=== PATIENT | male | born 1965 | race Caucasian/White ===

== ENCOUNTER 2017-04-22 23:25 | Emergency (ER) | payer OTHER ==
[2017-04-22] MEDS ORDERED: NS 1000 ML 1,000 ML ONE (23:29)
[2017-04-22 23:46] VITALS: BMI 24.4
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
[2017-04-23 00:17] LABS: BASOPHILS % (AUTO) 0.8 % (0.2-1.0); EOSINOPHILS # (AUTO) 0.1 x10^3/uL (0.0-0.2); EOSINOPHILS % (AUTO) 1.3 % (0.9-2.9); HEMOGLOBIN 14.6 g/dL (13.5-18.0); LYMPHOCYTES # (AUTO) 1.7 X10^3/uL (1.3-2.9); LYMPHOCYTES % (AUTO) 29.5 % (21.0-51.0); MEAN CORPUSCULAR HEMOGLOBIN 28.5 pg (27.0-34.0); MEAN CORPUSCULAR HGB CONC 33.9 g/dL (33.0-35.0); MEAN CORPUSCULAR VOLUME 84.1 fL (80.0-100.0); MEAN PLATELET VOLUME 10.5 fL (7.4-11.0); MONOCYTES # (AUTO) 0.5 x10^3/uL (0.3-0.8); MONOCYTES % (AUTO) 9.3 % (0.0-13.0); NEUTROPHILS # (AUTO) 3.4 x10^3/uL (2.2-4.8); NEUTROPHILS % (AUTO) 59.1 % (42.0-75.0); PLATELET COUNT 101 X10^3/uL (150.0-450.0); RED BLOOD COUNT 5.12 X10^6/uL (4.7-6.0); RED CELL DISTRIBUTION WIDTH 14.6 % (11.6-16.5); WHITE BLOOD COUNT 5.8 X10^3/uL (3.6-10.0)
[2017-04-23 00:23] LABS: ALANINE AMINOTRANSFERASE 34 Units/L (12-78); ALBUMIN 3.4 g/dL (3.4-5.0); ALKALINE PHOSPHATASE 173 Units/L (46-116); ASPARTATE AMINO TRANSFERASE 13 Units/L (15-37); BLOOD UREA NITROGEN 13 mg/dL (7-18); CALCIUM 8.6 mg/dL (8.5-10.1); CHLORIDE 98 mmol/L (98-107); COR NA(FOR HYPERGLY) 141 mmol/L (136-145); CREATININE 1.56 mg/dL (0.70-1.30); SODIUM 133 mmol/L (136-145); TOTAL PROTEIN 6.8 g/dL (6.4-8.2); eGFR BLACK RACES 60 (>60); eGFR NON BLACK RACES 50 (>60)
[2017-04-23 00:35] LABS: HEMOGLOBIN A1C 10.2 % (4.5-6.2)
[2017-04-23 00:47] LABS: CKMB % 1.3 % (<4); CREATINE KINASE 78 Units/L (39-308); CREATINE KINASE MB < 1.0 ng/mL (0-4.0); TROPONIN I < 0.02 ng/mL (0-1.5)
--- NOTE | 2017-04-23 02:08 | CT ---
CT head without contrast Indication: New onset seizure Technique: Helical CT images of the brain were obtained without IV contrast. Reformatted images in th e coronal and sagittal planes were also generated for review. Comparison: 01/18/2016 Findings: The brain is stable in appearance since prior exam. There is unchanged encephalomalacia of the right temporoparietal lobe, likely postsurgical given adjacent parietal craniotomy defect. Chronic appearin g atrophy of the left frontal and bilateral temporal lobes also appears stable. There is moderate gen eralized atrophy with proportional compensatory ventricular and sulcal enlargement. Mild periventricu lar and subcortical white matter microangiopathic disease also appears similar. No intracranial hemorrhage, visible acute infarction, extra-axial collection or mass is otherwise veronica ntified. The visualized paranasal sinuses and mastoid air cells are clear. Remote left medial orbital wall fracture is again noted. No acute osseous or soft tissue abnormality is otherwise identified. Impression: No acute abnormality or significant change since prior exam. Stable postsurgical changes and chronic appearing encephalomalacia of the right parietal, left fronta l and bilateral temporal lobes. Reported By:
[2017-04-23 03:01] VITALS: BP 140/73
== END 2017-04-23 03:05 | disposition home or self-care (01) ==
LOC: ER 23:25
DX: R56.9 Unspecified convulsions (principal); R73.9 Hyperglycemia, unspecified
CPT/HCPCS: 36415; 70450; 80053; 82009; 82550; 82553; 83036; 84484; 85025; 93005; 93010; 96365; 99283; A4222

== ENCOUNTER 2017-10-20 00:33 | Emergency (ER) | payer OTHER ==
[2017-10-20 00:46] VITALS: BP 124/79; BMI 27.3
[2017-10-20] MEDS ORDERED: SALINE 3% 15 ML NEB TX ONE (01:53)
--- NOTE | 2017-10-20 01:55 | DR.AMS ---
HPI - Time Seen Time seen: 01:49 - PCP Primary Care Physician: MARQUIS - Complaint Cheif Complaint Doctors Comments: states patient has been having fever, high pulse, lethargy with problems breathing for the past 2-3 hours getting worst. States his temperature at home was 99 but had gone up to 101 in the emergency room. States she has not given him anything for fever. Family states he was admitted in [place] recently with similar problems and they found he had aspiration pneumonia. Family states he gets choked when he eats and he tries to eat to fast and the food gets stuck in his throat at times. states he has had problems since his brain injury in 2014. Family denies any recent trauma. He denies chest pain, cold or cough. Chief Complaint:: STARTED HAVING CHILLS AND WEAKNESS AROUND 2300 LAST NIGHT AND STATES THAT HE HAS BEEN VERY OUT OF CHARACTER AND HAVING ALTERED MENTAL STATUS Self Treatment fo Chief Complaint: WAS IN HOSPITAL IN [place] FOR ASPIRATION PNEUMONIA - Reviewed Nurses Notes Reviewed: Yes - Source History Provided: Patient, Significant Other - Mode of Arrival Mode of Arrival: Wheelchair - Timing Onset of Chief Complaint: 10/19/17 Came On: Gradually Symptoms: Worsening Symptom Onset: Unknown - Duration Duration: Constant How lon Duration: Hours - Quality Quality: Decreased Alertness, Change in Behavior, Confusion - Severity Severity: Severe, Unable to care for self - Context Recent: Fever, Cough History Of: CVA, Dementia - Associated Signs and Symptoms Associated Signs and Symptoms: Change in Behavior, Change in Memory, Decreased Oral Intake PMH - PMH Past Medical History: Yes Past Medical History: Anxiety, Arthritis, Depression, Diabetes, Dyslipidemia, GERD, Hypertension, Seizures Past Medical History Comment: TRAUMATIC BRAIN INJURY Past Surgical History: Yes Surgical History: Ortho Surgery Past Surgical History Comment: BRAIN SURGERY 2014, BACK SURGERY 1994 - Family History History of Family Medical Conditions: Yes Family Medical History: Diabetes Mellitus, Hypertension - Social History Does patient currently use any type of tobacco product: No Have you used tobacco products in the last 12 months: No Type of Tobacco Use: None Does any household member use tobacco: No Alcohol Use: None Do you use any recreational Drugs:: No Lives With: Family Lives Where: Home - infectious screening In the last 2 months have you had wt loss of >10#?: NO Have you had fever, night sweats or hemotysis?: No Have you traveled outside the country in the last 6 months?: No Isolation: Standard ROS - Review of Systems Constitutional: No Symptoms Reported, Fever, Weakness, Loss of Appetite Eyes: No Symptoms Reported ENTM: No Symptoms Reported Respiratoy: No Symptoms Reported. negative: See HPI, Productive Cough, Non- Productive Cough, Moist Cough, Dry Cough, Hacking Cough, Barking Cough, Brassy Cough, Orthopnea, Short of Breath, Stridor, Wheezing, Hemoptysis, Other Cardiovascular: No Symptoms Reported Gastrointestinal/Abdominal: No Symptoms Reported Genitourinary: No Symptoms Reported. negative: See HPI, Discharge, Dysuria, Frequency, Hematuria, Pain, Bleeding, Other Neurological: No Symptoms Reported, Weakness Musculoskeletal: No Symptoms Reported Integumentary: No Symptoms Reported Hematologic/Lymphatic: No Symptoms Reported Endocrine: No Symptoms Reported Psychiatric: No Symptoms Reported. negative: See HPI, Anxiety, Depression, Hallucinations, Excessive crying, Suicidal, Other PE - Vitals Vital Signs: Temp Pulse Resp BP BP Pulse Ox 10/20/17 00:35 101.2 F H 138 H 24 124/79 97 04/23/17 03:00 140/73 140/73 - General Limitations: No Limitations General Appearance: Alert, In Distress (moderate) - Head Head Exam: Normal Inspection, Atraumatic, Normocephalic Head Exam Physical: negative: Laceration, Abrasion, Contusion, Hematoma, Raccoon Eyes, Wheat's Sign, Tenderness of Temporal Artery, CSF Rhinorrhea, CSF Otorrhea, Other - Eyes Eye exam: Normal Appearance, PERRL, EOMI. negative: Scleral Icterus, Conjunctival Injection, Nystagmus, Miosis, Mydrasis, Periorbital Swelling, Periorbital Tenderness, Other Pupils: Regular, Round: Bilateral - ENT ENT Exam: Normal Exam, Normal Oropharynx, Normal External Ear Exam, Mucous Membranes Moist, TM's Normal Bilaterally External Ear Exam: Normal External Inspection TM/Canal Exam: Bilateral Normal Nose Exam: Normal Nose Exam Mouth Exam: Normal Inspection. negative: Drooling, Trismus, Lip Swelling, Tongue Elevation, Tongue Swelling, Laceration, Other Throat Exam: Normal Inspection - Neck Neck Exam: Normal Inspection, Full ROM, Trachea Midline. negative: Tenderness, Meningismus, Lymphadenopathy, Thyromegaly, Other - Chest Chest Inspection: Normal Inspection, Symmetric Chest Wall Rise - Respiratory Respiratory Exam: Normal Lung Sounds Bilat Respiratory Exam: Bilateral Clear to Auscultation, Bilateral Decreased Breath Sounds - Cardiovascular Cardiovascular Exam: Regular Rate, Normal Rhythm, Normal Heart Sounds, Systolic Murmur - Abdominal Exam Abdominal Exam: Normal Inspection, Normal Bowel Sounds, Soft Abdominal Tenderness: negative: RUQ, RLQ, LUQ, LLQ, Epigastrium, Suprapubic, Diffuse, Mild, Moderate, Severe, Other - Extremities Extremities Exam: Normal Inspection, Full ROM, Normal Capillary Refill. negative: Tenderness, Edema, Joint Swelling, Calf Tenderness, Other - Back Back Exam: Normal Inspection, Full ROM - Neurological Neurological Exam: Alert, Oriented X3, CN II-XII Intact, Normal Gait, Reflexes Normal Patient Oriented To: Person, Place, Time Speech: Expressive Aphasia Cranial Nerve Exam: EOM Function (II, III, IV, ): Normal, Facial Sensation (V) : Normal, Facial Palsy (VII): Normal, Gag reflex (XI): Normal, Spinal Accessory Function (XI): Normal, Tongue Deviation: Normal Cerebellar Function: Normal Gait Motor Strength - LUE: 5/5 Motor Strength - RUE: 5/5 Motor Strength - LLE: 5/5 Motor Strength - RLE: 5/5 Upper Motor Neuron Exam: Sensory Extinction: Normal Sensory Exam Upper Extremity: Light Touch: Normal DTR: Patellar (L): 3+, patellar (R): 3+ - Psychological Psychiatric Exam: Normal Affect, Normal Mood Expanded Psychiatric Exam: Poor Eye Contact - Skin Skin Exam: Warm, Dry, Intact, Normal Color ROR - Labs Reviewed Laboratory Results Reviewed?: Yes Result Diagrams: 10/20/17 02:05 10/20/17 02:05 Laboratory: WBC 10.7 X10^3/uL (3.6-10.0) H 10/20/17 02:05 RBC 4.83 X10^6/uL (4.7-6.0) 10/20/17 02:05 Hgb 14.2 g/dL (13.5-18.0) 10/20/17 02:05 Hct 41.0 % (42.0-54.0) L 10/20/17 02:05 MCV 84.9 fL (80.0-100.0) 10/20/17 02:05 MCH 29.3 pg (27.0-34.0) 10/20/17 02:05 MCHC 34.6 g/dL (33.0-35.0) 10/20/17 02:05 RDW 15.9 % (11.6-16.5) 10/20/17 02:05 Plt Count 104 X10^3/uL (150.0-450.0) L 10/20/17 02:05 Plt Count Comment Adequate (ADEQUATE) 10/20/17 02:05 MPV 9.6 fL (7.4-11.0) 10/20/17 02:05 Neut % (Auto) 91.8 % (42.0-75.0) H 10/20/17 02:05 Lymph % (Auto) 3.2 % (21.0-51.0) L 10/20/17 02:05 [place] % (Auto) 4.4 % (0.0-13.0) 10/20/17 02:05 Eos % (Auto) 0.2 % (0.9-2.9) L 10/20/17 02:05 Baso % (Auto) 0.4 % (0.2-1.0) 10/20/17 02:05 Neut # (Auto) 9.8 x10^3/uL (2.2-4.8) H 10/20/17 02:05 Lymph # (Auto) 0.3 X10^3/uL (1.3-2.9) L 10/20/17 02:05 [place] # (Auto) 0.5 x10^3/uL (0.3-0.8) 10/20/17 02:05 Eos # (Auto) 0.0 x10^3/uL (0.0-0.2) 10/20/17 02:05 Baso # (Auto) 0.0 X10^3/uL (0.0-0.1) 10/20/17 02:05 Absolute Nucleated RBC 0.0 /100WBC 10/20/17 02:05 Total Counted 100 10/20/17 02:05 Neutrophils % (Manual) 86 % (39-76) H 10/20/17 02:05 Band Neutrophils % 6 % (0-10) 10/20/17 02:05 Lymphocytes % (Manual) 6 % (13-43) L 10/20/17 02:05 Monocytes % (Manual) 2 % (4-9) L 10/20/17 02:05 Plt Morphology Comment Normal (NORMAL) 10/20/17 02:05 RBC Morphology Normal (NORMAL) 10/20/17 02:05 Sodium 136 mmol/L (136-145) 10/20/17 02:05 Corrected Sodium 137 mmol/L (136-145) 10/20/17 02:05 Potassium 4.9 mmol/L (3.5-5.1) 10/20/17 02:05 Chloride 99 mmol/L (98-107) 10/20/17 02:05 Carbon Dioxide 26.4 mmol/L (21-32) 10/20/17 02:05 BUN 25 mg/dL (7-18) H 10/20/17 02:05 Creatinine 1.40 mg/dL (0.70-1.30) H 10/20/17 02:05 Est GFR (MDRD) Af Amer > 60 (>60) 10/20/17 02:05 Est GFR (MDRD) Non-Af 57 (>60) L 10/20/17 02:05 Glucose 127 mg/dL (65-99) H 10/20/17 02:05 Calcium 9.1 mg/dL (8.5-10.1) 10/20/17 02:05 Corrected Calcium TNP 10/20/17 02:05 Total Bilirubin 0.40 mg/dL (0.2-1.0) 10/20/17 02:05 AST 13 Units/L (15-37) L 10/20/17 02:05 ALT 22 Units/L (12-78) 10/20/17 02:05 Alkaline Phosphatase 112 Units/L (46-116) 10/20/17 02:05 Total Protein 8.0 g/dL (6.4-8.2) 10/20/17 02:05 Albumin 4.0 g/dL (3.4-5.0) 10/20/17 02:05 Globulin 4.0 g/dL (2.5-4.5) 10/20/17 02:05 Albumin/Globulin Ratio 1.0 Ratio (1.1-2.1) L 10/20/17 02:05 Specimen Type Clean catch urine 10/20/17 05:14 Urine Color Yellow (YELLOW) 10/20/17 05:14 Urine Appearance Clear (CLEAR) 10/20/17 05:14 Urine pH 6.0 (5.0 - 8.0) 10/20/17 05:14 Ur Specific [place] 1.015 (1.000-1.030) 10/20/17 05:14 Urine Protein Negative (NEGATIVE) 10/20/17 05:14 Urine Glucose (UA) Negative (NEGATIVE) 10/20/17 05:14 Urine Ketones Negative (NEGATIVE) 10/20/17 05:14 Urine Occult Blood Negative (NEGATIVE) 10/20/17 05:14 Urine Nitrite Negative (NEGATIVE) 10/20/17 05:14 Urine Bilirubin Negative (NEGATIVE) 10/20/17 05:14 Urine Urobilinogen Normal (NORMAL) 10/20/17 05:14 Ur Leukocyte Esterase Negative (NEGATIVE) 10/20/17 05:14 - EKG Rate: 53 [place]: Normal Rhythm: NSR ST: Nonsp - Diagnosis Discharge Problem: COPD exacerbation, History of traumatic brain injury, Hyperglycemia, Chronic kidney disease (CKD), Bronchitis - Discharge Plan Disposition: HOME, SELF-CARE Condition: Stable Prescriptions: Azithromycin [Zithromax] 1 dose PO DAILY #6 tab Azithromycin [Zithromax] 1 dose PO DAILY #6 tab - Follow ups/Referrals Follow ups/Referrals: DU CHO [Primary Care Provider] - 3 days - Instructions Instructions: Hyperglycemia, [id number], Chronic Obstructive Pulmonary Disease Exacerbation, [id number], Preventing Chronic Kidney Disease, Chronic Bronchitis
[2017-10-20] MEDS ORDERED: SALINE 3% 15 ML NEB TX NEB ONE (01:56)
[2017-10-20] MEDS ORDERED: NS 1000 ML 1,000 ML IV SCH (02:00)
[2017-10-20 02:15] LABS: BASOPHILS % (AUTO) 0.4 % (0.2-1.0); EOSINOPHILS % (AUTO) 0.2 % (0.9-2.9); HEMOGLOBIN 14.2 g/dL (13.5-18.0); LYMPHOCYTES # (AUTO) 0.3 X10^3/uL (1.3-2.9); LYMPHOCYTES % (AUTO) 3.2 % (21.0-51.0); MEAN CORPUSCULAR HEMOGLOBIN 29.3 pg (27.0-34.0); MEAN CORPUSCULAR HGB CONC 34.6 g/dL (33.0-35.0); MEAN CORPUSCULAR VOLUME 84.9 fL (80.0-100.0); MEAN PLATELET VOLUME 9.6 fL (7.4-11.0); MONOCYTES # (AUTO) 0.5 x10^3/uL (0.3-0.8); MONOCYTES % (AUTO) 4.4 % (0.0-13.0); NEUTROPHILS # (AUTO) 9.8 x10^3/uL (2.2-4.8); NEUTROPHILS % (AUTO) 91.8 % (42.0-75.0); PLATELET COUNT 104 X10^3/uL (150.0-450.0); RED BLOOD COUNT 4.83 X10^6/uL (4.7-6.0); RED CELL DISTRIBUTION WIDTH 15.9 % (11.6-16.5); WHITE BLOOD COUNT 10.7 X10^3/uL (3.6-10.0)
[2017-10-20 02:26] LABS: ALANINE AMINOTRANSFERASE 22 Units/L (12-78); ALKALINE PHOSPHATASE 112 Units/L (46-116); ASPARTATE AMINO TRANSFERASE 13 Units/L (15-37); BLOOD UREA NITROGEN 25 mg/dL (7-18); CALCIUM 9.1 mg/dL (8.5-10.1); CARBON DIOXIDE 26.4 mmol/L (21-32); CHLORIDE 99 mmol/L (98-107); COR NA(FOR HYPERGLY) 137 mmol/L (136-145); SODIUM 136 mmol/L (136-145); eGFR BLACK RACES > 60 (>60); eGFR NON BLACK RACES 57 (>60)
[2017-10-20] MEDS ORDERED: NS 1000 ML 1,000 ML ONE (02:29)
[2017-10-20] MEDS ORDERED: LEVAQUIN PREMIX IV 750 MG 750 MG/150 ML BAG IV ONE (02:32)
[2017-10-20 02:41] LABS: BAND NEUTROPHILS % 6 % (0-10); PLATELET MORPHOLOGY COMMENT NORMAL (NORMAL)
--- NOTE | 2017-10-20 04:28 | RAD ---
Chest PA and lateral Indication: Chills and weakness. Comparison: 01/18/2016 Findings: Aorta is tortuous without pneumothorax, effusion or consolidation. Heart size upper limits of normal. Lungs are mildly hyperinflated. Impression: Mild COPD and borderline enlarged heart without other acute chest process Reported By:
[2017-10-20 05:20] LABS: BILIRUBIN,URINE NEGATIVE (NEGATIVE); BLOOD/HEMOGLOBIN,URINE NEGATIVE (NEGATIVE); GLUCOSE, URINE NEGATIVE (NEGATIVE); KETONES,URINE NEGATIVE (NEGATIVE); LEUKOCYTE ESTERASE ,URINE NEGATIVE (NEGATIVE); NITRITES,URINE NEGATIVE (NEGATIVE); PROTEIN,URINE NEGATIVE (NEGATIVE); UROBILINOGEN,URINE NORMAL (NORMAL)
[2017-10-20 05:24] LABS: APPEARANCE,URINE CLEAR (CLEAR); COLOR,URINE YELLOW (YELLOW)
[2017-10-20] MEDS ORDERED: SOLU-Medrol 125 MG VIAL IVP ONE (05:29)
[2017-10-20] MEDS ORDERED: SOLU-Medrol 125 MG VIAL ONE (05:34)
[2017-10-20] MEDS ORDERED: TYLENOL 325 MG TAB PO ONE ×2 (05:36→05:38)
[2017-10-20] MEDS ORDERED: ROCEPHIN 1 GM IV PREMIX 1 GM/50 ML IV.SOLN. IV ONE ×2 (05:36→05:37)
[2017-10-20] MEDS ORDERED: LEVAQUIN PREMIX IV 750 MG 750 MG/150 ML BAG IV SCH (09:00)
== END 2017-10-20 06:15 | disposition home or self-care (01) ==
LOC: ER 00:33
DX: J44.1 Chronic obstructive pulmonary disease with (acute) exacerbation (principal); Z87.820 Personal history of traumatic brain injury; R73.9 Hyperglycemia, unspecified; N18.9 Chronic kidney disease, unspecified; J40 Bronchitis, not specified as acute or chronic
CPT/HCPCS: 36415; 71046; 80053; 81003; 85025; 87040; 94640; 96365; 96367; 96374; 99282; 99283; A4222; J0696; J1956; J2930

== ENCOUNTER 2018-04-03 04:55 | Inpatient (IN) ==
[2018-04-03] MEDS ORDERED: NS 1000 ML 1,000 ML ONE ×2 (05:07→11:24)
[2018-04-03] MEDS ORDERED: NS 1000 ML 1,000 ML IV ONE (05:17)
[2018-04-03] MEDS ORDERED: TORADOL 30 MG VIAL IVP ONE (05:23)
[2018-04-03] MEDS ORDERED: TORADOL 30 MG VIAL ONE (05:24)
[2018-04-03 05:33] LABS: BASOPHILS # (AUTO) 0.1 X10^3/uL (0.0-0.1); BASOPHILS % (AUTO) 0.6 % (0.2-1.0); EOSINOPHILS % (AUTO) 0.1 % (0.9-2.9); HEMATOCRIT 41.1 % (42.0-54.0); LYMPHOCYTES # (AUTO) 0.6 X10^3/uL (1.3-2.9); LYMPHOCYTES % (AUTO) 5.9 % (21.0-51.0); MEAN CORPUSCULAR HEMOGLOBIN 29.4 pg (27.0-34.0); MEAN CORPUSCULAR VOLUME 86.6 fL (80.0-100.0); MEAN PLATELET VOLUME 10.7 fL (7.4-11.0); MONOCYTES # (AUTO) 0.4 x10^3/uL (0.3-0.8); MONOCYTES % (AUTO) 3.8 % (0.0-13.0); NEUTROPHILS # (AUTO) 9.8 x10^3/uL (2.2-4.8); NEUTROPHILS % (AUTO) 89.6 % (42.0-75.0); PLATELET COUNT 93 X10^3/uL (150.0-450.0); RED BLOOD COUNT 4.75 X10^6/uL (4.7-6.0); RED CELL DISTRIBUTION WIDTH 15.5 % (11.6-16.5)
--- NOTE | 2018-04-03 05:36 | DR.GENAD ---
HPI Time Seen Time Seen by Provider: 04/03/18 05:08 HPI Comment HPI Comment: PATIENT IS 52YR OLD WM WITH TRAUMATIC BRAIN INJURY, DIABETES AND HYPERTENSION HERE IN ED DIAPHORETIC AND CLAMMY AND CONFUSED. CURRENTLY ON ANTIBIOTIC FOR ASPIRATION PNEUMONIA. CONTINUE TO ASPIRATE. HE GOT WORSE THIS AM. Complaint/Symptoms Chief Complaint Doctors Comments: FEVER, CHILLS AND CONFUSION NOTED THIS AM. Chief Complaint:: pt's heart rate elevated and cool and clammy pt's states" he woke up at 3 am shivering and confused he has these spells sine the brain injury" Source History Provided: Family Member Mode of Arrival Mode of Arrival: Wheelchair Timing Onset of Chief Complaint: 04/03/18 Duration Duration: Constant Duration: Days Location Location: CHEST Severity Severity: Severe Modifying Factors Worsens:: WITH COUGHING AND LYING DOWN Improves:: BY SITTING UP Associated Signs and Symptoms Associated Signs and Symptoms: DIAPHORESIS, SOB PMH PMH Past Medical History: Yes Past Medical History: Anxiety, Arthritis, Depression, Diabetes, Dyslipidemia, GERD, Hypertension and Seizures Past Medical History Comment: TBI 2014 Past Surgical History: Yes Surgical History: Ortho Surgery Past Surgical History Comment: BRAIN SURGERY LT KNEE AND BACK Family History History of Family Medical Conditions: Yes Family Medical History: Diabetes Mellitus and Hypertension Social History Does any household member use tobacco: No Alcohol Use: None Do you use any recreational Drugs:: No Lives With: Family Lives Where: Home infectious screening In the last 2 months have you had wt loss of >10#?: NO Have you had fever, night sweats or hemotysis?: No Have you traveled outside the country in the last 6 months?: No Isolation: Standard ROS Review of Systems Constitutional: Chills, Diaphoresis, Fever, Weakness and Fatigue Eyes: negative Eye Pain and Discharge ENTM: Nose Congestion Respiratoy: Productive Cough, Short of Breath and Wheezing Cardiovascular: Chest Pain and Palpitations Gastrointestinal/Abdominal: No Symptoms Reported Genitourinary: No Symptoms Reported Neurological: Headache, Weakness and Dizziness Musculoskeletal: Muscle Pain Integumentary: Change in Color and Dryness Hematologic/Lymphatic: Easy Bleeding Endocrine: No Symptoms Reported Psychiatric: Depression All Other Systems: Reviewed and Negative Unable to Obtain Due To: Altered mental status PE Vital Signs Vitals: Temperature 99.1 F Pulse Rate [Right] 122 Pulse Rate 117 Respiratory Rate 21 Blood Pressure [Left Arm] 117/68 Blood Pressure 94/66 O2 Sat by Pulse Oximetry 94 General Limitations: Altered Mental Status General Appearance: Alert and In Distress Head Head Exam: Normal Inspection Eyes Eye exam: Normal Appearance and PERRL; negative Scleral Icterus and Conjunctival Injection ENT ENT Exam: Normal External Ear Exam External Ear Exam: Normal External Inspection TM/Canal Exam: Bilateral: Normal Nose Exam: Normal Nose Exam Mouth Exam: Normal Inspection Throat Exam: Tonsillar Erythema; negative Tonsillomegaly and Tonsillar Exudate Neck Neck Exam: Normal Inspection and Trachea Midline; negative Tenderness and Meningismus Chest Chest Inspection: Symmetric Chest Wall Rise Respiratory Respiratory Exam: Respiratory Distress Respiratory Exam: Bilateral: Wheezing, Bilateral: Rales and Bilateral: Rhonchi, Upper: Wheezing and Lower: Wheezing, Lower: Rales and Lower: Rhonchi Cardiovascular Cardiovascular Exam: Tachycardia Abdominal Exam Abdominal Exam: Normal Bowel Sounds and Soft; negative Tenderness Extremities Extremities Exam: Edema Back Back Exam: Tenderness (LOWER BACK) Neurologic Neurological Exam: Other (CONFUSED); negative Motor Sensory Deficit Psychiatric Psychiatric Exam: Anxious Skin Skin Exam: Dry MDM Differential Diagnosis Differential Diagnosis: CVA, AR, PNEUMONIA, UTI, SEPSIS COURSE Treatment Treatment: SEE ORDERS Consultation Consultation Comments: DISCUSSED PATIENT WITH . HE WILL ADMIT PAT IENT. Education/Counseling Education/Counseling: Patient and Family Educated On: Diagnosis ROR Labs Reviewed Laboratory Results Reviewed?: Yes Result Diagrams: 04/03/18 05:20 04/03/18 05:20 Laboratory: WBC 11.0 X10^3/uL (3.6-10.0) H 04/03/18 05:20 RBC 4.75 X10^6/uL (4.7-6.0) 04/03/18 05:20 Hgb 14.0 g/dL (13.5-18.0) 04/03/18 05:20 Hct 41.1 % (42.0-54.0) L 04/03/18 05:20 MCV 86.6 fL (80.0-100.0) 04/03/18 05:20 MCH 29.4 pg (27.0-34.0) 04/03/18 05:20 MCHC 34.0 g/dL (33.0-35.0) 04/03/18 05:20 RDW 15.5 % (11.6-16.5) 04/03/18 05:20 Plt Count 93 X10^3/uL (150.0-450.0) L 04/03/18 05:20 MPV 10.7 fL (7.4-11.0) 04/03/18 05:20 Neut % (Auto) 89.6 % (42.0-75.0) H 04/03/18 05:20 Lymph % (Auto) 5.9 % (21.0-51.0) L 04/03/18 05:20 [place] % (Auto) 3.8 % (0.0-13.0) 04/03/18 05:20 Eos % (Auto) 0.1 % (0.9-2.9) L 04/03/18 05:20 Baso % (Auto) 0.6 % (0.2-1.0) 04/03/18 05:20 Neut # (Auto) 9.8 x10^3/uL (2.2-4.8) H 04/03/18 05:20 Lymph # (Auto) 0.6 X10^3/uL (1.3-2.9) L 04/03/18 05:20 [place] # (Auto) 0.4 x10^3/uL (0.3-0.8) 04/03/18 05:20 Eos # (Auto) 0.0 x10^3/uL (0.0-0.2) 04/03/18 05:20 Baso # (Auto) 0.1 X10^3/uL (0.0-0.1) 04/03/18 05:20 Absolute Nucleated RBC 0.0 /100WBC 04/03/18 05:20 Fibrinogen 315 mg/dL (239-489) 04/03/18 05:20 Sodium 142 mmol/L (136-145) 04/03/18 05:20 Corrected Sodium 143 mmol/L (136-145) 04/03/18 05:20 Potassium 4.4 mmol/L (3.5-5.1) 04/03/18 05:20 Chloride 105 mmol/L (98-107) 04/03/18 05:20 Carbon Dioxide 25.3 mmol/L (21-32) 04/03/18 05:20 BUN 18 mg/dL (7-18) 04/03/18 05:20 Creatinine 1.30 mg/dL (0.70-1.30) 04/03/18 05:20 Est GFR (MDRD) Af Amer > 60 (>60) 04/03/18 05:20 Est GFR (MDRD) Non-Af > 60 (>60) 04/03/18 05:20 Glucose 142 mg/dL (65-99) H 04/03/18 05:20 Lactic Acid 2.7 mmol/L (0.4-2.0) H 04/03/18 05:20 Calcium 8.8 mg/dL (8.5-10.1) 04/03/18 05:20 Corrected Calcium TNP 04/03/18 05:20 Total Bilirubin 0.40 mg/dL (0.2-1.0) 04/03/18 05:20 AST 10 Units/L (15-37) L 04/03/18 05:20 ALT 21 Units/L (12-78) 04/03/18 05:20 Alkaline Phosphatase 78 Units/L (46-116) 04/03/18 05:20 Total Protein 7.0 g/dL (6.4-8.2) 04/03/18 05:20 Albumin 3.5 g/dL (3.4-5.0) 04/03/18 05:20 Globulin 3.5 g/dL (2.5-4.5) 04/03/18 05:20 Albumin/Globulin Ratio 1.0 Ratio (1.1-2.1) L 04/03/18 05:20 Specimen Type Clean catch urine 04/03/18 05:29 Urine Color Yellow (YELLOW) 04/03/18 05:29 Urine Appearance Clear (CLEAR) 04/03/18 05:29 Urine pH 5.0 (5.0 - 8.0) 04/03/18 05:29 Ur Specific [place] 1.010 (1.000-1.030) 04/03/18 05:29 Urine Protein Negative (NEGATIVE) 04/03/18 05:29 Urine Glucose (UA) Negative (NEGATIVE) 04/03/18 05:29 Urine Ketones Negative (NEGATIVE) 04/03/18 05:29 Urine Occult Blood Negative (NEGATIVE) 04/03/18 05:29 Urine Nitrite Negative (NEGATIVE) 04/03/18 05:29 Urine Bilirubin Negative (NEGATIVE) 04/03/18 05:29 Urine Urobilinogen Normal (NORMAL) 04/03/18 05:29 Ur Leukocyte Esterase 1+ (NEGATIVE) 04/03/18 05:29 Urine RBC None seen /HPF (NONE SEEN) 04/03/18 05:29 Urine WBC None seen /HPF (NONE SEEN) 04/03/18 05:29 Ur Squamous Epith Cells Rare /HPF (NEGATIVE) 04/03/18 05:29 Urine Bacteria Negative /HPF (NEGATIVE) 04/03/18 05:29 Ur Culture Indicated? No/not indicated 04/03/18 05:29 XRAY XRAY Interpreted by: Radiologist XRAY Findings: DISCUSSED REPORT WITH PATIENT AND HIS . EKG [place]: Normal Rhythm: ST Diagnosis Discharge Problem: Pneumonia Qualifiers: Pneumonia type: aspiration pneumonia Aspiration pneumonia type: due to gastric secretions Laterality: bilateral Lung location: lower lobe of lung Qualified Code(s): J69.0 - Pneumonitis due to inhalation of food and vomit Sepsis Qualifiers: Sepsis type: sepsis due to unspecified organism Qualified Code(s): A41.9 - Sepsis, unspecified organism
[2018-04-03 05:44] LABS: ALANINE AMINOTRANSFERASE 21 Units/L (12-78); ALBUMIN 3.5 g/dL (3.4-5.0); ALKALINE PHOSPHATASE 78 Units/L (46-116); ASPARTATE AMINO TRANSFERASE 10 Units/L (15-37); BLOOD UREA NITROGEN 18 mg/dL (7-18); CALCIUM 8.8 mg/dL (8.5-10.1); CARBON DIOXIDE 25.3 mmol/L (21-32); CHLORIDE 105 mmol/L (98-107); COR NA(FOR HYPERGLY) 143 mmol/L (136-145); SODIUM 142 mmol/L (136-145); eGFR NON BLACK RACES > 60 (>60)
[2018-04-03 05:50] LABS: LACTIC ACID 2.7 mmol/L (0.4-2.0)
[2018-04-03 05:53] LABS: BILIRUBIN,URINE NEGATIVE (NEGATIVE); BLOOD/HEMOGLOBIN,URINE NEGATIVE (NEGATIVE); GLUCOSE, URINE NEGATIVE (NEGATIVE); KETONES,URINE NEGATIVE (NEGATIVE); LEUKOCYTE ESTERASE ,URINE 1+ (NEGATIVE); NITRITES,URINE NEGATIVE (NEGATIVE); PROTEIN,URINE NEGATIVE (NEGATIVE); UROBILINOGEN,URINE NORMAL (NORMAL)
[2018-04-03] MEDS ORDERED: OFIRMEV IV 1000 MG VIAL 1,000 MG/100 ML VIAL IV ONE ×2 (06:00→06:04)
[2018-04-03 06:02] LABS: APPEARANCE,URINE CLEAR (CLEAR); COLOR,URINE YELLOW (YELLOW)
[2018-04-03 06:03] LABS: BACTERIA,URINE NEGATIVE /HPF (NEGATIVE); RBC,URINE NONE SEEN /HPF (NONE SEEN); SQUAMOUS EPITHELIAL CELL,UR RARE /HPF (NEGATIVE)
--- NOTE | 2018-04-03 06:33 | CT ---
CT HEAD WITHOUT CONTRAST CLINICAL HISTORY: 52-year-old male with confusion and prior brain injury. COMPARISON: CT head 04/23/2017. TECHNIQUE: Multiple, non-contrasted axial CT images were obtained from the skull base to the cranial vertex. Coronal and sagittal reformats were performed. FINDINGS: Unchanged appearance of right temporoparietal craniectomy and prior frontotemporoparietal craniotomy. There are no abnormal intra- or extra-axial fluid collections, midline shift, or mass effect. [place] ite differentiation is normal. Partially empty sella. Global cortical involutional changes are presen t that are advanced for the patient's stated age. The ventricular system is enlarged but commensurate with the degree of sulcal prominence. Chronic ischemic insult left frontal lobe with associated ence phalomalacia, chronic ischemic insult left temporal lobe with encephalomalacia, chronic ischemic insu lt right frontotemporoparietal distribution with associated encephalomalacia. Chronic ischemic insult bilateral cerebellar hemispheres with small volume encephalomalacia, left greater than right. Perive ntricular and supraventricular white matter hypodensity is present that is nonspecific in appearance, but most likely to represent microvascular ischemic changes. Atherosclerotic vascular calcification is present within the carotid siphons and distal vertebral arteries. Chronic fracture left lamina papyracea with paranasal sinuses, mastoid air cells and tympanic cavitie s clear. IMPRESSION: 1. No definite evidence of an acute intracranial process. 2. Multifocal regions of chronic ischemic insult with associated encephalomalacia. 3. Moderate microvascular white matter ischemic changes, with associated volume loss. Reported By:
--- NOTE | 2018-04-03 06:54 | RAD ---
HISTORY: 52-year-old male with tachycardia Study: Frontal view of the chest. Comparison: Chest radiographs 10/20/2017 Findings: The trachea is midline. The cardiac silhouette is stably enlarged. Patchy consolidation right mid a nd lower lung superimposed upon chronic prominence of the interstitium perihilar lung markings. No ef fusion or pneumothorax. Soft tissues are unremarkable. Osseous structures are unremarkable. IMPRESSION: 1. Findings concerning for multifocal multi lobar pneumonia within the right hemithorax, correlate c linically and follow-up to resolution. Reported By:
[2018-04-03] MEDS ORDERED: LEVAQUIN PREMIX IV 750 MG 750 MG/150 ML BAG IV ONE ×2 (07:09→07:24)
[2018-04-03] MEDS ORDERED: AMANTADINE HCL 100 MG CAP PO SCH (08:53)
[2018-04-03] MEDS ORDERED: TUSSIONEX PENNKINETIC SUSP PO PRN (08:53)
[2018-04-03] MEDS ORDERED: ARICEPT TAB 10 MG PO SCH (09:00)
[2018-04-03] MEDS ORDERED: DUONEB 0.5 MG/3 MG ONE (09:17)
[2018-04-03] MEDS ORDERED: SALINE 3% 15 ML NEB TX ONE (09:17)
[2018-04-03] MEDS ORDERED: SALINE 3% 15 ML NEB TX NEB ONE (09:20)
[2018-04-03] MEDS: DUONEB 0.5 MG/3 MG NEB SCH ×4 (09:20→20:36)
[2018-04-03] MEDS: LEVAQUIN PREMIX IV 750 MG 750 MG/150 ML BAG IV SCH (09:22)
[2018-04-03] MEDS: VIBRAMYCIN 100 MG in NS 100 ML IV + SPIKE MINIBAG* 100 ML IV SCH ×2 (10:06→20:30)
[2018-04-03 10:23] VITALS: BMI 27.6
[2018-04-03] MEDS ORDERED: DEPAKOTE ER PO ONE (11:11)
[2018-04-03] MEDS ORDERED: GLUCOPHAGE ONE ×2 (11:14→20:07)
[2018-04-03] MEDS: PROTONIX TAB 40 MG PO SCH (11:15)
[2018-04-03] MEDS: ZOLOFT PO SCH (11:15)
[2018-04-03] MEDS: DEPAKOTE D.R. TAB PO SCH ×2 (11:15→20:31)
[2018-04-03] MEDS: ASPIRIN EC 81 MG PO SCH (11:15)
[2018-04-03] MEDS: GLUCOPHAGE PO SCH ×2 (11:15→20:32)
[2018-04-03] MEDS: ROBITUSSIN DM PO SCH ×4 (11:15→20:31)
[2018-04-03] MEDS: NORVASC TAB 10 MG PO SCH (11:15)
[2018-04-03] MEDS: METHYLPHENIDATE HCL 10 MG PO SCH (13:00)
[2018-04-03] MEDS ORDERED: FLUVIRIN IM ONE (13:52)
--- NOTE | 2018-04-03 18:01 | DR.H&P ---
H&P - History & Physical for Day of: H&P Date: 04/03/18 - Chief Complaint Chief Complaint: COUGH, CHEST CONGESTION, "FREQUENT ASPIRIATION" REPORTED BY SPOUSE - History of Present Illness History of Present Illness: 52 WM ER ADMISSION [facility] PRESENTING WITH CO ASPIRATION, PT HAS HX OF TRAUMATIC BRAIN INJURY AND SINCE THEN REPEATED ASPIRATION PNEUMONIA. PT HAD CXR IN ER WITH MULTI FOCAL PNEUMONIA. PT RECENTLY IN [facility] IN [facility] WITH PNEUMONIA WORKUP, WAS ON AUGMENT AT HOME PRIOR TO THIS EPISODES. PT HAD SWALLOW STUDY AT [facility] DURING THAT STAY, 03/17. PT ADMITTED TO ICU FOR TREATMENT OF ACUTE ASPIRATION PNEUMONIA, IV ATBX THERAPY, SPUTUM AND B LOOD CUTLURES ORDERED, IV HYDRATION - Past Medical History Past Medical History: Hypertension, Dyslipidemia, Diabetes, Depression, Anxiety, Seizures, GERD, Arthritis Additional Medical History: Traumatic Brain Injury 2014, Muscle Weakness, Chronic Back Pain, Left sided weakness, Chronic Neck Pain, Chronic Knee Pain, ADD - Past Surgical History Surgical History: Ortho Surgery Additional Surgical History: Left knee surgery, Back surgery, Hernia Repair, prior tracheostomy and peg tube with brain injury - Family History Family Medical History: Diabetes Mellitus, Hypertension - Social History Does patient currently use any type of tobacco product: No Have you used tobacco products in the last 12 months: No Type of Tobacco Use: None Does any household member use tobacco: No Alcohol Use: None Drug Use: None - Medications Home Medications: No Known Drug Allergies Allergy (Verified 04/22/17 23:29) CONTINUE taking the following medications alprazolam [Xanax] 1 mg PO HS PRN 04/03/18 [History] aspirin [Aspirin Low Dose] 81 mg PO DAILY 04/03/18 [History] divalproex [Depakote] 500 mg PO BID 04/03/18 [History] metformin [Glucophage] 500 mg PO BID 04/03/18 [History] - Review of Systems Constitutional: Weakness Eyes: No Symptoms Reported ENT: No Symptoms Reported Respiratory: Shortness of Breath, Sputum, Wheezing Cardiovascular: No Symptoms Reported Gastrointestinal: Other (FREQUENT CHOKING) Genitourinary: No Symptoms Reported Musculoskeletal: No Symptoms Reported Skin: No Symptoms Reported Neurological: Weakness, Confusion - Physical Exam Vital Signs: Temperature 98.3 F Pulse Rate [Right] 122 Pulse Rate 97 Respiratory Rate 22 Blood Pressure [Left Arm] 117/68 Blood Pressure 108/70 O2 Sat by Pulse Oximetry 95 Oriented: Person Eyes: Normal Ear: Normal Nose: Normal Throat: Normal Respiratory: Rhonchi Throughout, RLL Diminished, LLL Diminished Cardiovascular: Tachycardia. negative: Edema : Normal Auscultation: Bowel Sounds: Normal Palpation: Normal Tenderness: Normal Skin: Normal Musculoskeletal: Motor Deficit Mood Description: Calm Speech Pattern: Clear, Appropriate (BOTH APPROPRIATE AND UNAPPROPRIATE RESPONSES CHRONIC SINCE BRAIN INJURY), Inappropriate - Assessment/Plan (1) Pneumonia Qualifiers: Pneumonia type: aspiration pneumonia Aspiration pneumonia type: due to gastric secretions Laterality: bilateral Lung location: lower lobe of lung Qualified Code(s): J69.0 - Pneumonitis due to inhalation of food and vomit Status: Acute Plan: PNEUMONIA PROTOCOL. IV ATBX, RESP THERAPY, SUPPLEMENTAL O2. CHOKING PRECAUTIONS BEDSIDE SUCTION. SPUTUM AND BLOOD CULTURES. VERIFY HOME MEDS. RECORDS FROM [facility] FROM 03/17 STAY (2) Choking episode Status: Acute (3) GERD (gastroesophageal reflux disease) Qualifiers: Esophagitis presence: esophagitis presence not specified Qualified Code(s): K21.9 - Gastro-esophageal reflux disease without esophagitis Status: Chronic (4) History of traumatic brain injury Status: Chronic (5) Hypertension Status: Chronic (6) Chronic kidney disease (CKD) Status: Acute - Allergies Allergies/Adverse Reactions: Allergies Allergy/AdvReac Type Severity Reaction Status Date / Time No Known Drug Allergies Allergy Verified 04/22/17 23:29
[2018-04-03] MEDS ORDERED: DEPAKOTE D.R. TAB PO ONE (20:07)
[2018-04-03] MEDS: LIPITOR TAB 20 MG PO SCH (20:31)
[2018-04-03] MEDS: ARICEPT TAB 10 MG PO SCH (20:31)
[2018-04-03] MEDS: DESYREL PO PRN (20:31)
[2018-04-03] MEDS ORDERED: PATIENT'S HOME MEDICATION (Melatonin [Melatonin] 5 MG) PO SCH (21:00)
[2018-04-03] MEDS: XANAX PO PRN (22:23)
[2018-04-04] MEDS: DUONEB 0.5 MG/3 MG NEB SCH ×6 (01:08→21:07)
[2018-04-04 06:37] LABS: ALANINE AMINOTRANSFERASE 16 Units/L (12-78); ALBUMIN 2.6 g/dL (3.4-5.0); ALKALINE PHOSPHATASE 49 Units/L (46-116); ASPARTATE AMINO TRANSFERASE 11 Units/L (15-37); BLOOD UREA NITROGEN 16 mg/dL (7-18); CALCIUM 7.7 mg/dL (8.5-10.1); CARBON DIOXIDE 23.6 mmol/L (21-32); CHLORIDE 107 mmol/L (98-107); COR CA(FOR HYPOALB) 8.8 mg/dL (8.5-10.1); COR NA(FOR HYPERGLY) 141 mmol/L (136-145); CREATININE 1.13 mg/dL (0.70-1.30); SODIUM 141 mmol/L (136-145); TOTAL PROTEIN 5.6 g/dL (6.4-8.2); eGFR NON BLACK RACES > 60 (>60)
[2018-04-04 06:38] LABS: BASOPHILS % (AUTO) 0.3 % (0.2-1.0); EOSINOPHILS % (AUTO) 0.3 % (0.9-2.9); HEMATOCRIT 30.3 % (42.0-54.0); LYMPHOCYTES % (AUTO) 13.4 % (21.0-51.0); MEAN CORPUSCULAR HEMOGLOBIN 30.2 pg (27.0-34.0); MEAN CORPUSCULAR HGB CONC 34.6 g/dL (33.0-35.0); MEAN CORPUSCULAR VOLUME 87.4 fL (80.0-100.0); MEAN PLATELET VOLUME 9.6 fL (7.4-11.0); MONOCYTES # (AUTO) 0.5 x10^3/uL (0.3-0.8); MONOCYTES % (AUTO) 6.1 % (0.0-13.0); NEUTROPHILS # (AUTO) 6.1 x10^3/uL (2.2-4.8); NEUTROPHILS % (AUTO) 79.9 % (42.0-75.0); PLATELET COUNT 135 X10^3/uL (150.0-450.0); RED BLOOD COUNT 3.47 X10^6/uL (4.7-6.0); RED CELL DISTRIBUTION WIDTH 15.2 % (11.6-16.5); WHITE BLOOD COUNT 7.6 X10^3/uL (3.6-10.0)
[2018-04-04] MEDS ORDERED: NS 1000 ML 1,000 ML ONE (07:12)
[2018-04-04 07:16] LABS: HEMOGLOBIN 10.5 g/dL (13.5-18.0)
--- NOTE | 2018-04-04 07:29 | RAD ---
Chest, one view Indication: Pneumonia Comparison: 04/03/2018 Findings: There is stable mild cardiomegaly without congestive failure. There are persistent but impr oving patchy opacities within the mid and lower right lung. No new focal infiltrate is identified. Th ere is no significant pleural effusion or pneumothorax. There is no acute osseous abnormality. Impression: Persistent but improving right-sided airspace disease. Reported By:
[2018-04-04] MEDS ORDERED: DEPAKOTE D.R. TAB PO ONE ×2 (09:35→20:39)
[2018-04-04] MEDS ORDERED: GLUCOPHAGE ONE ×2 (09:35→20:39)
[2018-04-04] MEDS: DEPAKOTE D.R. TAB PO SCH ×2 (09:53→20:59)
[2018-04-04] MEDS: METHYLPHENIDATE HCL 10 MG PO SCH ×2 (09:53→11:19)
[2018-04-04] MEDS: ASPIRIN EC 81 MG PO SCH (09:53)
[2018-04-04] MEDS: GLUCOPHAGE PO SCH ×2 (09:53→20:59)
[2018-04-04] MEDS: NORVASC TAB 10 MG PO SCH (09:53)
[2018-04-04] MEDS: PROTONIX TAB 40 MG PO SCH (09:54)
[2018-04-04] MEDS: LEVAQUIN PREMIX IV 750 MG 750 MG/150 ML BAG IV SCH (09:54)
[2018-04-04] MEDS: ROBITUSSIN DM PO SCH ×4 (09:54→21:00)
[2018-04-04] MEDS: ZOLOFT PO SCH (09:54)
[2018-04-04] MEDS: VIBRAMYCIN 100 MG in NS 100 ML IV + SPIKE MINIBAG* 100 ML IV SCH ×2 (10:22→21:01)
--- NOTE | 2018-04-04 13:55 | PCM.PROG ---
Progress Note - Progress Note for Day of Date of Exam: 04/04/18 - Subjective Subjective: 52 WM ER ADMISSION ON 04/03 WITH ASPIRATION PNEUMONIA. PT CURRENTLY ON IV DOXYCYLINE AND LEVAQUIN. PT WBC 7.6 HGB 10.5 THIS AM. FAMILY REPORTS PT CONTINUES WITH PRODUCTIVE COUGH,UNABLE TO PROVIDE SPUTUM AT THIS TIME. PT O2 SAT 96% ON ROOM AIR. CXR THIS AM WITH IMPROVING RIGHT SIDE PNEUMONIA. PLAN TO CONTINUE IV ATBX, RESP THERAPY, PULMONARY TOILETING, CONTINUE HOME MEDS. PT EVALUATION, CHOKING PRECAUTIONS - Past Medical Family Social History Past Med/Fam/Surg Hx: No changes since H&P Allergies: Allergies No Known Drug Allergies Allergy (Verified 04/22/17 23:29) - Review of Systems ROS: No change since H&P - Vital Signs and I&O's Vital Signs: Temperature 98.9 F Pulse Rate [Right] 122 Pulse Rate 105 Respiratory Rate 28 Blood Pressure [Left Arm] 117/68 Blood Pressure 140/68 O2 Sat by Pulse Oximetry 97 Intake and Output: Intake & Output 04/02/18 04/03/18 04/04/18 04/05/18 11:59 11:59 11:59 11:59 Intake Total 1741 / 1741 Balance 1741 / 1741 - Physical Exam Oriented: Person Eyes: Normal Ear: Normal Nose: Normal Throat: Normal Cardiovascular: Tachycardia. negative: Edema : Normal Auscultation: Bowel Sounds: Normal Tenderness: Normal Skin: Normal Musculoskeletal: Motor Deficit Mood Description: Calm Speech Pattern: Clear - Laboratory and Diagnostics Result Diagrams: 04/04/18 05:13 04/04/18 05:13 Labs: Laboratory WBC 7.6 X10^3/uL (3.6-10.0) 04/04/18 05:13 RBC 3.47 X10^6/uL (4.7-6.0) L 04/04/18 05:13 Hgb 10.5 g/dL (13.5-18.0) L D 04/04/18 05:13 Hct 30.3 % (42.0-54.0) L 04/04/18 05:13 MCV 87.4 fL (80.0-100.0) 04/04/18 05:13 MCH 30.2 pg (27.0-34.0) 04/04/18 05:13 MCHC 34.6 g/dL (33.0-35.0) 04/04/18 05:13 RDW 15.2 % (11.6-16.5) 04/04/18 05:13 Plt Count 135 X10^3/uL (150.0-450.0) L 04/04/18 05:13 MPV 9.6 fL (7.4-11.0) 04/04/18 05:13 Neut % (Auto) 79.9 % (42.0-75.0) H 04/04/18 05:13 Lymph % (Auto) 13.4 % (21.0-51.0) L 04/04/18 05:13 [place] % (Auto) 6.1 % (0.0-13.0) 04/04/18 05:13 Eos % (Auto) 0.3 % (0.9-2.9) L 04/04/18 05:13 Baso % (Auto) 0.3 % (0.2-1.0) 04/04/18 05:13 Neut # (Auto) 6.1 x10^3/uL (2.2-4.8) H 04/04/18 05:13 Lymph # (Auto) 1.0 X10^3/uL (1.3-2.9) L 04/04/18 05:13 [place] # (Auto) 0.5 x10^3/uL (0.3-0.8) 04/04/18 05:13 Eos # (Auto) 0.0 x10^3/uL (0.0-0.2) 04/04/18 05:13 Baso # (Auto) 0.0 X10^3/uL (0.0-0.1) 04/04/18 05:13 Absolute Nucleated RBC 0.0 /100WBC 04/04/18 05:13 Fibrinogen 315 mg/dL (239-489) 04/03/18 05:20 Sodium 141 mmol/L (136-145) 04/04/18 05:13 Corrected Sodium 141 mmol/L (136-145) 04/04/18 05:13 Potassium 4.1 mmol/L (3.5-5.1) 04/04/18 05:13 Chloride 107 mmol/L (98-107) 04/04/18 05:13 Carbon Dioxide 23.6 mmol/L (21-32) 04/04/18 05:13 BUN 16 mg/dL (7-18) 04/04/18 05:13 Creatinine 1.13 mg/dL (0.70-1.30) 04/04/18 05:13 Est GFR (MDRD) Af Amer > 60 (>60) 04/04/18 05:13 Est GFR (MDRD) Non-Af > 60 (>60) 04/04/18 05:13 Glucose 119 mg/dL (65-99) H 04/04/18 05:13 Lactic Acid 2.7 mmol/L (0.4-2.0) H 04/03/18 05:20 Calcium 7.7 mg/dL (8.5-10.1) L 04/04/18 05:13 Corrected Calcium 8.8 mg/dL (8.5-10.1) 04/04/18 05:13 Total Bilirubin 0.30 mg/dL (0.2-1.0) 04/04/18 05:13 AST 11 Units/L (15-37) L 04/04/18 05:13 ALT 16 Units/L (12-78) 04/04/18 05:13 Alkaline Phosphatase 49 Units/L (46-116) 04/04/18 05:13 Total Protein 5.6 g/dL (6.4-8.2) L 04/04/18 05:13 Albumin 2.6 g/dL (3.4-5.0) L 04/04/18 05:13 Globulin 3.0 g/dL (2.5-4.5) 04/04/18 05:13 Albumin/Globulin Ratio 0.9 Ratio (1.1-2.1) L 04/04/18 05:13 Specimen Type Clean catch urine 04/03/18 05:29 Urine Color Yellow (YELLOW) 04/03/18 05:29 Urine Appearance Clear (CLEAR) 04/03/18 05:29 Urine pH 5.0 (5.0 - 8.0) 04/03/18 05:29 Ur Specific [place] 1.010 (1.000-1.030) 04/03/18 05:29 Urine Protein Negative (NEGATIVE) 04/03/18 05:29 Urine Glucose (UA) Negative (NEGATIVE) 04/03/18 05:29 Urine Ketones Negative (NEGATIVE) 04/03/18 05:29 Urine Occult Blood Negative (NEGATIVE) 04/03/18 05:29 Urine Nitrite Negative (NEGATIVE) 04/03/18 05:29 Urine Bilirubin Negative (NEGATIVE) 04/03/18 05:29 Urine Urobilinogen Normal (NORMAL) 04/03/18 05:29 Ur Leukocyte Esterase 1+ (NEGATIVE) 04/03/18 05:29 Urine RBC None seen /HPF (NONE SEEN) 04/03/18 05:29 Urine WBC None seen /HPF (NONE SEEN) 04/03/18 05:29 Ur Squamous Epith Cells Rare /HPF (NEGATIVE) 04/03/18 05:29 Urine Bacteria Negative /HPF (NEGATIVE) 04/03/18 05:29 Ur Culture Indicated? No/not indicated 04/03/18 05:29 - Plan (1) Pneumonia Status: Acute Qualifiers: Pneumonia type: aspiration pneumonia Aspiration pneumonia type: due to gastric secretions Laterality: bilateral Lung location: lower lobe of lung Qualified Code(s): J69.0 - Pneumonitis due to inhalation of food and vomit Plan: PNEUMONIA PROTOCOL. IV ATBX, RESP THERAPY, SUPPLEMENTAL O2. CHOKING PRECAUTIONS BEDSIDE SUCTION. SPUTUM AND BLOOD CULTURES ORDERED ON ADMISSION. RECORDS FROM [facility] FROM 03/17 STAY (2) Choking episode Status: Acute (3) GERD (gastroesophageal reflux disease) Status: Chronic Qualifiers: Esophagitis presence: esophagitis presence not specified Qualified Code(s): K21.9 - Gastro-esophageal reflux disease without esophagitis (4) History of traumatic brain injury Status: Chronic (5) Hypertension Status: Chronic (6) Chronic kidney disease (CKD) Status: Acute
[2018-04-04] MEDS: ARICEPT TAB 10 MG PO SCH (20:59)
[2018-04-04] MEDS: LIPITOR TAB 20 MG PO SCH (21:00)
[2018-04-04] MEDS: DESYREL PO PRN (21:03)
[2018-04-05] MEDS: DUONEB 0.5 MG/3 MG NEB SCH ×6 (00:05→20:16)
[2018-04-05] MEDS ORDERED: NS 1000 ML 1,000 ML ONE (02:25)
[2018-04-05] MEDS: XANAX PO PRN (02:39)
[2018-04-05 06:55] LABS: BASOPHILS % (AUTO) 0.5 % (0.2-1.0); EOSINOPHILS # (AUTO) 0.1 x10^3/uL (0.0-0.2); HEMOGLOBIN 10.8 g/dL (13.5-18.0); LYMPHOCYTES # (AUTO) 0.9 X10^3/uL (1.3-2.9); LYMPHOCYTES % (AUTO) 15.4 % (21.0-51.0); MEAN CORPUSCULAR HEMOGLOBIN 30.4 pg (27.0-34.0); MEAN CORPUSCULAR HGB CONC 34.9 g/dL (33.0-35.0); MEAN CORPUSCULAR VOLUME 87.1 fL (80.0-100.0); MEAN PLATELET VOLUME 9.5 fL (7.4-11.0); MONOCYTES # (AUTO) 0.5 x10^3/uL (0.3-0.8); MONOCYTES % (AUTO) 8.5 % (0.0-13.0); NEUTROPHILS # (AUTO) 4.2 x10^3/uL (2.2-4.8); NEUTROPHILS % (AUTO) 74.6 % (42.0-75.0); PLATELET COUNT 144 X10^3/uL (150.0-450.0); RED BLOOD COUNT 3.57 X10^6/uL (4.7-6.0); RED CELL DISTRIBUTION WIDTH 15.8 % (11.6-16.5); WHITE BLOOD COUNT 5.7 X10^3/uL (3.6-10.0)
[2018-04-05 07:06] LABS: ALANINE AMINOTRANSFERASE 16 Units/L (12-78); ALBUMIN 2.7 g/dL (3.4-5.0); ALKALINE PHOSPHATASE 60 Units/L (46-116); BLOOD UREA NITROGEN 10 mg/dL (7-18); CALCIUM 7.7 mg/dL (8.5-10.1); CARBON DIOXIDE 20.8 mmol/L (21-32); CHLORIDE 108 mmol/L (98-107); COR CA(FOR HYPOALB) 8.7 mg/dL (8.5-10.1); COR NA(FOR HYPERGLY) 142 mmol/L (136-145); CREATININE 0.87 mg/dL (0.70-1.30); SODIUM 142 mmol/L (136-145); TOTAL PROTEIN 5.5 g/dL (6.4-8.2); eGFR NON BLACK RACES > 60 (>60)
[2018-04-05 07:11] LABS: ASPARTATE AMINO TRANSFERASE 16 Units/L (15-37)
--- NOTE | 2018-04-05 08:28 | RAD ---
Examination: Portable AP chest History: Follow-up pneumonia Comparison 04/04/2018 Findings: Continued and stable normal heart size. Improved aeration of the right base with decreasin g infiltrates. Stable linear fibrosis left costophrenic angle. Impression: Further improvement in appearance of the right lower lung. No new abnormality demonstrate d. Reported By:
[2018-04-05] MEDS ORDERED: GLUCOPHAGE ONE ×2 (09:15→20:38)
[2018-04-05] MEDS ORDERED: DEPAKOTE D.R. TAB PO ONE ×2 (09:18→20:38)
[2018-04-05] MEDS: VIBRAMYCIN 100 MG in NS 100 ML IV + SPIKE MINIBAG* 100 ML IV SCH ×2 (09:23→21:50)
[2018-04-05] MEDS: LEVAQUIN PREMIX IV 750 MG 750 MG/150 ML BAG IV SCH (09:23)
[2018-04-05] MEDS: PROTONIX TAB 40 MG PO SCH (09:24)
[2018-04-05] MEDS: ZOLOFT PO SCH (09:24)
[2018-04-05] MEDS: ROBITUSSIN DM PO SCH ×4 (09:24→21:34)
[2018-04-05] MEDS: ASPIRIN EC 81 MG PO SCH (09:24)
[2018-04-05] MEDS: GLUCOPHAGE PO SCH ×2 (09:24→21:21)
[2018-04-05] MEDS: NORVASC TAB 10 MG PO SCH (09:24)
[2018-04-05] MEDS: DEPAKOTE D.R. TAB PO SCH ×2 (09:24→21:21)
[2018-04-05] MEDS: METHYLPHENIDATE HCL 10 MG PO SCH ×2 (09:25→12:33)
[2018-04-05] MEDS: LIPITOR TAB 20 MG PO SCH (21:20)
[2018-04-05] MEDS: ARICEPT TAB 10 MG PO SCH (21:21)
[2018-04-05] MEDS: DESYREL PO PRN (21:23)
--- NOTE | 2018-04-06 05:56 | RAD ---
Chest, one view Indication: Pneumonia Comparison: 04/05/2018 Findings: Cardiac silhouette is stable. There is stable linear scarring versus atelectasis of the lef t lung base. There is continued improvement in the right lung base opacities. No significant pleural effusion or pneumothorax. Impression: Continued improvement in the right basilar opacities. No new abnormality. Reported By:
[2018-04-06 06:21] LABS: BASOPHILS % (AUTO) 0.5 % (0.2-1.0); EOSINOPHILS # (AUTO) 0.1 x10^3/uL (0.0-0.2); EOSINOPHILS % (AUTO) 1.9 % (0.9-2.9); HEMATOCRIT 34.3 % (42.0-54.0); HEMOGLOBIN 11.6 g/dL (13.5-18.0); LYMPHOCYTES # (AUTO) 1.1 X10^3/uL (1.3-2.9); LYMPHOCYTES % (AUTO) 25.4 % (21.0-51.0); MEAN CORPUSCULAR HEMOGLOBIN 29.8 pg (27.0-34.0); MEAN CORPUSCULAR HGB CONC 33.9 g/dL (33.0-35.0); MEAN CORPUSCULAR VOLUME 88.1 fL (80.0-100.0); MEAN PLATELET VOLUME 9.6 fL (7.4-11.0); MONOCYTES # (AUTO) 0.4 x10^3/uL (0.3-0.8); NEUTROPHILS # (AUTO) 2.7 x10^3/uL (2.2-4.8); NEUTROPHILS % (AUTO) 62.2 % (42.0-75.0); PLATELET COUNT 135 X10^3/uL (150.0-450.0); RED CELL DISTRIBUTION WIDTH 15.9 % (11.6-16.5); WHITE BLOOD COUNT 4.3 X10^3/uL (3.6-10.0)
[2018-04-06 06:38] LABS: ALANINE AMINOTRANSFERASE 13 Units/L (12-78); ALBUMIN 2.8 g/dL (3.4-5.0); ALKALINE PHOSPHATASE 66 Units/L (46-116); ASPARTATE AMINO TRANSFERASE 6 Units/L (15-37); BLOOD UREA NITROGEN 12 mg/dL (7-18); CALCIUM 8.4 mg/dL (8.5-10.1); CARBON DIOXIDE 25.3 mmol/L (21-32); CHLORIDE 107 mmol/L (98-107); COR CA(FOR HYPOALB) 9.4 mg/dL (8.5-10.1); COR NA(FOR HYPERGLY) 142 mmol/L (136-145); CREATININE 1.13 mg/dL (0.70-1.30); SODIUM 142 mmol/L (136-145); TOTAL PROTEIN 6.3 g/dL (6.4-8.2); eGFR NON BLACK RACES > 60 (>60)
[2018-04-06] MEDS ORDERED: AMANTADINE HCL 100 MG CAP PO SCH ×2 (08:00→12:00)
[2018-04-06] MEDS ORDERED: DEPAKOTE D.R. TAB PO ONE (08:31)
[2018-04-06] MEDS ORDERED: GLUCOPHAGE ONE (08:31)
[2018-04-06] MEDS: DUONEB 0.5 MG/3 MG NEB SCH ×2 (08:51→12:05)
[2018-04-06] MEDS: ASPIRIN EC 81 MG PO SCH (09:17)
[2018-04-06] MEDS: METHYLPHENIDATE HCL 10 MG PO SCH ×2 (09:17→12:01)
[2018-04-06] MEDS: ROBITUSSIN DM PO SCH ×2 (09:18→12:01)
[2018-04-06] MEDS: DEPAKOTE D.R. TAB PO SCH (09:18)
[2018-04-06] MEDS: LEVAQUIN PREMIX IV 750 MG 750 MG/150 ML BAG IV SCH (09:18)
[2018-04-06] MEDS: NORVASC TAB 10 MG PO SCH (09:18)
[2018-04-06] MEDS: PROTONIX TAB 40 MG PO SCH (09:18)
[2018-04-06] MEDS: GLUCOPHAGE PO SCH (09:18)
[2018-04-06] MEDS: ZOLOFT PO SCH (09:19)
[2018-04-06] MEDS: VIBRAMYCIN 100 MG in NS 100 ML IV + SPIKE MINIBAG* 100 ML IV SCH (09:19)
[2018-04-06 12:22] VITALS: BP 141/82
--- NOTE | 2018-05-21 00:37 | DR.CARTERD ---
- Discharge Summary for: Discharge Summary for Date of:: 04/06/18 - Admission Date Date of Admission: 04/03/18 - Admission Diagnoses Admission Diagnosis: (1) Pneumonia (2) Choking episode (3) GERD (gastroesophageal reflux disease) (4) History of traumatic brain injury (5) Hypertension (6) Chronic kidney disease (CKD) - Discharge Date Discharge Date: 04/06/18 - Discharge Diagnoses Discharge Diagnosis: (1) Pneumonia (2) Choking episode (3) GERD (gastroesophageal reflux disease) (4) History of traumatic brain injury (5) Hypertension (6) Chronic kidney disease (CKD) - Hospital Course Hospital Course: DAY ONE, 52 WM ER ADMISSION AFTER PRESENTING WITH CO ASPIRATION, PT HAS HX OF TRAUMATIC BRAIN INJURY AND SINCE THEN REPEATED ASPIRATION PNEUMONIA. PT HAD CXR IN ER WITH MULTI FOCAL PNEUMONIA. PT RECENTLY IN [place] IN [facility] WITH PNEUMONIA WORKUP, WAS ON AUGMENT AT HOME PRIOR TO THIS EPISODES. PT HAD SWALLOW STUDY AT [place] DURING THAT STAY, 03/17. PT ADMITTED TO ICU FOR TREATMENT OF ACUTE ASPIRATION PNEUMONIA, IV ATBX THERAPY, SPUTUM AND BLOOD CUTLURES ORDERED, IV HYDRATION. WE CONTINUED TO MONITOR PATIENT. DAY TWO, PT WAS CURRENTLY ON IV DOXYCYLINE AND LEVAQUIN. PT WBC 7.6 HGB 10.5 THIS AM. FAMILY REPORTED PT CONTINUES WITH PRODUCTIVE COUGH,UNABLE TO PROVIDE SPUTUM AT THIS TIME. PT O2 SAT 96% ON ROOM AIR. CXR THIS AM WITH IMPROVING RIGHT SIDE PNEUMONIA. PLANNED TO CONTINUE IV ATBX, RESP THERAPY, PULMONARY TOILETING, CONTINUED HOME MEDS. PT EVALUATION, CHOKING PRECAUTIONS. WE CONTINUED TO MONITOR PATIENT. DAY FOUR, PATIENT'S SYMPTOMS IMPROVED. WBC BACK TO NORMAL LEVELS AT 4.3. BLOOD CULTURES TIMES 2 SHOWED NO GROWTH. VITALS ARE STABLE AND LAB VALUES ARE WITHIN NORMAL LIMITS FOR PATIENT. WE PLANNED FOR DISCHARGE. INSTRUCTIONS WERE DISCUSSED WITH PATIENT AND FAMILY, BOTH VOICED UNDERSTANDING. PATIENT DISCHARGED HOME IN STABLE CONDITION WITH FAMILY. - Discharge Medications Discharge Medications: Home Medication List alprazolam [Xanax] 1 mg PO HS PRN 04/03/18 [History] aspirin [Aspirin Low Dose] 81 mg PO DAILY 04/03/18 [History] divalproex [Depakote] 500 mg PO BID 04/03/18 [History] metformin [Glucophage] 500 mg PO BID 04/03/18 [History] amantadine HCl 100 mg PO TID #90 cap 04/06/18 [Rx] ipratropium-albuterol 1 ea NEB TID #50 units 04/06/18 [Rx] levofloxacin [Levaquin] 750 mg PO QDAY #10 tab 04/06/18 [Rx] Prescriptions: amantadine HCl Christiano Gardner ipratropium-albuterol Christiano Gardner levofloxacin [Levaquin] Christiano Gardner Ambulatory Orders amantadine HCl 100 mg PO 0800,1200 01/18/16 amlodipine 10 mg PO DAILY 01/18/16 donepezil 10 mg PO HS 01/18/16 methylphenidate HCl [Ritalin LA] 10 mg PO 0800,1200 01/18/16 pantoprazole 40 mg PO DAILY 01/18/16 sertraline 50 mg PO DAILY 01/18/16 trazodone 100 mg PO HS 01/18/16 atorvastatin 20 mg PO HS #30 tab 01/21/16 melatonin 5 mg PO HS 04/22/17 - Discharge Disposition Discharge Disposition: PATIENT TO FOLLOW UP WITH PCP Eileen CHO IN ONE WEEK.
== END 2018-04-06 13:46 | disposition home or self-care (01) | DRG 179 ==
LOC: ER 04:56 → ICU 07:30
PROVIDERS: ADMIT Internal Medicine; ATTEND Internal Medicine
DX: R09.89 Other specified symptoms and signs involving the circulatory and respiratory systems; J69.0 Pneumonitis due to inhalation of food and vomit; E11.65 Type 2 diabetes mellitus with hyperglycemia; K21.9 Gastro-esophageal reflux disease without esophagitis; R94.31 Abnormal electrocardiogram [ECG] [EKG]; Z87.820 Personal history of traumatic brain injury; N18.9 Chronic kidney disease, unspecified; I10 Essential (primary) hypertension; E78.2 Mixed hyperlipidemia; F41.8 Other specified anxiety disorders
CPT/HCPCS: 36415; 70450; 71010; 71045; 80053; 81001; 83605; 85025; 85384; 87040; 90686; 93005; 93010; 94640; 94669; 96365; 96367; 96374; 96375; 99284; 99285; A4222; G9017; J0131; J1885; J1956; J3490; J7030; J7050; J7620

== ENCOUNTER 2019-03-20 04:46 | Inpatient (IN) ==
--- NOTE | 2019-03-20 05:31 | DR.GENAD ---
HPI - PCP Primary Care Physician: - Complaint/Symptoms Chief Complaint Doctors Comments: 53 y/o with a brain injury brought in by after he started acting erratic and making little sense overnight; he is usually able to communicate but started being unable to speak intelligibly tonight; he's had n/v/d for the past two days and has a h/o aspiration pneumonia so she brought him in for evaluation; his speech is not understandable and he reaches for each time she attempts to walk away. Chief Complaint:: PT STARTED HAVING CHILLS AND COUGHING. - Source History Provided: Family Member - Mode of Arrival Mode of Arrival: Wheelchair - Timing Onset of Chief Complaint: 03/20/19 PMH - PMH Past Medical History: Yes Past Medical History: Diabetes, Hypertension Past Medical History Comment: BRAIN INJURY Past Surgical History: Yes Surgical History: Ortho Surgery Past Surgical History Comment: BACK, KNEE AND BRAIN SURGERY. - Family History History of Family Medical Conditions: No Family Medical History: Diabetes Mellitus, Hypertension - Social History Does patient currently use any type of tobacco product: No Have you used tobacco products in the last 12 months: No Type of Tobacco Use: None Does any household member use tobacco: No Alcohol Use: None Do you use any recreational Drugs:: No Lives With: Family - infectious screening In the last 2 months have you had wt loss of >10#?: NO Have you had fever, night sweats or hemotysis?: No Have you traveled outside the country in the last 6 months?: No Isolation: Standard ROS - Review of Systems Constitutional: Malaise (per ) Respiratoy: Productive Cough Cardiovascular: No Symptoms Reported Gastrointestinal/Abdominal: See HPI, Nausea, Vomiting Neurological: Speech Problem (usually understandable per ) Unable to Obtain Due To: Altered mental status PE - General Limitations: Altered Mental Status General Appearance: Alert, In No Apparent Distress - Head Head Exam: Normal Inspection - Eyes Eye exam: Normal Appearance, PERRL - ENT ENT Exam: Normal Exam TM/Canal Exam: Right Normal Nose Exam: Normal Nose Exam - Neck Neck Exam: Normal Inspection - Chest Chest Inspection: Normal Inspection, Symmetric Chest Wall Rise - Respiratory Respiratory Exam: Normal Lung Sounds Bilat, Accessory Muscle Use, Chest Wall Tenderness Respiratory Exam: Bilateral Clear to Auscultation - Cardiovascular Cardiovascular Exam: Regular Rate, Normal Rhythm - Abdominal Exam Abdominal Exam: Normal Inspection, Normal Bowel Sounds, Soft - Extremities Extremities Exam: Normal Inspection - Back Back Exam: Normal Inspection - Neurologic Neurological Exam: Alert - Psychiatric Psychiatric Exam: Normal Affect - Skin Skin Exam: Warm, Dry - Vital Signs Vitals: Temperature 100.0 F Pulse Rate 133 Respiratory Rate 24 Blood Pressure [Left Arm] 124/72 Blood Pressure 124/72 O2 Sat by Pulse Oximetry 95 Course - Reevaluation 1st: Unchanged - Education/Counseling Education/Counseling: Family Educated On: Treatment, Diagnosis ROR - Labs Reviewed Result Diagrams: 03/20/19 05:20 03/20/19 05:20 - Other Results Comments: CT BRAIN Impression: No interval change, no acute intracranial disease. 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 PCXR: Findings: There is right upper lobe and lower lung infiltrate. The left lung is. grossly clear. The cardiac silhouette is stable with unchanged tortuosity of the. thoracic aorta. No significant pleural effusion or pneumothorax. Impression: Multifocal right lung pneumonia. Recommend radiographic follow-up to. resolution. - XRAY XRAY Interpreted by: Radiologist - Labs Reviewed Laboratory: WBC 4.0 X10^3/uL (3.6-10.0) 03/20/19 05:20 RBC 4.58 X10^6/uL (4.7-6.0) L 03/20/19 05:20 Hgb 13.8 g/dL (13.5-18.0) 03/20/19 05:20 Hct 40.4 % (42.0-54.0) L 03/20/19 05:20 MCV 88.2 fL (80.0-100.0) 03/20/19 05:20 MCH 30.2 pg (27.0-34.0) 03/20/19 05:20 MCHC 34.3 g/dL (33.0-35.0) 03/20/19 05:20 RDW 14.2 % (11.6-16.5) 03/20/19 05:20 Plt Count 120 X10^3/uL (150.0-450.0) L 03/20/19 05:20 MPV 9.6 fL (7.4-11.0) 03/20/19 05:20 Neut % (Auto) 81.2 % (42.0-75.0) H 03/20/19 05:20 Lymph % (Auto) 11.8 % (21.0-51.0) L 03/20/19 05:20 [place] % (Auto) 5.9 % (0.0-13.0) 03/20/19 05:20 Eos % (Auto) 0.8 % (0.9-2.9) L 03/20/19 05:20 Baso % (Auto) 0.3 % (0.2-1.0) 03/20/19 05:20 Neut # (Auto) 3.2 x10^3/uL (2.2-4.8) 03/20/19 05:20 Lymph # (Auto) 0.5 X10^3/uL (1.3-2.9) L 03/20/19 05:20 [place] # (Auto) 0.2 x10^3/uL (0.3-0.8) L 03/20/19 05:20 Eos # (Auto) 0.0 x10^3/uL (0.0-0.2) 03/20/19 05:20 Baso # (Auto) 0.0 X10^3/uL (0.0-0.1) 03/20/19 05:20 Absolute Nucleated RBC 0.1 /100WBC 03/20/19 05:20 Sodium 136 mmol/L (136-145) 03/20/19 05:20 Corrected Sodium 137 mmol/L (136-145) 03/20/19 05:20 Potassium 4.8 mmol/L (3.5-5.1) 03/20/19 05:20 Chloride 102 mmol/L (98-107) 03/20/19 05:20 Carbon Dioxide 25.2 mmol/L (21-32) 03/20/19 05:20 BUN 23 mg/dL (7-18) H 03/20/19 05:20 Creatinine 1.49 mg/dL (0.70-1.30) H 03/20/19 05:20 Est GFR (MDRD) Af Amer > 60 (>60) 03/20/19 05:20 Est GFR (MDRD) Non-Af 52 (>60) L 03/20/19 05:20 Glucose 156 mg/dL (65-99) H 03/20/19 05:20 Calcium 8.7 mg/dL (8.5-10.1) 03/20/19 05:20 Corrected Calcium TNP 03/20/19 05:20 Total Bilirubin 0.50 mg/dL (0.2-1.0) 03/20/19 05:20 AST 10 Units/L (15-37) L 03/20/19 05:20 ALT 14 Units/L (12-78) 03/20/19 05:20 Alkaline Phosphatase 78 Units/L (46-116) 03/20/19 05:20 Creatine Kinase 47 Units/L (39-308) 03/20/19 05:20 CK-MB (CK-2) < 1.0 ng/mL (0-4.0) 03/20/19 05:20 CK/CKMB % Calc 2.1 % (<4) 03/20/19 05:20 Troponin I < 0.02 ng/mL (0-1.5) 03/20/19 05:20 Total Protein 7.1 g/dL (6.4-8.2) 03/20/19 05:20 Albumin 3.6 g/dL (3.4-5.0) 03/20/19 05:20 Globulin 3.5 g/dL (2.5-4.5) 03/20/19 05:20 Albumin/Globulin Ratio 1.0 Ratio (1.1-2.1) L 03/20/19 05:20 Opioid - Opioid Risk Tool Total: 0 Total Score Risk Category: Low Risk - Diagnosis Discharge Problem: Tachycardia with heart rate 141-160 beats per minute, Dehydration, History of traumatic brain injury, Renal dysfunction Pneumonia involving right lung Qualifiers: Pneumonia type: aspiration pneumonia Aspiration pneumonia type: due to vomit Lung location: upper lobe of lung Qualified Code(s): J69.0 - Pneumonitis due to inhalation of food and vomit Altered mental status Qualifiers: Altered mental status type: coma Coma depth: Tanner coma 13-15 Coma timing: at arrival to emergency department Qualified Code(s): R40.2412 - Abrams coma scale score 13-15, at arrival to emergency department - Discharge Plan Disposition: ADMITTED INPATIENT Condition: Stable
[2019-03-20 05:33] LABS: BASOPHILS % (AUTO) 0.3 % (0.2-1.0); EOSINOPHILS % (AUTO) 0.8 % (0.9-2.9); HEMATOCRIT 40.4 % (42.0-54.0); HEMOGLOBIN 13.8 g/dL (13.5-18.0); LYMPHOCYTES # (AUTO) 0.5 X10^3/uL (1.3-2.9); LYMPHOCYTES % (AUTO) 11.8 % (21.0-51.0); MEAN CORPUSCULAR HEMOGLOBIN 30.2 pg (27.0-34.0); MEAN CORPUSCULAR HGB CONC 34.3 g/dL (33.0-35.0); MEAN CORPUSCULAR VOLUME 88.2 fL (80.0-100.0); MEAN PLATELET VOLUME 9.6 fL (7.4-11.0); MONOCYTES # (AUTO) 0.2 x10^3/uL (0.3-0.8); MONOCYTES % (AUTO) 5.9 % (0.0-13.0); NEUTROPHILS # (AUTO) 3.2 x10^3/uL (2.2-4.8); NEUTROPHILS % (AUTO) 81.2 % (42.0-75.0); PLATELET COUNT 120 X10^3/uL (150.0-450.0); RED BLOOD COUNT 4.58 X10^6/uL (4.7-6.0); RED CELL DISTRIBUTION WIDTH 14.2 % (11.6-16.5)
--- NOTE | 2019-03-20 05:36 | RAD ---
Chest, 1 view Indication: Cough Comparison: 04/06/2018 Findings: There is right upper lobe and lower lung infiltrate. The left lung is grossly clear. The cardiac silhouette is stable with unchanged tortuosity of the thoracic aorta. No significant pleural effusion or pneumothorax. Impression: Multifocal right lung pneumonia. Recommend radiographic follow-up to resolution. Reported By:
[2019-03-20 05:45] LABS: ALANINE AMINOTRANSFERASE 14 Units/L (12-78); ALBUMIN 3.6 g/dL (3.4-5.0); ALKALINE PHOSPHATASE 78 Units/L (46-116); ASPARTATE AMINO TRANSFERASE 10 Units/L (15-37); BLOOD UREA NITROGEN 23 mg/dL (7-18); CALCIUM 8.7 mg/dL (8.5-10.1); CARBON DIOXIDE 25.2 mmol/L (21-32); CHLORIDE 102 mmol/L (98-107); COR NA(FOR HYPERGLY) 137 mmol/L (136-145); CREATININE 1.49 mg/dL (0.70-1.30); SODIUM 136 mmol/L (136-145); TOTAL PROTEIN 7.1 g/dL (6.4-8.2); eGFR NON BLACK RACES 52 (>60)
[2019-03-20] MEDS: NS 1000 ML 1,000 ML IV SCH ×4 (05:50→23:08)
[2019-03-20] MEDS ORDERED: ZOSYN VIAL 3.375 GRAMS 3.375 G in NS 100 ML IV + SPIKE MINIBAG* 100 ML IV ONE (05:56)
--- NOTE | 2019-03-20 05:58 | CT ---
History: Confusion Study: CT head without contrast. Sagittal and coronal reformations were provided. Comparison: July 30, 2018 Findings: The ventricles and sulci are enlarged as before. There is encephalomalacia in the left frontal lobe and left anterior temporal lobe and also in the right posterior temporal lobe. There is old right craniotomy. There is no intracranial hemorrhage or mass and there is no subdural collection of fluid. There is moderate periventricular white matter patchy low attenuation. The paranasal sinuses are clear. There is an empty sella. There is prominent atherosclerotic calcification in the carotid siphons. Impression: No interval change, no acute intracranial disease. 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
[2019-03-20] MEDS ORDERED: ZOSYN VIAL 3.375 GRAMS IV ONE (06:08)
[2019-03-20] MEDS ORDERED: NS 100 ML IV + SPIKE MINIBAG* 100 ML IV ONE (06:08)
[2019-03-20 06:12] LABS: CKMB % 2.1 % (<4); CREATINE KINASE 47 Units/L (39-308); CREATINE KINASE MB < 1.0 ng/mL (0-4.0); TROPONIN I < 0.02 ng/mL (0-1.5)
[2019-03-20] MEDS ORDERED: HumuLIN R SUBCUT PRN (07:21)
[2019-03-20] MEDS ORDERED: NS 1000 ML 1,000 ML IV SCH (08:00)
[2019-03-20] MEDS: ZOSYN VIAL 3.375 GRAMS 3.375 G in NS 100 ML IV + SPIKE MINIBAG* 100 ML IV SCH ×3 (08:49→22:00)
[2019-03-20 08:50] LABS: ABG BASE EXCESS 0.3 mmol/L (-2.0-2.0); ABG HCO3 25.4 mmol/L (22-26)
[2019-03-20 08:51] LABS: ABG ALLEN TEST POS
[2019-03-20] MEDS ORDERED: PULMICORT NEB TX 0.5 MG NEB ONE (08:53)
[2019-03-20] MEDS: PULMICORT NEB TX 0.5 MG NEB SCH ×2 (09:05→20:40)
[2019-03-20] MEDS: DUONEB 0.5 MG/3 MG NEB SCH ×4 (09:05→20:40)
[2019-03-20] MEDS: ROBITUSSIN DM PO SCH ×4 (09:31→20:46)
[2019-03-20] MEDS: LEVAQUIN PREMIX IV 500 MG 500 MG/100 ML BAG IV SCH (10:02)
--- NOTE | 2019-03-20 13:49 | DR.H&P ---
H&P - History & Physical for Day of: H&P Date: 03/20/19 - Chief Complaint Chief Complaint: "ASPIRATION" PER SPOUSE/CAREGIVER. FEVER, CHILLS, CHEST CONGESTION AND SOB - History of Present Illness History of Present Illness: PT IS 53 WM ER ADMISSION AFTER PRESENTING WITH CO INCREASED CHEST CONGESTION AND FEVER. PT SPOUSE STATES HE CHOKED WHILE EATING ON SATURDAY, FOLLOWED BY SEVERE VOMITING. PT STARTED WITH INCREASED CHEST CONGESTION AND FEVER ON SATURDAY. PT HAS HX OF TRAUMATIC BRAIN INJURY AND IS A TOTAL CARE PT WITH HX OF ASPIRATION PNEUMONIA. PT HAD BEEN STARTED ON [place] SATURDAY DUE TO UPPER RESP SYMPTOMS, SINUS INFECTION. PT WAS AFEBRILE AT THAT TIME. ER XRAY REVEALED MULTI FOCAL PNEUMONIA. - Past Medical History Past Medical History: Diabetes, Hypertension Additional Medical History: Traumatic Brain Injury 2014, Muscle Weakness, Chronic Back Pain, Left sided weakness, Chronic Neck Pain, Chronic Knee Pain, ADD - Past Surgical History Surgical History: Ortho Surgery Additional Surgical History: Left knee surgery, Back surgery, Hernia Repair, prior tracheostomy and peg tube with brain injury - Family History Family Medical History: Diabetes Mellitus, Hypertension - Social History Does patient currently use any type of tobacco product: No Have you used tobacco products in the last 12 months: No Type of Tobacco Use: None Does any household member use tobacco: No Alcohol Use: None - Medications Home Medications: No Known Drug Allergies Allergy (Verified 07/30/18 15:35) CONTINUE taking the following medications donepezil [Aricept] 10 mg PO HS 03/20/19 [History] levofloxacin 500 mg PO DAILY 03/20/19 [History] - Review of Systems Constitutional: Fever, Chills, Weakness Eyes: No Symptoms Reported ENT: Nose Congestion Respiratory: Cough, Shortness of Breath, Sputum, Wheezing Cardiovascular: No Symptoms Reported Gastrointestinal: Nausea, Vomiting, Abdominal Pain Genitourinary: No Symptoms Reported Musculoskeletal: No Symptoms Reported Skin: No Symptoms Reported Neurological: Weakness, Incoordination, Seizures - Physical Exam Vital Signs: Temperature 98.7 F Pulse Rate [Right Brachial] 107 Pulse Rate 107 Respiratory Rate 20 Blood Pressure [Right Arm] 105/69 Blood Pressure [Left Arm] 124/72 Blood Pressure 125/72 O2 Sat by Pulse Oximetry 91 Oriented: Person Eyes: Normal Ear: Normal Nose: Normal Throat: Exudate, Dry Respiratory: Rhonchi Throughout, RLL Diminished, LLL Diminished Cardiovascular: Murmur : Normal Auscultation: Bowel Sounds: Normal Tenderness: Diffuse, Mild Skin: Decreased Turgur Musculoskeletal: Right, Left, Arm, Leg, Motor Deficit Psychiatric: Anxiety Speech Pattern: Unclear, Delayed - Assessment/Plan (1) Pneumonia involving right lung Qualifiers: Pneumonia type: aspiration pneumonia Aspiration pneumonia type: due to vomit Lung location: upper lobe of lung Qualified Code(s): J69.0 - Pneumonitis due to inhalation of food and vomit Status: Acute Plan: ADMIT, PNEUMONIA PROTOCOL, IV ATBX THERAPY, GENTLE IV HYDRATION. BLOOD AND SPUTUM CULTURES ON ADMISSION. ASPIRATION PRECAUTIONS, RESP CONSULT. ABG, SUPPLEMENTAL O2. SERIZURE PRECAUTIONS, BEDSIDE SUCTION. VERIFY HOME MEDICATION, BS CONTROL, BP CONTROL (2) Dehydration Status: Acute (3) History of traumatic brain injury Status: Chronic (4) Seizure Status: Acute (5) GERD (gastroesophageal reflux disease) Qualifiers: Esophagitis presence: esophagitis presence not specified Qualified Code(s): K21.9 - Gastro-esophageal reflux disease without esophagitis Status: Chronic - Allergies Allergies/Adverse Reactions: Allergies Allergy/AdvReac Type Severity Reaction Status Date / Time No Known Drug Allergies Allergy Verified 07/30/18 15:35
[2019-03-20 14:28] LABS: BILIRUBIN,URINE NEGATIVE (NEGATIVE); BLOOD/HEMOGLOBIN,URINE NEGATIVE (NEGATIVE); GLUCOSE, URINE NEGATIVE (NEGATIVE); KETONES,URINE NEGATIVE (NEGATIVE); LEUKOCYTE ESTERASE ,URINE NEGATIVE (NEGATIVE); NITRITES,URINE NEGATIVE (NEGATIVE); PROTEIN,URINE NEGATIVE (NEGATIVE); UROBILINOGEN,URINE NORMAL (NORMAL)
[2019-03-20 14:47] LABS: APPEARANCE,URINE CLEAR (CLEAR); COLOR,URINE YELLOW (YELLOW)
--- NOTE | 2019-03-20 16:33 | RAD ---
HISTORY: Abdominal Pain Study: Frontal view of the chest, flat and upright views of the abdomen Comparison: None. Findings: Cardiomediastinal silhouette is increased in size. No focal consolidations, pleural effusions or pneumothorax. Osseous structures are without acute abnormality. Flat and upright views of the abdomen demonstrates a normal bowel gas pattern. No free air. No abnormal calcifications or abnormal soft tissue shadows. No acute bony abnormalities. IMPRESSION: 1. No acute cardiopulmonary disease. 2. No evidence for acute abdominal pathology. Reported By:
[2019-03-20 17:47] VITALS: BMI 27.5
[2019-03-20] MEDS ORDERED: DEPAKOTE D.R. TAB PO ONE (20:39)
[2019-03-20] MEDS: DESYREL PO SCH (20:47)
[2019-03-20] MEDS: LIPITOR TAB 20 MG PO SCH (20:47)
[2019-03-20] MEDS: ARICEPT TAB 10 MG PO SCH (20:47)
[2019-03-20] MEDS: DEPAKOTE D.R. TAB PO SCH (20:48)
[2019-03-20] MEDS: XANAX PO PRN (20:56)
[2019-03-20] MEDS ORDERED: PATIENT'S HOME MEDICATION (Melatonin 5 MG) PO SCH (21:00)
[2019-03-20] MEDS: SNACK - Diabetic Appropriate PO SCH (21:45)
[2019-03-21] MEDS: DUONEB 0.5 MG/3 MG NEB SCH ×6 (00:25→20:28)
[2019-03-21] MEDS: NS 1000 ML 1,000 ML IV SCH ×4 (05:46→18:30)
[2019-03-21] MEDS: ZOSYN VIAL 3.375 GRAMS 3.375 G in NS 100 ML IV + SPIKE MINIBAG* 100 ML IV SCH (06:21)
--- NOTE | 2019-03-21 06:39 | RAD ---
Examination: AP chest History: Pneumonia Comparison 03/20/2019 Findings: There is no change in cardiac size or configuration. The left lung remains essentially clear. There are persistent infiltrates in the right lung, slightly improved. There is an unusual configuration to the left superior mediastinum. The aortic knob is not well defined and appears to extend superiorly. Impression: 1. Persistent but improving infiltrates right lung consistent with pneumonia. 2. Unusual configuration aortic knob and left superior mediastinum. This appearance is nonacute and has been present on multiple previous chest radiographs. It may represent a vascular anomaly of the aortic arch and brachiocephalic vessel origins. Other mass effect is not excluded. Reported By:
[2019-03-21 06:59] LABS: BASOPHILS % (AUTO) 0.3 % (0.2-1.0); EOSINOPHILS % (AUTO) 0.3 % (0.9-2.9); HEMATOCRIT 32.5 % (42.0-54.0); LYMPHOCYTES # (AUTO) 0.8 X10^3/uL (1.3-2.9); LYMPHOCYTES % (AUTO) 14.6 % (21.0-51.0); MEAN CORPUSCULAR HEMOGLOBIN 30.5 pg (27.0-34.0); MEAN CORPUSCULAR HGB CONC 34.6 g/dL (33.0-35.0); MEAN CORPUSCULAR VOLUME 88.1 fL (80.0-100.0); MEAN PLATELET VOLUME 9.9 fL (7.4-11.0); MONOCYTES # (AUTO) 0.7 x10^3/uL (0.3-0.8); MONOCYTES % (AUTO) 12.8 % (0.0-13.0); NEUTROPHILS # (AUTO) 3.8 x10^3/uL (2.2-4.8); PLATELET COUNT 75 X10^3/uL (150.0-450.0); RED BLOOD COUNT 3.69 X10^6/uL (4.7-6.0); RED CELL DISTRIBUTION WIDTH 14.3 % (11.6-16.5); WHITE BLOOD COUNT 5.3 X10^3/uL (3.6-10.0)
[2019-03-21 07:11] LABS: ALANINE AMINOTRANSFERASE 13 Units/L (12-78); ALBUMIN 2.7 g/dL (3.4-5.0); ALKALINE PHOSPHATASE 54 Units/L (46-116); ASPARTATE AMINO TRANSFERASE 6 Units/L (15-37); BLOOD UREA NITROGEN 18 mg/dL (7-18); CALCIUM 8.1 mg/dL (8.5-10.1); CARBON DIOXIDE 24.8 mmol/L (21-32); CHLORIDE 108 mmol/L (98-107); COR CA(FOR HYPOALB) 9.1 mg/dL (8.5-10.1); COR NA(FOR HYPERGLY) 144 mmol/L (136-145); CREATININE 1.24 mg/dL (0.70-1.30); SODIUM 143 mmol/L (136-145); eGFR NON BLACK RACES > 60 (>60)
[2019-03-21 07:26] LABS: HEMOGLOBIN 11.2 g/dL (13.5-18.0)
[2019-03-21] MEDS ORDERED: DEPAKOTE D.R. TAB PO ONE ×2 (07:34→19:08)
[2019-03-21] MEDS: PULMICORT NEB TX 0.5 MG NEB SCH ×2 (08:52→20:28)
[2019-03-21] MEDS: AMANTADINE HCL 100 MG CAP PO SCH ×3 (09:09→13:31)
[2019-03-21] MEDS: DEPAKOTE D.R. TAB PO SCH ×2 (09:10→21:08)
[2019-03-21] MEDS: NORVASC TAB 10 MG PO SCH (09:10)
[2019-03-21] MEDS: PROTONIX TAB 40 MG PO SCH (09:10)
[2019-03-21] MEDS: LEVAQUIN PREMIX IV 500 MG 500 MG/100 ML BAG IV SCH (09:10)
[2019-03-21] MEDS: ROBITUSSIN DM PO SCH ×4 (09:10→21:07)
[2019-03-21] MEDS: ZOLOFT PO SCH (09:11)
[2019-03-21] MEDS: GLUCOPHAGE PO SCH ×2 (10:11→17:30)
[2019-03-21] MEDS: PATIENT'S HOME MEDICATION PO SCH ×2 (10:11→13:31)
[2019-03-21] MEDS: ZOSYN VIAL 4.5 GRAMS 4.5 G in NS 100 ML IV + SPIKE MINIBAG* 100 ML IV SCH ×2 (13:53→21:13)
[2019-03-21] MEDS ORDERED: XANAX PO ONE (15:00)
--- NOTE | 2019-03-21 16:34 | CT ---
History: Pneumonia, possible aspiration Exam: CT chest with contrast Comparison: None Technique: Axial spiral images were obtained from the clavicles through the adrenals after bolus administration of IV contrast. Automated dose control was utilized. Findings: The thyroid gland is unremarkable. There is mild calcified plaque and ectasia throughout the thoracic aorta with mild aneurysmal dilatation of the ascending aorta measuring up to 4.3 cm. There is no filling defect. There are mild coronary artery calcifications. The pulmonary arteries are well opacified with no filling defects. There small lymph nodes scattered in the AP window, pretracheal and subcarinal region with the largest at the eugenia measuring 9 mm. The adrenals are normal. The visualized upper abdomen is unremarkable . The lungs are hyperinflated and emphysematous . There are hazy ground-glass opacities along the right upper lobe extending inferiorly into the perihilar region and scattered along the right lung base anteriorly and posteriorly . There is hazy subsegmental left basilar opacity laterally and extending posteriorly. There are several reticular nodular densities scattered along the right perihilar region extending anteriorly and inferiorly . No effusion is seen. The adrenals are normal and the visualized upper abdomen is unremarkable. There are moderate degenerative changes seen throughout the lower thoracic spine. IMPRESSION: Mildly atherosclerotic and ectatic thoracic aorta with aneurysmal dilatation of the ascending aorta measuring 4.3 cm . No obvious dissection is seen. Recommend continued follow-up. Small lymph nodes scattered in the mediastinum which are not pathologic by size criteria . Hazy ground-glass and reticular nodular infiltrates scattered in the right lung which are could represent multisegmental bronchopneumonia on the right , recommend follow-up until complete resolution. Mild subsegmental atelectasis or scarring along the lung bases posteriorly . Mild coronary artery calcifications. Reported By:
[2019-03-21] MEDS ORDERED: GLUCOPHAGE ONE (17:23)
[2019-03-21] MEDS: SNACK - Diabetic Appropriate PO SCH (21:07)
[2019-03-21] MEDS: DESYREL PO SCH (21:08)
[2019-03-21] MEDS: LIPITOR TAB 20 MG PO SCH (21:08)
[2019-03-21] MEDS: ARICEPT TAB 10 MG PO SCH (21:13)
[2019-03-21] MEDS: XANAX PO PRN (21:13)
[2019-03-21] MEDS ORDERED: NS 250 ML IV 250 ML IV ONE (21:21)
[2019-03-21] MEDS: NS 250 ML IV 250 ML IV SCH (23:23)
[2019-03-22] MEDS: DUONEB 0.5 MG/3 MG NEB SCH ×6 (00:21→20:35)
[2019-03-22] MEDS: NS 1000 ML 1,000 ML IV SCH ×5 (01:08→21:09)
[2019-03-22] MEDS: ZOSYN VIAL 4.5 GRAMS 4.5 G in NS 100 ML IV + SPIKE MINIBAG* 100 ML IV SCH ×3 (05:10→21:19)
[2019-03-22 06:07] LABS: BASOPHILS % (AUTO) 0.4 % (0.2-1.0); EOSINOPHILS # (AUTO) 0.1 x10^3/uL (0.0-0.2); EOSINOPHILS % (AUTO) 1.1 % (0.9-2.9); HEMATOCRIT 32.6 % (42.0-54.0); HEMOGLOBIN 11.3 g/dL (13.5-18.0); LYMPHOCYTES # (AUTO) 0.7 X10^3/uL (1.3-2.9); LYMPHOCYTES % (AUTO) 13.5 % (21.0-51.0); MEAN CORPUSCULAR HEMOGLOBIN 30.5 pg (27.0-34.0); MEAN CORPUSCULAR HGB CONC 34.8 g/dL (33.0-35.0); MEAN CORPUSCULAR VOLUME 87.6 fL (80.0-100.0); MEAN PLATELET VOLUME 9.2 fL (7.4-11.0); MONOCYTES # (AUTO) 0.6 x10^3/uL (0.3-0.8); MONOCYTES % (AUTO) 10.4 % (0.0-13.0); NEUTROPHILS # (AUTO) 4.1 x10^3/uL (2.2-4.8); NEUTROPHILS % (AUTO) 74.6 % (42.0-75.0); PLATELET COUNT 110 X10^3/uL (150.0-450.0); RED BLOOD COUNT 3.72 X10^6/uL (4.7-6.0); RED CELL DISTRIBUTION WIDTH 14.5 % (11.6-16.5); WHITE BLOOD COUNT 5.5 X10^3/uL (3.6-10.0)
[2019-03-22 06:20] LABS: ALANINE AMINOTRANSFERASE 13 Units/L (12-78); ALBUMIN 2.7 g/dL (3.4-5.0); ALKALINE PHOSPHATASE 54 Units/L (46-116); ASPARTATE AMINO TRANSFERASE < 6 Units/L (15-37); BLOOD UREA NITROGEN 8 mg/dL (7-18); CARBON DIOXIDE 24.5 mmol/L (21-32); CHLORIDE 108 mmol/L (98-107); COR NA(FOR HYPERGLY) 146 mmol/L (136-145); CREATININE 1.03 mg/dL (0.70-1.30); SODIUM 145 mmol/L (136-145); TOTAL PROTEIN 6.3 g/dL (6.4-8.2); eGFR NON BLACK RACES > 60 (>60)
[2019-03-22] MEDS ORDERED: GLUCOPHAGE ONE ×2 (08:20→18:18)
[2019-03-22] MEDS: GLUCOPHAGE PO SCH ×2 (08:21→18:15)
[2019-03-22] MEDS: AMANTADINE HCL 100 MG CAP PO SCH ×2 (08:22→12:30)
[2019-03-22] MEDS: PATIENT'S HOME MEDICATION PO SCH ×2 (08:22→12:30)
[2019-03-22] MEDS: LEVAQUIN PREMIX IV 500 MG 500 MG/100 ML BAG IV SCH (08:24)
[2019-03-22] MEDS: NORVASC TAB 10 MG PO SCH (08:24)
[2019-03-22] MEDS: PROTONIX TAB 40 MG PO SCH (08:25)
[2019-03-22] MEDS: ROBITUSSIN DM PO SCH ×4 (08:25→21:06)
[2019-03-22] MEDS: ZOLOFT PO SCH (08:26)
[2019-03-22] MEDS: DEPAKOTE D.R. TAB PO SCH ×2 (08:43→21:06)
[2019-03-22] MEDS: PULMICORT NEB TX 0.5 MG NEB SCH ×2 (09:06→20:35)
[2019-03-22] MEDS ORDERED: NORCO 10/325 TAB ONE (15:37)
[2019-03-22] MEDS: NORCO 5/325 MG TAB PO PRN (15:39)
[2019-03-22] MEDS: NS 250 ML IV 250 ML IV SCH (20:11)
[2019-03-22] MEDS: SNACK - Diabetic Appropriate PO SCH (20:12)
[2019-03-22] MEDS: ARICEPT TAB 10 MG PO SCH (21:05)
[2019-03-22] MEDS: DESYREL PO SCH (21:05)
[2019-03-22] MEDS: LIPITOR TAB 20 MG PO SCH (21:06)
[2019-03-22] MEDS: XANAX PO PRN (21:08)
[2019-03-23] MEDS: DUONEB 0.5 MG/3 MG NEB SCH ×6 (01:10→20:55)
[2019-03-23] MEDS: NS 250 ML IV 250 ML IV SCH ×2 (02:43→19:05)
[2019-03-23] MEDS: ZOSYN VIAL 4.5 GRAMS 4.5 G in NS 100 ML IV + SPIKE MINIBAG* 100 ML IV SCH ×3 (05:52→22:00)
[2019-03-23] MEDS: NS 1000 ML 1,000 ML IV SCH ×3 (05:53→15:20)
[2019-03-23] MEDS ORDERED: GLUCOPHAGE ONE (05:55)
[2019-03-23 06:06] LABS: BASOPHILS % (AUTO) 0.5 % (0.2-1.0); EOSINOPHILS # (AUTO) 0.1 x10^3/uL (0.0-0.2); EOSINOPHILS % (AUTO) 1.6 % (0.9-2.9); LYMPHOCYTES # (AUTO) 0.9 X10^3/uL (1.3-2.9); MEAN CORPUSCULAR HEMOGLOBIN 30.2 pg (27.0-34.0); MEAN CORPUSCULAR HGB CONC 34.4 g/dL (33.0-35.0); MEAN CORPUSCULAR VOLUME 87.7 fL (80.0-100.0); MEAN PLATELET VOLUME 9.5 fL (7.4-11.0); MONOCYTES # (AUTO) 0.6 x10^3/uL (0.3-0.8); MONOCYTES % (AUTO) 10.6 % (0.0-13.0); NEUTROPHILS # (AUTO) 3.6 x10^3/uL (2.2-4.8); NEUTROPHILS % (AUTO) 69.3 % (42.0-75.0); PLATELET COUNT 58 X10^3/uL (150.0-450.0); RED BLOOD COUNT 3.65 X10^6/uL (4.7-6.0); RED CELL DISTRIBUTION WIDTH 14.6 % (11.6-16.5); WHITE BLOOD COUNT 5.2 X10^3/uL (3.6-10.0)
[2019-03-23 06:11] LABS: ALANINE AMINOTRANSFERASE 10 Units/L (12-78); ALBUMIN 2.5 g/dL (3.4-5.0); ALKALINE PHOSPHATASE 54 Units/L (46-116); ASPARTATE AMINO TRANSFERASE < 6 Units/L (15-37); BLOOD UREA NITROGEN 7 mg/dL (7-18); CALCIUM 8.2 mg/dL (8.5-10.1); CARBON DIOXIDE 25.7 mmol/L (21-32); CHLORIDE 107 mmol/L (98-107); COR CA(FOR HYPOALB) 9.4 mg/dL (8.5-10.1); COR NA(FOR HYPERGLY) 145 mmol/L (136-145); CREATININE 0.95 mg/dL (0.70-1.30); SODIUM 144 mmol/L (136-145); TOTAL PROTEIN 6.2 g/dL (6.4-8.2); eGFR NON BLACK RACES > 60 (>60)
[2019-03-23] MEDS: GLUCOPHAGE PO SCH ×2 (06:18→17:58)
[2019-03-23] MEDS: MUCOMYST 20% 200 MG/ML NEB SCH ×4 (09:57→20:55)
[2019-03-23] MEDS: PULMICORT NEB TX 0.5 MG NEB SCH ×2 (09:57→20:55)
[2019-03-23] MEDS: AMANTADINE HCL 100 MG CAP PO SCH ×2 (10:10→14:15)
[2019-03-23] MEDS: DEPAKOTE D.R. TAB PO SCH ×2 (10:11→20:53)
[2019-03-23] MEDS: PATIENT'S HOME MEDICATION PO SCH ×2 (10:12→14:00)
[2019-03-23] MEDS: PROTONIX TAB 40 MG PO SCH (10:15)
[2019-03-23] MEDS: LEVAQUIN PREMIX IV 500 MG 500 MG/100 ML BAG IV SCH (10:15)
[2019-03-23] MEDS: ZOLOFT PO SCH (10:15)
[2019-03-23] MEDS: NORVASC TAB 10 MG PO SCH (10:15)
[2019-03-23] MEDS: MILK OF MAGNESIA PO SCH ×2 (10:18→20:54)
[2019-03-23] MEDS: ROBITUSSIN DM PO SCH ×4 (10:18→20:55)
--- NOTE | 2019-03-23 10:24 | RAD ---
HISTORY: Pneumonia Study: Single-view chest Comparison: 03/21/2019. Findings: Trachea is midline. There is cardiomegaly. The configuration of the aortic arch is unchanged. This is unusual. This may represent a pseudo-coarctation or vascular variation or substernal thyroid. Left continues to be clear. There is improvement in the perihilar infiltrate on the right side with still some remaining. No pleural fluid or pneumothorax is seen. Osseous structures are intact. IMPRESSION: Further improvement in aeration of the right lung with still some persisting right perihilar infiltrate. No significant interval change involving the region of the aortic arch. Reported By:
--- NOTE | 2019-03-23 17:40 | PCM.PROG ---
Progress Note - Progress Note for Day of Date of Exam: 03/21/19 - Subjective Subjective: 53 WM ER ADMISSION ON 03/20 WITH RIGHT LOBE PNEUMONIA, SUSPECTED DUE TO ASPIRATION. PT IS CURRENTLY ON IV ATBX, SUPPLEMENTAL O2 AND DUO NEBS. PT HAS HX OF ASPIRATION FOLLOWING A TRAUMATIC BRAING INJURY. PT'S SPOUSE IS HIS CAREGIVER AND REPORTS PT HAD MODIFIED BARIUM SWALLOW STUDY ON SATURDAY PRIOR TO ADMISSION AND " RESULTS WERE FINE". PT CONTINUES WITH DIFFUSE DIMINISHED RIGHT LUNG SOUNDS, CT SCAN OF LUNGS ORDERED FOR TODAY. WBC 5.5 - Past Medical Family Social History Past Med/Fam/Surg Hx: No changes since H&P Allergies: Allergies No Known Drug Allergies Allergy (Verified 07/30/18 15:35) - Review of Systems ROS: No change since H&P - Vital Signs and I&O's Vital Signs: Temperature 98.0 F Pulse Rate [Right Brachial] 82 Pulse Rate 105 Respiratory Rate 20 Blood Pressure [Right Arm] 143/75 Blood Pressure [Left Arm] 124/72 Blood Pressure 125/72 O2 Sat by Pulse Oximetry 95 Intake and Output: Intake & Output 03/21/19 03/22/19 03/23/19 03/24/19 11:59 11:59 11:59 11:59 Intake Total 2815 / 2815 3040 / 3040 2830 / 2830 480 / 480 Balance 2815 / 2815 3040 / 3040 2830 / 2830 480 / 480 - Physical Exam Oriented: Person Eyes: Normal Ear: Normal Nose: Normal Throat: Exudate, Dry Respiratory: Diminished, Rhonchi Cardiovascular: Murmur : Normal Auscultation: Bowel Sounds: Normal Tenderness: Diffuse, Mild Skin: Decreased Turgur Musculoskeletal: Right, Left, Arm, Leg, Motor Deficit Psychiatric: Anxiety Speech Pattern: Appropriate, Delayed - Laboratory and Diagnostics Result Diagrams: 03/23/19 05:28 03/23/19 05:28 Labs: 03/20/19 05:20 Blood Blood Culture - Preliminary 03/20/19 05:18 Blood Blood Culture - Preliminary 03/20/19 09:17 Sputum - Expectorated Sputum Sputum Culture - Final 03/20/19 09:17 Sputum - Expectorated Sputum - Final Laboratory WBC 5.2 X10^3/uL (3.6-10.0) 03/23/19 05:28 RBC 3.65 X10^6/uL (4.7-6.0) L 03/23/19 05:28 Hgb 11.0 g/dL (13.5-18.0) L 03/23/19 05:28 Hct 32.0 % (42.0-54.0) L 03/23/19 05:28 MCV 87.7 fL (80.0-100.0) 03/23/19 05:28 MCH 30.2 pg (27.0-34.0) 03/23/19 05:28 MCHC 34.4 g/dL (33.0-35.0) 03/23/19 05:28 RDW 14.6 % (11.6-16.5) 03/23/19 05:28 Plt Count 58 X10^3/uL (150.0-450.0) L 03/23/19 05:28 MPV 9.5 fL (7.4-11.0) 03/23/19 05:28 Neut % (Auto) 69.3 % (42.0-75.0) 03/23/19 05:28 Lymph % (Auto) 18.0 % (21.0-51.0) L 03/23/19 05:28 [place] % (Auto) 10.6 % (0.0-13.0) 03/23/19 05:28 Eos % (Auto) 1.6 % (0.9-2.9) 03/23/19 05:28 Baso % (Auto) 0.5 % (0.2-1.0) 03/23/19 05:28 Neut # (Auto) 3.6 x10^3/uL (2.2-4.8) 03/23/19 05:28 Lymph # (Auto) 0.9 X10^3/uL (1.3-2.9) L 03/23/19 05:28 [place] # (Auto) 0.6 x10^3/uL (0.3-0.8) 03/23/19 05:28 Eos # (Auto) 0.1 x10^3/uL (0.0-0.2) 03/23/19 05:28 Baso # (Auto) 0.0 X10^3/uL (0.0-0.1) 03/23/19 05:28 Absolute Nucleated RBC 0.1 /100WBC 03/23/19 05:28 Sample Site Rr 03/20/19 08:42 ABG pH 7.390 (7.35-7.45) 03/20/19 08:42 ABG pCO2 42.0 mmHg (35.0-45.0) 03/20/19 08:42 ABG pO2 61.0 mmHg (80.0-100.0) L 03/20/19 08:42 ABG HCO3 25.4 mmol/L (22-26) 03/20/19 08:42 ABG O2 Saturation 91.0 % (90-100) 03/20/19 08:42 ABG Base Excess 0.3 mmol/L (-2.0-2.0) 03/20/19 08:42 [place] Test Pos 03/20/19 08:42 A-a Gradient 36.0 mmHg 03/20/19 08:42 FiO2 21.0 03/20/19 08:42 Blood Gas Comments Pt eneida well. cdn 03/20/19 08:42 Sodium 144 mmol/L (136-145) 03/23/19 05:28 Corrected Sodium 145 mmol/L (136-145) 03/23/19 05:28 Potassium 3.9 mmol/L (3.5-5.1) 03/23/19 05:28 Chloride 107 mmol/L (98-107) 03/23/19 05:28 Carbon Dioxide 25.7 mmol/L (21-32) 03/23/19 05:28 BUN 7 mg/dL (7-18) 03/23/19 05:28 Creatinine 0.95 mg/dL (0.70-1.30) 03/23/19 05:28 Est GFR (MDRD) Af Amer > 60 (>60) 03/23/19 05:28 Est GFR (MDRD) Non-Af > 60 (>60) 03/23/19 05:28 Glucose 128 mg/dL (65-99) H 03/23/19 05:28 POC Glucose (mg/dL) 170 mg/dL (65-99) H 03/23/19 16:37 Calcium 8.2 mg/dL (8.5-10.1) L 03/23/19 05:28 Corrected Calcium 9.4 mg/dL (8.5-10.1) 03/23/19 05:28 Total Bilirubin 0.20 mg/dL (0.2-1.0) 03/23/19 05:28 AST < 6 Units/L (15-37) L 03/23/19 05:28 ALT 10 Units/L (12-78) L 03/23/19 05:28 Alkaline Phosphatase 54 Units/L (46-116) 03/23/19 05:28 Creatine Kinase 47 Units/L (39-308) 03/20/19 05:20 CK-MB (CK-2) < 1.0 ng/mL (0-4.0) 03/20/19 05:20 CK/CKMB % Calc 2.1 % (<4) 03/20/19 05:20 Troponin I < 0.02 ng/mL (0-1.5) 03/20/19 05:20 Total Protein 6.2 g/dL (6.4-8.2) L 03/23/19 05:28 Albumin 2.5 g/dL (3.4-5.0) L 03/23/19 05:28 Globulin 3.7 g/dL (2.5-4.5) 03/23/19 05:28 Albumin/Globulin Ratio 0.7 Ratio (1.1-2.1) L 03/23/19 05:28 Specimen Type Clean catch urine 03/20/19 14:20 Urine Color Yellow (YELLOW) 03/20/19 14:20 Urine Appearance Clear (CLEAR) 03/20/19 14:20 Urine pH 6.0 (5.0 - 8.0) 03/20/19 14:20 Ur Specific [place] 1.015 (1.000-1.030) 03/20/19 14:20 Urine Protein Negative (NEGATIVE) 03/20/19 14:20 Urine Glucose (UA) Negative (NEGATIVE) 03/20/19 14:20 Urine Ketones Negative (NEGATIVE) 03/20/19 14:20 Urine Occult Blood Negative (NEGATIVE) 03/20/19 14:20 Urine Nitrite Negative (NEGATIVE) 03/20/19 14:20 Urine Bilirubin Negative (NEGATIVE) 03/20/19 14:20 Urine Urobilinogen Normal (NORMAL) 03/20/19 14:20 Ur Leukocyte Esterase Negative (NEGATIVE) 03/20/19 14:20 - Plan (1) Pneumonia involving right lung Status: Acute Qualifiers: Pneumonia type: aspiration pneumonia Aspiration pneumonia type: due to vomit Lung location: upper lobe of lung Qualified Code(s): J69.0 - P neumonitis due to inhalation of food and vomit Plan: PNEUMONIA PROTOCOL, IV ATBX THERAPY, GENTLE IV HYDRATION. BLOOD AND SPUTUM CULTURES ORDERED ON ADMISSION. ASPIRATION PRECAUTIONS, RESP CONSULT. ABG ON ADMISSION, SUPPLEMENTAL O2. SERIZURE PRECAUTIONS, BEDSIDE SUCTION. BS CONTROL, BP CONTROL. CT CHEST TODAY (2) Dehydration Status: Acute (3) History of traumatic brain injury Status: Chronic (4) Seizure Status: Acute (5) GERD (gastroesophageal reflux disease) Status: Chronic Qualifiers: Esophagitis presence: esophagitis presence not specified Qualified Code(s): K21.9 - Gastro-esophageal reflux disease without esophagitis
--- NOTE | 2019-03-23 17:41 | PCM.PROG ---
Progress Note - Progress Note for Day of Date of Exam: 03/22/19 - Subjective Subjective: 53 WM ER ADMISSION ON 03/20 WITH RIGHT LOBE PNEUMONIA, SUSPECTED DUE TO ASPIRATION. PT IS CURRENTLY ON IV ATBX, SUPPLEMENTAL O2 AND DUO NEBS. PT HAS HX OF ASPIRATION FOLLOWING A TRAUMATIC BRAING INJURY. PT'S SPOUSE IS HIS CAREGIVER AND REPORTS PT HAD MODIFIED BARIUM SWALLOW STUDY ON SATURDAY PRIOR TO ADMISSION AND " RESULTS WERE FINE". PT CONTINUES WITH DIFFUSE DIMINISHED RIGHT LUNG SOUNDS, CT SCAN OF LUNGS Mildly atherosclerotic and ectatic thoracic aorta with aneurysmal dilatation ofthe ascending aorta measuring 4.3 cm . No obvious dissection is seen. Recommend continued follow-up. Small lymph nodes scattered in the mediastinum which are not pathologic by size criteria . Hazy ground-glass and reticular nodular infiltrates scattered in the right lung which are could represent multisegmental bronchopneumonia on the right ,recommend follow-up until complete resolution. RESULTS REVIEWED WITH PT AND SPOUSE. WBC 5.5. PT IS MORE AWAKE AND ALERT THIS AM, NO SPUTUM PRODUCTION. TOLERATING DIET WELL, NO REPORTS OF DIFFICULTY SWALLOWING. BM ON SATURDAY. - Past Medical Family Social History Past Med/Fam/Surg Hx: No changes since H&P Allergies: Allergies No Known Drug Allergies Allergy (Verified 07/30/18 15:35) - Review of Systems ROS: No change since H&P - Vital Signs and I&O's Vital Signs: Temperature 98.0 F Pulse Rate [Right Brachial] 82 Pulse Rate 105 Respiratory Rate 20 Blood Pressure [Right Arm] 143/75 Blood Pressure [Left Arm] 124/72 Blood Pressure 125/72 O2 Sat by Pulse Oximetry 95 Intake and Output: Intake & Output 03/21/19 03/22/19 03/23/19 03/24/19 11:59 11:59 11:59 11:59 Intake Total 2815 / 2815 3040 / 3040 2830 / 2830 480 / 480 Balance 2815 / 2815 3040 / 3040 2830 / 2830 480 / 480 - Physical Exam Oriented: Person Eyes: Normal Ear: Normal Nose: Normal Throat: Exudate, Dry Respiratory: Diminished, Rhonchi Cardiovascular: Murmur : Normal Auscultation: Bowel Sounds: Normal Tenderness: Diffuse, Mild Skin: Decreased Turgur Musculoskeletal: Right, Left, Arm, Leg, Motor Deficit Psychiatric: Anxiety Speech Pattern: Appropriate, Delayed - Laboratory and Diagnostics Result Diagrams: 03/23/19 05:28 03/23/19 05:28 Labs: 03/20/19 05:20 Blood Blood Culture - Preliminary 03/20/19 05:18 Blood Blood Culture - Preliminary 03/20/19 09:17 Sputum - Expectorated Sputum Sputum Culture - Final 03/20/19 09:17 Sputum - Expectorated Sputum - Final Laboratory WBC 5.2 X10^3/uL (3.6-10.0) 03/23/19 05:28 RBC 3.65 X10^6/uL (4.7-6.0) L 03/23/19 05:28 Hgb 11.0 g/dL (13.5-18.0) L 03/23/19 05:28 Hct 32.0 % (42.0-54.0) L 03/23/19 05:28 MCV 87.7 fL (80.0-100.0) 03/23/19 05:28 MCH 30.2 pg (27.0-34.0) 03/23/19 05:28 MCHC 34.4 g/dL (33.0-35.0) 03/23/19 05:28 RDW 14.6 % (11.6-16.5) 03/23/19 05:28 Plt Count 58 X10^3/uL (150.0-450.0) L 03/23/19 05:28 MPV 9.5 fL (7.4-11.0) 03/23/19 05:28 Neut % (Auto) 69.3 % (42.0-75.0) 03/23/19 05:28 Lymph % (Auto) 18.0 % (21.0-51.0) L 03/23/19 05:28 [place] % (Auto) 10.6 % (0.0-13.0) 03/23/19 05:28 Eos % (Auto) 1.6 % (0.9-2.9) 03/23/19 05:28 Baso % (Auto) 0.5 % (0.2-1.0) 03/23/19 05:28 Neut # (Auto) 3.6 x10^3/uL (2.2-4.8) 03/23/19 05:28 Lymph # (Auto) 0.9 X10^3/uL (1.3-2.9) L 03/23/19 05:28 [place] # (Auto) 0.6 x10^3/uL (0.3-0.8) 03/23/19 05:28 Eos # (Auto) 0.1 x10^3/uL (0.0-0.2) 03/23/19 05:28 Baso # (Auto) 0.0 X10^3/uL (0.0-0.1) 03/23/19 05:28 Absolute Nucleated RBC 0.1 /100WBC 03/23/19 05:28 Sample Site Rr 03/20/19 08:42 ABG pH 7.390 (7.35-7.45) 03/20/19 08:42 ABG pCO2 42.0 mmHg (35.0-45.0) 03/20/19 08:42 ABG pO2 61.0 mmHg (80.0-100.0) L 03/20/19 08:42 ABG HCO3 25.4 mmol/L (22-26) 03/20/19 08:42 ABG O2 Saturation 91.0 % (90-100) 03/20/19 08:42 ABG Base Excess 0.3 mmol/L (-2.0-2.0) 03/20/19 08:42 [place] Test Pos 03/20/19 08:42 A-a Gradient 36.0 mmHg 03/20/19 08:42 FiO2 21.0 03/20/19 08:42 Blood Gas Comments Pt eneida well. cdn 03/20/19 08:42 Sodium 144 mmol/L (136-145) 03/23/19 05:28 Corrected Sodium 145 mmol/L (136-145) 03/23/19 05:28 Potassium 3.9 mmol/L (3.5-5.1) 03/23/19 05:28 Chloride 107 mmol/L (98-107) 03/23/19 05:28 Carbon Dioxide 25.7 mmol/L (21-32) 03/23/19 05:28 BUN 7 mg/dL (7-18) 03/23/19 05:28 Creatinine 0.95 mg/dL (0.70-1.30) 03/23/19 05:28 Est GFR (MDRD) Af Amer > 60 (>60) 03/23/19 05:28 Est GFR (MDRD) Non-Af > 60 (>60) 03/23/19 05:28 Glucose 128 mg/dL (65-99) H 03/23/19 05:28 POC Glucose (mg/dL) 170 mg/dL (65-99) H 03/23/19 16:37 Calcium 8.2 mg/dL (8.5-10.1) L 03/23/19 05:28 Corrected Calcium 9.4 mg/dL (8.5-10.1) 03/23/19 05:28 Total Bilirubin 0.20 mg/dL (0.2-1.0) 03/23/19 05:28 AST < 6 Units/L (15-37) L 03/23/19 05:28 ALT 10 Units/L (12-78) L 03/23/19 05:28 Alkaline Phosphatase 54 Units/L (46-116) 03/23/19 05:28 Creatine Kinase 47 Units/L (39-308) 03/20/19 05:20 CK-MB (CK-2) < 1.0 ng/mL (0-4.0) 03/20/19 05:20 CK/CKMB % Calc 2.1 % (<4) 03/20/19 05:20 Troponin I < 0.02 ng/mL (0-1.5) 03/20/19 05:20 Total Protein 6.2 g/dL (6.4-8.2) L 03/23/19 05:28 Albumin 2.5 g/dL (3.4-5.0) L 03/23/19 05:28 Globulin 3.7 g/dL (2.5-4.5) 03/23/19 05:28 Albumin/Globulin Ratio 0.7 Ratio (1.1-2.1) L 03/23/19 05:28 Specimen Type Clean catch urine 03/20/19 14:20 Urine Color Yellow (YELLOW) 03/20/19 14:20 Urine Appearance Clear (CLEAR) 03/20/19 14:20 Urine pH 6.0 (5.0 - 8.0) 03/20/19 14:20 Ur Specific [place] 1.015 (1.000-1.030) 03/20/19 14:20 Urine Protein Negative (NEGATIVE) 03/20/19 14:20 Urine Glucose (UA) Negative (NEGATIVE) 03/20/19 14:20 Urine Ketones Negative (NEGATIVE) 03/20/19 14:20 Urine Occult Blood Negative (NEGATIVE) 03/20/19 14:20 Urine Nitrite Negative (NEGATIVE) 03/20/19 14:20 Urine Bilirubin Negative (NEGATIVE) 03/20/19 14:20 Urine Urobilinogen Normal (NORMAL) 03/20/19 14:20 Ur Leukocyte Esterase Negative (NEGATIVE) 03/20/19 14:20 - Plan (1) Pneumonia involving right lung Status: Acute Qualifiers: Pneumonia type: aspiration pneumonia Aspiration pneumonia type: due to vomit Lung location: upper lobe of lung Qualified Code(s): J69.0 - Pneumonitis due to inhalation of food and vomit Plan: PNEUMONIA PROTOCOL, IV ATBX THERAPY, GENTLE IV HYDRATION. BLOOD AND SPUTUM CULTURES ORDERED ON ADMISSION. ASPIRATION PRECAUTIONS, RESP CONSULT. ABG ON ADMISSION, SUPPLEMENTAL O2. SERIZURE PRECAUTIONS, BEDSIDE SUCTION. BS CONTROL, BP CONTROL. CT CHEST TODAY (2) Dehydration Status: Acute (3) History of traumatic brain injury Status: Chronic (4) Seizure Status: Acute (5) GERD (gastroesophageal reflux disease) Status: Chronic Qualifiers: Esophagitis presence: esophagitis presence not specified Qualified Code(s): K21.9 - Gastro-esophageal reflux disease without esophagitis
--- NOTE | 2019-03-23 17:47 | PCM.PROG ---
Progress Note - Progress Note for Day of Date of Exam: 03/23/19 - Subjective Subjective: 53 WM ER ADMISSION ON 03/20 WITH RIGHT LOBE PNEUMONIA, SUSPECTED DUE TO ASPIRATION. PT IS CURRENTLY ON IV ATBX, SUPPLEMENTAL O2 AND DUO NEBS. PT HAS HX OF ASPIRATION FOLLOWING A TRAUMATIC BRAING INJURY. PT'S SPOUSE IS HIS CAREGIVER AND REPORTS PT HAD MODIFIED BARIUM SWALLOW STUDY ON SATURDAY PRIOR TO ADMISSION AND " RESULTS WERE FINE". PT CONTINUES WITH DIFFUSE DIMINISHED RIGHT LUNG SOUNDS. PT IS MORE AWAKE AND ALERT THIS AM, NO SPUTUM PRODUCTION. MUCOMYST AND SMART VEST ORDERED TO FACILITATE SPUTUM PRODUCTION. SPOUSE REPORTS PT CO HEAD YESTERDAY EVENING RELIEVED WITH NORCO, DENIES AKHTAR TODAY. TOLERATING DIET WELL, NO REPORTS OF DIFFICULTY SWALLOWING. BM ON SATURDAY. WBC 5.2 THIS AM, AFE BRILE - Past Medical Family Social History Past Med/Fam/Surg Hx: No changes since H&P Allergies: Allergies No Known Drug Allergies Allergy (Verified 07/30/18 15:35) - Review of Systems ROS: No change since H&P - Vital Signs and I&O's Vital Signs: Temperature 98.0 F Pulse Rate [Right Brachial] 82 Pulse Rate 105 Respiratory Rate 20 Blood Pressure [Right Arm] 143/75 Blood Pressure [Left Arm] 124/72 Blood Pressure 125/72 O2 Sat by Pulse Oximetry 95 Intake and Output: Intake & Output 03/21/19 03/22/19 03/23/19 03/24/19 11:59 11:59 11:59 11:59 Intake Total 2815 / 2815 3040 / 3040 2830 / 2830 480 / 480 Balance 2815 / 2815 3040 / 3040 2830 / 2830 480 / 480 - Physical Exam Oriented: Person Eyes: Normal Ear: Normal Nose: Normal Throat: Exudate, Dry Respiratory: Diminished, Rhonchi Cardiovascular: Murmur : Normal Auscultation: Bowel Sounds: Normal Tenderness: Diffuse, Mild Skin: Decreased Turgur Musculoskeletal: Right, Left, Arm, Leg, Motor Deficit Psychiatric: Anxiety Speech Pattern: Appropriate, Delayed - Laboratory and Diagnostics Result Diagrams: 03/23/19 05:28 03/23/19 05:28 Labs: 03/20/19 05:20 Blood Blood Culture - Preliminary 03/20/19 05:18 Blood Blood Culture - Preliminary 03/20/19 09:17 Sputum - Expectorated Sputum Sputum Culture - Final 03/20/19 09:17 Sputum - Expectorated Sputum - Final Laboratory WBC 5.2 X10^3/uL (3.6-10.0) 03/23/19 05:28 RBC 3.65 X10^6/uL (4.7-6.0) L 03/23/19 05:28 Hgb 11.0 g/dL (13.5-18.0) L 03/23/19 05:28 Hct 32.0 % (42.0-54.0) L 03/23/19 05:28 MCV 87.7 fL (80.0-100.0) 03/23/19 05:28 MCH 30.2 pg (27.0-34.0) 03/23/19 05:28 MCHC 34.4 g/dL (33.0-35.0) 03/23/19 05:28 RDW 14.6 % (11.6-16.5) 03/23/19 05:28 Plt Count 58 X10^3/uL (150.0-450.0) L 03/23/19 05:28 MPV 9.5 fL (7.4-11.0) 03/23/19 05:28 Neut % (Auto) 69.3 % (42.0-75.0) 03/23/19 05:28 Lymph % (Auto) 18.0 % (21.0-51.0) L 03/23/19 05:28 [place] % (Auto) 10.6 % (0.0-13.0) 03/23/19 05:28 Eos % (Auto) 1.6 % (0.9-2.9) 03/23/19 05:28 Baso % (Auto) 0.5 % (0.2-1.0) 03/23/19 05:28 Neut # (Auto) 3.6 x10^3/uL (2.2-4.8) 03/23/19 05:28 Lymph # (Auto) 0.9 X10^3/uL (1.3-2.9) L 03/23/19 05:28 [place] # (Auto) 0.6 x10^3/uL (0.3-0.8) 03/23/19 05:28 Eos # (Auto) 0.1 x10^3/uL (0.0-0.2) 03/23/19 05:28 Baso # (Auto) 0.0 X10^3/uL (0.0-0.1) 03/23/19 05:28 Absolute Nucleated RBC 0.1 /100WBC 03/23/19 05:28 Sample Site Rr 03/20/19 08:42 ABG pH 7.390 (7.35-7.45) 03/20/19 08:42 ABG pCO2 42.0 mmHg (35.0-45.0) 03/20/19 08:42 ABG pO2 61.0 mmHg (80.0-100.0) L 03/20/19 08:42 ABG HCO3 25.4 mmol/L (22-26) 03/20/19 08:42 ABG O2 Saturation 91.0 % (90-100) 03/20/19 08:42 ABG Base Excess 0.3 mmol/L (-2.0-2.0) 03/20/19 08:42 [place] Test Pos 03/20/19 08:42 A-a Gradient 36.0 mmHg 03/20/19 08:42 FiO2 21.0 03/20/19 08:42 Blood Gas Comments Pt eneida well. cdn 03/20/19 08:42 Sodium 144 mmol/L (136-145) 03/23/19 05:28 Corrected Sodium 145 mmol/L (136-145) 03/23/19 05:28 Potassium 3.9 mmol/L (3.5-5.1) 03/23/19 05:28 Chloride 107 mmol/L (98-107) 03/23/19 05:28 Carbon Dioxide 25.7 mmol/L (21-32) 03/23/19 05:28 BUN 7 mg/dL (7-18) 03/23/19 05:28 Creatinine 0.95 mg/dL (0.70-1.30) 03/23/19 05:28 Est GFR (MDRD) Af Amer > 60 (>60) 03/23/19 05:28 Est GFR (MDRD) Non-Af > 60 (>60) 03/23/19 05:28 Glucose 128 mg/dL (65-99) H 03/23/19 05:28 POC Glucose (mg/dL) 170 mg/dL (65-99) H 03/23/19 16:37 Calcium 8.2 mg/dL (8.5-10.1) L 03/23/19 05:28 Corrected Calcium 9.4 mg/dL (8.5-10.1) 03/23/19 05:28 Total Bilirubin 0.20 mg/dL (0.2-1.0) 03/23/19 05:28 AST < 6 Units/L (15-37) L 03/23/19 05:28 ALT 10 Units/L (12-78) L 03/23/19 05:28 Alkaline Phosphatase 54 Units/L (46-116) 03/23/19 05:28 Creatine Kinase 47 Units/L (39-308) 03/20/19 05:20 CK-MB (CK-2) < 1.0 ng/mL (0-4.0) 03/20/19 05:20 CK/CKMB % Calc 2.1 % (<4) 03/20/19 05:20 Troponin I < 0.02 ng/mL (0-1.5) 03/20/19 05:20 Total Protein 6.2 g/dL (6.4-8.2) L 03/23/19 05:28 Albumin 2.5 g/dL (3.4-5.0) L 03/23/19 05:28 Globulin 3.7 g/dL (2.5-4.5) 03/23/19 05:28 Albumin/Globulin Ratio 0.7 Ratio (1.1-2.1) L 03/23/19 05:28 Specimen Type Clean catch urine 03/20/19 14:20 Urine Color Yellow (YELLOW) 03/20/19 14:20 Urine Appearance Clear (CLEAR) 03/20/19 14:20 Urine pH 6.0 (5.0 - 8.0) 03/20/19 14:20 Ur Specific [place] 1.015 (1.000-1.030) 03/20/19 14:20 Urine Protein Negative (NEGATIVE) 03/20/19 14:20 Urine Glucose (UA) Negative (NEGATIVE) 03/20/19 14:20 Urine Ketones Negative (NEGATIVE) 03/20/19 14:20 Urine Occult Blood Negative (NEGATIVE) 03/20/19 14:20 Urine Nitrite Negative (NEGATIVE) 03/20/19 14:20 Urine Bilirubin Negative (NEGATIVE) 03/20/19 14:20 Urine Urobilinogen Normal (NORMAL) 03/20/19 14:20 Ur Leukocyte Esterase Negative (NEGATIVE) 03/20/19 14:20 - Plan (1) Pneumonia involving right lung Status: Acute Qualifiers: Pneumonia type: aspiration pneumonia Aspiration pneumonia type: due to vomit Lung location: upper lobe of lung Qualified Code(s): J69.0 - Pneumonitis due to inhalation of food and vomit Plan: PNEUMONIA PROTOCOL, IV ATBX THERAPY, GENTLE IV HYDRATION. BLOOD AND SPUTUM CULTURES ORDERED ON ADMISSION. ASPIRATION PRECAUTIONS, RESP CONSULT. ABG ON ADMISSION, SUPPLEMENTAL O2. SERIZURE PRECAUTIONS, BEDSIDE SUCTION. BS CONTROL, BP CONTROL. CT CHEST TODAY (2) Dehydration Status: Acute (3) History of traumatic brain injury Status: Chronic (4) Seizure Status: Acute (5) GERD (gastroesophageal reflux disease) Status: Chronic Qualifiers: Esophagitis presence: esophagitis presence not specified Qualified Code(s): K21.9 - Gastro-esophageal reflux disease without esophagitis
[2019-03-23] MEDS: SNACK - Diabetic Appropriate PO SCH (19:05)
[2019-03-23] MEDS: ARICEPT TAB 10 MG PO SCH (20:53)
[2019-03-23] MEDS: DESYREL PO SCH (20:54)
[2019-03-23] MEDS: LIPITOR TAB 20 MG PO SCH (20:54)
[2019-03-23] MEDS: NORCO 5/325 MG TAB PO PRN (20:55)
[2019-03-23] MEDS: XANAX PO PRN (20:56)
[2019-03-23] MEDS ORDERED: COLACE CAP 100 MG PO SCH (21:00)
[2019-03-24] MEDS: NS 1000 ML 1,000 ML IV SCH ×3 (00:27→14:56)
[2019-03-24] MEDS: DUONEB 0.5 MG/3 MG NEB SCH ×4 (01:40→12:37)
[2019-03-24 05:18] LABS: ALANINE AMINOTRANSFERASE 9 Units/L (12-78); ALBUMIN 2.5 g/dL (3.4-5.0); ALKALINE PHOSPHATASE 60 Units/L (46-116); ASPARTATE AMINO TRANSFERASE < 6 Units/L (15-37); BLOOD UREA NITROGEN 9 mg/dL (7-18); CALCIUM 8.2 mg/dL (8.5-10.1); CARBON DIOXIDE 27.5 mmol/L (21-32); CHLORIDE 108 mmol/L (98-107); COR CA(FOR HYPOALB) 9.4 mg/dL (8.5-10.1); COR NA(FOR HYPERGLY) 144 mmol/L (136-145); CREATININE 1.09 mg/dL (0.70-1.30); SODIUM 143 mmol/L (136-145); TOTAL PROTEIN 6.1 g/dL (6.4-8.2); eGFR NON BLACK RACES > 60 (>60)
[2019-03-24 05:21] LABS: BASOPHILS # (AUTO) 0.2 X10^3/uL (0.0-0.1); BASOPHILS % (AUTO) 3.6 % (0.2-1.0); EOSINOPHILS # (AUTO) 0.1 x10^3/uL (0.0-0.2); EOSINOPHILS % (AUTO) 3.1 % (0.9-2.9); HEMATOCRIT 32.5 % (42.0-54.0); HEMOGLOBIN 11.1 g/dL (13.5-18.0); LYMPHOCYTES # (AUTO) 0.9 X10^3/uL (1.3-2.9); LYMPHOCYTES % (AUTO) 19.2 % (21.0-51.0); MEAN CORPUSCULAR HGB CONC 34.2 g/dL (33.0-35.0); MEAN CORPUSCULAR VOLUME 87.7 fL (80.0-100.0); MEAN PLATELET VOLUME 9.4 fL (7.4-11.0); MONOCYTES # (AUTO) 0.5 x10^3/uL (0.3-0.8); MONOCYTES % (AUTO) 10.7 % (0.0-13.0); NEUTROPHILS # (AUTO) 2.9 x10^3/uL (2.2-4.8); NEUTROPHILS % (AUTO) 63.4 % (42.0-75.0); PLATELET COUNT 99 X10^3/uL (150.0-450.0); RED CELL DISTRIBUTION WIDTH 14.1 % (11.6-16.5); WHITE BLOOD COUNT 4.6 X10^3/uL (3.6-10.0)
[2019-03-24] MEDS ORDERED: GLUCOPHAGE ONE (06:09)
--- NOTE | 2019-03-24 06:09 | RAD ---
HISTORY: Follow-up pneumonia Study: Chest AP portable Comparison: 03/23/2019 Findings: The heart is enlarged. No congestive heart failure is noted. The lungs are mildly hypo inflated. Mild residual perihilar infiltrate remains unchanged from the prior examination. The left lung is clear. No pleural effusions are identified. The bony thorax is unremarkable. IMPRESSION: No change right perihilar infiltrate Mild cardiomegaly without congestive heart failure Reported By:
[2019-03-24] MEDS: NS 250 ML IV 250 ML IV SCH ×2 (06:18→14:56)
[2019-03-24] MEDS: GLUCOPHAGE PO SCH (06:19)
[2019-03-24] MEDS: ZOSYN VIAL 4.5 GRAMS 4.5 G in NS 100 ML IV + SPIKE MINIBAG* 100 ML IV SCH ×2 (06:19→13:31)
[2019-03-24] MEDS: MUCOMYST 20% 200 MG/ML NEB SCH ×2 (08:22→12:37)
[2019-03-24] MEDS: PULMICORT NEB TX 0.5 MG NEB SCH (08:22)
[2019-03-24] MEDS: AMANTADINE HCL 100 MG CAP PO SCH (08:38)
[2019-03-24] MEDS: PATIENT'S HOME MEDICATION PO SCH ×2 (08:40→13:33)
[2019-03-24] MEDS: LEVAQUIN PREMIX IV 500 MG 500 MG/100 ML BAG IV SCH (08:41)
[2019-03-24] MEDS: MILK OF MAGNESIA PO SCH ×2 (08:42→08:49)
[2019-03-24] MEDS: ROBITUSSIN DM PO SCH ×2 (08:42→13:32)
[2019-03-24] MEDS: PROTONIX TAB 40 MG PO SCH (08:44)
[2019-03-24] MEDS: NORVASC TAB 10 MG PO SCH (08:44)
[2019-03-24] MEDS: ZOLOFT PO SCH (08:44)
[2019-03-24] MEDS ORDERED: PATIENT'S HOME MEDICATION PO SCH ×2 (09:00→12:00)
[2019-03-24 12:13] VITALS: BP 126/77
== END 2019-03-24 15:10 | disposition home or self-care (01) | DRG 178 ==
LOC: ER 04:55 → MED/SURG 07:18
PROVIDERS: ADMIT Internal Medicine; ATTEND Internal Medicine
DX: G40.89 Other seizures; J69.0 Pneumonitis due to inhalation of food and vomit; R00.0 Tachycardia, unspecified; I10 Essential (primary) hypertension; K21.9 Gastro-esophageal reflux disease without esophagitis; R40.2412 Glasgow coma scale score 13-15, at arrival to emergency department; Z87.820 Personal history of traumatic brain injury; E86.0 Dehydration; R13.11 Dysphagia, oral phase
CPT/HCPCS: 36415; 36600; 70450; 71010; 71045; 71260; 74022; 80053; 81003; 82550; 82553; 82803; 84484; 85025; 87040; 87070; 87205; 92526; 92610; 93005; 94640; 94669; 94760; 96365; 96367; 96374; 97110; 97161; 97165; 99284; A4222; G9017; J1815; J1956; J2543; J7030; J7050; J7608; J7620; J7626

== ENCOUNTER 2021-06-17 14:43 | Observation (INO) ==
--- NOTE | 2021-06-17 15:46 | DR.DIZZY ---
HPI Time seen Time Seen by Provider: 06/17/21 15:44 PCP Primary Care Physician: MARQUIS Medina MD Complaint Chief Complaint:: PTS REPORTS SINCE THIS AM PT STARTED TO HAVE BALANCE ISSUES, AND BE LETHARGIC ,, WHEN PT IS STOOD UP HE FALLS , AND EVERY SITTING POSTION HE LEANS ,,BR COVID-19 Coronavirus risk:travel/contact w/high risk person: No Has patient experienced Coronavirus symptoms: No Nurses Notes Reviewed Nurses Notes Review: Yes Source History Provided: Patient and Family Member Mode of Arrival Mode of Arrival: Wheelchair Timing Onset of Chief Complaint: 06/17/21 Came on: Suddenly Duration Duration: Constant Duration: Days Location of Weakness Weakness Location: None PMH PMH Past Medical History: Yes Past Medical History: Depression, Diabetes, Dyslipidemia and Hypertension Past Medical History Comment: TBI. Past Surgical History: Yes Surgical History: Ortho Surgery Past Surgical History Comment: KNEE, BACK , BRAIN Family History History of Family Medical Conditions: Yes Family Medical History: Coronary Artery Disease Family Medical History Comment: PACEMAKER, BR Social History Does patient currently use any type of tobacco product: No Have you used tobacco products in the last 12 months: No Type of Tobacco Use: None Does any household member use tobacco: No Alcohol Use: None Do you use any recreational Drugs:: No Lives With: Spouse Lives Where: Home Travel Risk Coronavirus risk:travel/contact w/high risk person: No Has patient experienced Coronavirus symptoms: No Infectious screening In the last 2 months have you had wt loss of >10#?: NO Have you had fever, night sweats or hemotysis?: No Have you traveled outside the country in the last 6 months?: No Isolation: Standard PE Vital Signs Vitals: Temperature 96.7 F Pulse Rate [Apical] 74 Pulse Rate 95 Respiratory Rate 18 Blood Pressure [Right Arm] 130/76 Blood Pressure 122/79 O2 Sat by Pulse Oximetry 97 ROR Labs Reviewed Result Diagrams: 06/17/21 16:02 06/17/21 16:02 Laboratory: WBC 5.4 X10^3/uL (3.6-10.0) 06/17/21 16:02 RBC 4.34 X10^6/uL (4.7-6.0) L 06/17/21 16:02 Hgb 12.6 g/dL (13.5-18.0) L 06/17/21 16:02 Hct 37.6 % (42.0-54.0) L 06/17/21 16:02 MCV 86.7 fL (80.0-100.0) 06/17/21 16:02 MCH 29.1 pg (27.0-34.0) 06/17/21 16:02 MCHC 33.5 g/dL (33.0-35.0) 06/17/21 16:02 RDW 15.5 % (11.6-16.5) 06/17/21 16:02 Plt Count 146 X10^3/uL (150.0-450.0) L 06/17/21 16:02 MPV 9.7 fL (7.4-11.0) 06/17/21 16:02 Neut % (Auto) 65.9 % (42.0-75.0) 06/17/21 16:02 Lymph % (Auto) 19.6 % (21.0-51.0) L 06/17/21 16:02 [place] % (Auto) 10.6 % (0.0-13.0) 06/17/21 16:02 Eos % (Auto) 1.8 % (0.9-2.9) 06/17/21 16:02 Baso % (Auto) 2.1 % (0.2-1.0) H 06/17/21 16:02 Neut # (Auto) 3.6 x10^3/uL (2.2-4.8) 06/17/21 16:02 Lymph # (Auto) 1.1 X10^3/uL (1.3-2.9) L 06/17/21 16:02 [place] # (Auto) 0.6 x10^3/uL (0.3-0.8) 06/17/21 16:02 Eos # (Auto) 0.1 x10^3/uL (0.0-0.2) 06/17/21 16:02 Baso # (Auto) 0.1 X10^3/uL (0.0-0.1) 06/17/21 16:02 Absolute Nucleated RBC 0.1 /100WBC 06/17/21 16:02 Sodium 137 mmol/L (136-145) 06/17/21 16:02 Corrected Sodium TNP 06/17/21 16:02 Potassium 4.5 mmol/L (3.5-5.1) 06/17/21 16:02 Chloride 102 mmol/L (98-107) 06/17/21 16:02 Carbon Dioxide 25.3 mmol/L (21-32) 06/17/21 16:02 BUN 14 mg/dL (7-18) 06/17/21 16:02 Creatinine 1.21 mg/dL (0.70-1.30) 06/17/21 16:02 Est GFR (MDRD) Af Amer > 60 (>60) 06/17/21 16:02 Est GFR (MDRD) Non-Af > 60 (>60) 06/17/21 16:02 Glucose 103 mg/dL (65-99) H 06/17/21 16:02 Calcium 9.1 mg/dL (8.5-10.1) 06/17/21 16:02 Corrected Calcium 9.7 mg/dL (8.5-10.1) 06/17/21 16:02 Total Bilirubin 0.30 mg/dL (0.2-1.0) 06/17/21 16:02 AST 12 Units/L (15-37) L 06/17/21 16:02 ALT 23 Units/L (12-78) 06/17/21 16:02 Alkaline Phosphatase 85 Units/L (46-116) 06/17/21 16:02 Creatine Kinase 36 Units/L (39-308) L 06/17/21 16:02 CK-MB (CK-2) 1.3 ng/mL (0-4.0) 06/17/21 16:02 CK/CKMB % Calc 3.6 % (<4) 06/17/21 16:02 Troponin I < 0.02 ng/mL (0-1.5) 06/17/21 16:02 Total Protein 6.4 g/dL (6.4-8.2) 06/17/21 16:02 Albumin 3.2 g/dL (3.4-5.0) L 06/17/21 16:02 Globulin 3.2 g/dL (2.5-4.5) 06/17/21 16:02 Albumin/Globulin Ratio 1.0 Ratio (1.1-2.1) L 06/17/21 16:02 Specimen Type Clean catch urine 06/17/21 16:05 Urine Color Yellow (YELLOW) 06/17/21 16:05 Urine Appearance Clear (CLEAR) 06/17/21 16:05 Urine pH 6.0 (5.0 - 8.0) 06/17/21 16:05 Ur Specific [place] 1.015 (1.000-1.030) 06/17/21 16:05 Urine Protein 1+ (NEGATIVE) 06/17/21 16:05 Urine Glucose (UA) Negative (NEGATIVE) 06/17/21 16:05 Urine Ketones 1+ (NEGATIVE) 06/17/21 16:05 Urine Occult Blood Negative (NEGATIVE) 06/17/21 16:05 Urine Nitrite Negative (NEGATIVE) 06/17/21 16:05 Urine Bilirubin Negative (NEGATIVE) 06/17/21 16:05 Urine Urobilinogen 1+ (NORMAL) 06/17/21 16:05 Ur Leukocyte Esterase Negative (NEGATIVE) 06/17/21 16:05 Urine RBC None seen /HPF (0-3) 06/17/21 16:05 Urine WBC None seen /HPF (0-5) 06/17/21 16:05 Ur Squamous Epith Cells Negative /HPF (NEGATIVE) 06/17/21 16:05 Calcium Oxalate Crystal Rare /HPF (NEGATIVE) 06/17/21 16:05 Urine Bacteria Trace /HPF (NEGATIVE) 06/17/21 16:05 Ur Culture Indicated? No/not indicated 06/17/21 16:05 SARS CoV-2 RNA Rapid MARYJO Negative (NEGATIVE) 06/17/21 21:04 Opioid Opioid Risk Tool Age (Nam box if 16-45): No History of Preadolescent Sexual Abuse: No Total: 0 Total Score Risk Category: Low Risk Copyright: Clif VIDAL predicting aberrant behaviors
--- NOTE | 2021-06-17 15:49 | CT ---
HISTORYTBI, VERTIGOSTUDYBRAIN W/O CONCOMPARISONCT brain from 03/20/2019.TECHNIQUEMultiple axial images of the head were performed from the skullbase to the vertex using standard departmental protocol. Sagittal and coronal reformatted images were performed. Dose reduction techniques including Automated Exposure Control (AEC) and adjustment of mA and kV were utilized.FINDINGSStable areas of encephalomalacia including the left frontal and temporal lobes and right parietal and temporal lobes. Stable appearance of the ventricles. The basilar cisterns are patent. No parenchymal mass or hematoma. No extra-axial collection.The globes are intact.No air fluid levels in the paranasal sinuses. No paranasal sinus wall thickening or sclerosis. Mastoid air cells are clear.Stable right convexity craniectomy.IMPRESSIONNo acute intracranial abnormality. Stable chronic areas of bilateral encephalomalacia.Electronically signed by: Chandler Theodore (Jun 17, 2021 15:47:12)
[2021-06-17 16:08] LABS: BASOPHILS # (AUTO) 0.1 X10^3/uL (0.0-0.1); BASOPHILS % (AUTO) 2.1 % (0.2-1.0); EOSINOPHILS # (AUTO) 0.1 x10^3/uL (0.0-0.2); EOSINOPHILS % (AUTO) 1.8 % (0.9-2.9); HEMATOCRIT 37.6 % (42.0-54.0); HEMOGLOBIN 12.6 g/dL (13.5-18.0); LYMPHOCYTES # (AUTO) 1.1 X10^3/uL (1.3-2.9); LYMPHOCYTES % (AUTO) 19.6 % (21.0-51.0); MEAN CORPUSCULAR HEMOGLOBIN 29.1 pg (27.0-34.0); MEAN CORPUSCULAR HGB CONC 33.5 g/dL (33.0-35.0); MEAN CORPUSCULAR VOLUME 86.7 fL (80.0-100.0); MEAN PLATELET VOLUME 9.7 fL (7.4-11.0); MONOCYTES # (AUTO) 0.6 x10^3/uL (0.3-0.8); MONOCYTES % (AUTO) 10.6 % (0.0-13.0); NEUTROPHILS # (AUTO) 3.6 x10^3/uL (2.2-4.8); NEUTROPHILS % (AUTO) 65.9 % (42.0-75.0); PLATELET COUNT 146 X10^3/uL (150.0-450.0); RED BLOOD COUNT 4.34 X10^6/uL (4.7-6.0); RED CELL DISTRIBUTION WIDTH 15.5 % (11.6-16.5); WHITE BLOOD COUNT 5.4 X10^3/uL (3.6-10.0)
[2021-06-17 16:22] LABS: ALANINE AMINOTRANSFERASE 23 Units/L (12-78); ALBUMIN 3.2 g/dL (3.4-5.0); ALKALINE PHOSPHATASE 85 Units/L (46-116); ASPARTATE AMINO TRANSFERASE 12 Units/L (15-37); BLOOD UREA NITROGEN 14 mg/dL (7-18); CALCIUM 9.1 mg/dL (8.5-10.1); CARBON DIOXIDE 25.3 mmol/L (21-32); CHLORIDE 102 mmol/L (98-107); COR CA(FOR HYPOALB) 9.7 mg/dL (8.5-10.1); CREATININE 1.21 mg/dL (0.70-1.30); SODIUM 137 mmol/L (136-145); TOTAL PROTEIN 6.4 g/dL (6.4-8.2); eGFR NON BLACK RACES > 60 (>60)
[2021-06-17 16:25] LABS: BILIRUBIN,URINE NEGATIVE (NEGATIVE); BLOOD/HEMOGLOBIN,URINE NEGATIVE (NEGATIVE); GLUCOSE, URINE NEGATIVE (NEGATIVE); KETONES,URINE 1+ (NEGATIVE); LEUKOCYTE ESTERASE ,URINE NEGATIVE (NEGATIVE); NITRITES,URINE NEGATIVE (NEGATIVE); PROTEIN,URINE 1+ (NEGATIVE); UROBILINOGEN,URINE 1+ (NORMAL)
[2021-06-17 16:29] LABS: APPEARANCE,URINE CLEAR (CLEAR); COLOR,URINE YELLOW (YELLOW)
[2021-06-17 16:34] LABS: BACTERIA,URINE TRACE /HPF (NEGATIVE); CALCIUM OXALATE CRYSTALS,UR RARE /HPF (NEGATIVE); RBC,URINE NONE SEEN /HPF (0-3); SQUAMOUS EPITHELIAL CELL,UR NEGATIVE /HPF (NEGATIVE)
[2021-06-17 16:44] LABS: CKMB % 3.6 % (<4); CREATINE KINASE 36 Units/L (39-308); CREATINE KINASE MB 1.3 ng/mL (0-4.0); TROPONIN I < 0.02 ng/mL (0-1.5)
--- NOTE | 2021-06-17 19:40 | RAD ---
HISTORYASPIRATIONSTUDYCHEST, 1 [id number]/13/2021.TECHNIQUEAP view of the chestFINDINGSThe cardiac and mediastinal contours are within normal limits. The lungs are radiographically clear without focal consolidation or segmental collapse. No pleural effusion or pneumothorax.IMPRESSIONNo acute pulmonary process. CT chest was recommended on prior study.Electronically signed by: Chandler Theodore (Jun 17, 2021 19:38:40)
[2021-06-17] MEDS ORDERED: NS 1,000 ML IV 1,000 ML IV SCH (23:45)
[2021-06-18 00:29] LABS: CREATINE KINASE 37 Units/L (39-308); CREATINE KINASE MB 1.1 ng/mL (0-4.0); TROPONIN I < 0.02 ng/mL (0-1.5)
[2021-06-18 03:30] VITALS: BMI 23.9
[2021-06-18] MEDS ORDERED: NovoLIN R (or HumuLIN R) SUBCUT PRN (03:53)
[2021-06-18 05:52] LABS: BASOPHILS % (AUTO) 1.1 % (0.2-1.0); EOSINOPHILS # (AUTO) 0.1 x10^3/uL (0.0-0.2); EOSINOPHILS % (AUTO) 2.6 % (0.9-2.9); HEMATOCRIT 34.5 % (42.0-54.0); HEMOGLOBIN 11.6 g/dL (13.5-18.0); LYMPHOCYTES # (AUTO) 1.2 X10^3/uL (1.3-2.9); LYMPHOCYTES % (AUTO) 28.6 % (21.0-51.0); MEAN CORPUSCULAR HGB CONC 33.7 g/dL (33.0-35.0); MEAN CORPUSCULAR VOLUME 86.1 fL (80.0-100.0); MEAN PLATELET VOLUME 9.2 fL (7.4-11.0); MONOCYTES # (AUTO) 0.5 x10^3/uL (0.3-0.8); MONOCYTES % (AUTO) 13.4 % (0.0-13.0); NEUTROPHILS # (AUTO) 2.2 x10^3/uL (2.2-4.8); NEUTROPHILS % (AUTO) 54.3 % (42.0-75.0); PLATELET COUNT 134 X10^3/uL (150.0-450.0); RED CELL DISTRIBUTION WIDTH 15.4 % (11.6-16.5); WHITE BLOOD COUNT 4.1 X10^3/uL (3.6-10.0)
[2021-06-18 06:29] LABS: ALANINE AMINOTRANSFERASE 19 Units/L (12-78); ALBUMIN 2.9 g/dL (3.4-5.0); ALKALINE PHOSPHATASE 69 Units/L (46-116); ASPARTATE AMINO TRANSFERASE 11 Units/L (15-37); BLOOD UREA NITROGEN 14 mg/dL (7-18); CALCIUM 8.7 mg/dL (8.5-10.1); CHLORIDE 106 mmol/L (98-107); COR CA(FOR HYPOALB) 9.6 mg/dL (8.5-10.1); COR NA(FOR HYPERGLY) 138 mmol/L (136-145); CREATINE KINASE 33 Units/L (39-308); CREATINE KINASE MB < 1.0 ng/mL (0-4.0); CREATININE 1.26 mg/dL (0.70-1.30); MAGNESIUM 1.8 mg/dL (1.7-2.9); SODIUM 138 mmol/L (136-145); TOTAL PROTEIN 5.7 g/dL (6.4-8.2); TROPONIN I < 0.02 ng/mL (0-1.5); eGFR NON BLACK RACES > 60 (>60)
[2021-06-18 12:13] VITALS: BP 135/75
--- NOTE | 2021-06-18 13:09 | DR.H&P ---
H&P - History & Physical for Day of: H&P Date: 06/17/21 - Chief Complaint Chief Complaint: lethargic, steady, increased ams per spouse - History of Present Illness History of Present Illness: PT IS 56 WM ER ADMISSION WITH SPOUSE, WEL[employer] MACHINE, [place] PT WAS LETHARGIC AND UNSTEADY ON HIS FEET. 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 PT HAS PMH OF TRAUMATIC BRAIN INJURY REQUIRING 24 HR ASSISTANCE AND RECENTLY TREATED FOR ASPIRATION PNEUMONIA IN [facility] BY DR CHO. PT HAS BEEN ON PO BACTRIM X [address] PT [address] HEAD IN ER WITHOUT ACUTE CVA. PT ADMITTED FOR TREATMENT AND EVALUATION OF ACUTE ILLNESS. - Past Medical History Past Medical History: Hypertension, Dyslipidemia, Diabetes, Depression Additional Medical History: Traumatic Brain Injury 2015, Muscle Weakness, Chronic Back Pain, Left sided weakness, Chronic Neck Pain, Chronic Knee Pain, ADD - Past Surgical History Surgical History: Ortho Surgery Additional Surgical History: Left knee surgery, Back surgery, Hernia Repair, prior tracheostomy and peg tube with brain injury - Family History Family Medical History: Coronary Artery Disease - Social History Does patient currently use any type of tobacco product: No Have you used tobacco products in the last 12 months: No Type of Tobacco Use: None Does any household member use tobacco: No Alcohol Use: None Drug Use: None - Medications Home Medications: adhesive tape Allergy (Verified 08/15/19 14:37) CONTINUE taking the following medications fluoxetine 10 mg PO DAILY 06/17/21 [History] medroxyprogesterone 10 mg PO DAILY 06/17/21 [History] metformin 1,000 mg PO BID 06/17/21 [History] sulfamethoxazole-trimethoprim 1 tab PO HS 06/17/21 [History] trazodone 100 mg PO HS 06/17/21 [History] valproic acid 500 mg PO BID 06/17/21 [History] amlodipine [Norvasc] 5 mg PO DAILY 06/18/21 [History] - Review of Systems Constitutional: Weakness. denies: Fever, Chills Eyes: No Symptoms Reported ENT: No Symptoms Reported Respiratory: Cough (MILD) Cardiovascular: No Symptoms Reported Gastrointestinal: No Symptoms Reported Genitourinary: No Symptoms Reported Musculoskeletal: No Symptoms Reported Skin: No Symptoms Reported Neurological: Weakness, Confusion - Physical Exam Vital Signs: Temperature 97.9 F Pulse Rate [Right Brachial] 78 Pulse Rate [Apical] 74 Pulse Rate 95 Respiratory Rate 20 Blood Pressure [Right Arm] 135/75 Blood Pressure 122/79 O2 Sat by Pulse Oximetry 96 Oriented: Person Eyes: Normal Ear: Normal Nose: Normal Throat: Normal Respiratory: RLL Diminished, LLL Diminished Cardiovascular: Normal : Normal Auscultation: Bowel Sounds: Normal Palpation: Normal Tenderness: Normal Skin: Decreased Turgur. negative: Wound, Bruising Musculoskeletal: Motor Deficit Psychiatric: Normal Mood Description: Calm Speech Pattern: Appropriate (CHRONIC LIMITED VERBAL RESPONSES, NODS YES AND NO A PPROPRIATE) - Assessment/Plan (1) Altered mental status Qualifiers: Altered mental status type: coma Coma depth: [place] coma 13-15 Coma timing: at arrival to emergency department Qualified Code(s): R40.2412 - [place] coma scale score 13-15, at arrival to emergency department Status: Acute Plan: CT HEAD ON ADMISSION IN ER. CXR, CE AND EKG. VERIFY HOME MEDICATION. GENTLE IV HYDRATION. RESP THERAPY (2) History of traumatic brain injury Status: Chronic (3) GERD (gastroesophageal reflux disease) Qualifiers: Esophagitis presence: esophagitis presence not specified Qualified Code(s): K21.9 - Gastro-esophageal reflux disease without esophagitis Status: Chronic (4) Arthritis Status: Chronic (5) Depression Qualifiers: Depression Type: major depressive disorder Major depression recurrence: single episode Active/Remission status: in remission of unspecified degree Qualified Code(s): F32.5 - Major depressive disorder, single episode, in full remission Status: Chronic (6) Hypertension Status: Chronic - Allergies Allergies/Adverse Reactions: Allergies Allergy/AdvReac Type Severity Reaction Status Date / Time adhesive tape Allergy Verified 08/15/19 14:37
[2021-06-18] MEDS ORDERED: SNACK - Diabetic Appropriate PO SCH (20:00)
== END 2021-06-18 15:40 | disposition home or self-care (01) ==
LOC: MED/SURG 15:04 → ER 15:04 → MED/SURG 23:16
PROVIDERS: ADMIT Internal Medicine; ATTEND Internal Medicine
DX: E11.65 Type 2 diabetes mellitus with hyperglycemia; Z87.820 Personal history of traumatic brain injury; M19.90 Unspecified osteoarthritis, unspecified site; E78.2 Mixed hyperlipidemia; Z20.822 Contact with and (suspected) exposure to COVID-19; R41.82 Altered mental status, unspecified; I10 Essential (primary) hypertension; F32.5 Major depressive disorder, single episode, in full remission; K21.9 Gastro-esophageal reflux disease without esophagitis; R94.31 Abnormal electrocardiogram [ECG] [EKG]; R53.1 Weakness; R42 Dizziness and giddiness

== ENCOUNTER 2022-12-06 12:44 | Observation (INO) ==
--- NOTE | 2022-12-06 12:56 | DR.CP ---
HPI Time Seen Time Seen by Provider: 12/06/22 12:55 Complaint Chief Complaint Doctor Comments: Patient presents from home with coffee ground appearing emesi x 2 days. has given antacids for it but patient has not had relief. Patient began to have palpitations,chest pain,epigastric pain today.Dawna ent has h/o UGI,GERD,ANKUR,Hypomagnesemia. Patient denies:syncope,chest pain,fever. PMH PMH Past Medical History: Diabetes and Hypertension Past Surgical History: Yes Surgical History: Ortho Surgery Family History Family Medical History: Diabetes Mellitus and Hypertension Social History Do you use any recreational Drugs:: No ROS Review of Systems Constitutional: Malaise and Weakness Eyes: No Symptoms Reported ENTM: No Symptoms Reported Respiratoy: No Symptoms Reported Cardiovascular: Chest Pain and Palpitations Gastrointestinal/Abdominal: Nausea and Vomiting (coffee colored emesis) Genitourinary: No Symptoms Reported Neurological: No Symptoms Reported; negative Headache, Numbness, Paresthesia or Tremors Musculoskeletal: No Symptoms Reported Integumentary: No Symptoms Reported Hematologic/Lymphatic: No Symptoms Reported Endocrine: No Symptoms Reported Psychiatric: No Symptoms Reported All Other Systems: Reviewed and Negative PE Vitals Vitals: Vital Signs Pulse Rate 96 Pulse Rate 95 Pulse Rate 93 Pulse Rate 91 Pulse Rate 90 Pulse Rate 119 Pulse Rate 119 Pulse Rate 121 Pulse Rate 123 Pulse Rate 122 Respiratory Rate 18 Respiratory Rate 18 Respiratory Rate 18 Respiratory Rate 20 Respiratory Rate 20 Respiratory Rate 23 Respiratory Rate 21 Respiratory Rate 28 Respiratory Rate 21 Respiratory Rate 24 Blood Pressure 124/76 Blood Pressure 124/76 O2 Sat by Pulse Oximetry 95 O2 Sat by Pulse Oximetry 94 O2 Sat by Pulse Oximetry 94 O2 Sat by Pulse Oximetry 94 O2 Sat by Pulse Oximetry 96 O2 Sat by Pulse Oximetry 95 O2 Sat by Pulse Oximetry 95 O2 Sat by Pulse Oximetry 96 O2 Sat by Pulse Oximetry 95 O2 Sat by Pulse Oximetry 95 General Limitations: No Limitations General Appearance: Alert and In No Apparent Distress Head Head Exam: Normal Inspection Eyes Eye exam: Normal Appearance ENT ENT Exam: Normal Exam Chest Chest Inspection: Normal Inspection Respiratory Respiratory Exam: Normal Lung Sounds Bilat Respiratory Exam: Bilateral: Clear to Auscultation Cardiovascular Cardiovascular Exam: Tachycardia (wide complex tachycardia 120's) Pulse: Normal Edema: Normal Abdominal Exam Abdominal Exam: Normal Inspection, Soft, Tenderness (epigastrium) and Hypoactive Bowel Sounds Abdominal Tenderness: Epigastrium Extremities Extremities Exam: Normal Inspection Back Back Exam: Normal Inspection Neurologic Neurological Exam: Alert and Oriented X3 Psychiatric Psychiatric Exam: Normal Affect and Normal Mood Skin Skin Exam: Warm, Dry, Intact and Normal Color MDM Differential Diagnosis Differential Diagnosis: Chest Wall Pain (OTHER: GI bleed,electrolyte abnormaLity), Cholelithasis, Esophageal Reflux/Spasm and Myocardial Infarction COURSE Treatment Treatment: 12:55 Patient was examined, iv access initiated, labs drawn 12:57 Monitor revealed a wide comlex tachycardiaEKG #1/#2 13:35 Lopressor iv 5mg given in the ED.14:04 EKG NSR rate 94. 14:[address] Lay's service. Dr Lay would like Dr Avila to be consulted 16:08Patient has been stable in ED. His abd/pelvis CT w/ contrast revealed hiatal hernia,moderate size debris filled stomach.Patient received protonix 80mg iv ,zofran 4mg iv and reglan 10mg iv for nausea ROR Labs Reviewed Laboratory Results Reviewed?: Yes Result Diagrams: 12/06/22 13:08 12/06/22 13:08 Laboratory: WBC 15.2 X10^3/uL (3.6-10.0) H 12/06/22 13:08 RBC 4.92 X10^6/uL (4.7-6.0) 12/06/22 13:08 Hgb 14.6 g/dL (13.5-18.0) 12/06/22 13:08 Hct 43.1 % (42.0-54.0) 12/06/22 13:08 MCV 87.6 fL (80.0-100.0) 12/06/22 13:08 MCH 29.8 pg (27.0-34.0) 12/06/22 13:08 MCHC 34.0 g/dL (33.0-35.0) 12/06/22 13:08 RDW 14.2 % (11.6-16.5) 12/06/22 13:08 Plt Count 264 X10^3/uL (150.0-450.0) 12/06/22 13:08 MPV 9.1 fL (7.4-11.0) 12/06/22 13:08 Neut % (Auto) 83.6 % (42.0-75.0) H 12/06/22 13:08 Lymph % (Auto) 6.9 % (21.0-51.0) L 12/06/22 13:08 Todd % (Auto) 8.6 % (0.0-13.0) 12/06/22 13:08 Eos % (Auto) 0.2 % (0.9-2.9) L 12/06/22 13:08 Baso % (Auto) 0.7 % (0.2-1.0) 12/06/22 13:08 Neut # (Auto) 12.7 x10^3/uL (2.2-4.8) H 12/06/22 13:08 Lymph # (Auto) 1.0 X10^3/uL (1.3-2.9) L 12/06/22 13:08 Todd # (Auto) 1.3 x10^3/uL (0.3-0.8) H 12/06/22 13:08 Eos # (Auto) 0.0 x10^3/uL (0.0-0.2) 12/06/22 13:08 Baso # (Auto) 0.1 X10^3/uL (0.0-0.1) 12/06/22 13:08 Absolute Nucleated RBC 0.1 /100WBC 12/06/22 13:08 Sodium 136 mmol/L (136-145) 12/06/22 13:08 Corrected Sodium 143 mmol/L (136-145) 12/06/22 13:08 Potassium 4.8 mmol/L (3.5-5.1) 12/06/22 13:08 Chloride 100 mmol/L (98-107) 12/06/22 13:08 Carbon Dioxide 21.2 mmol/L (21-32) 12/06/22 13:08 BUN 42 mg/dL (7-18) H 12/06/22 13:08 Creatinine 1.63 mg/dL (0.70-1.30) H 12/06/22 13:08 Est GFR (MDRD) Af Amer 56 (>60) L 12/06/22 13:08 Est GFR (MDRD) Non-Af 47 (>60) L 12/06/22 13:08 Glucose 395 mg/dL (65-99) H 12/06/22 13:08 Lactic Acid 3.0 mmol/L (0.4-2.0) H 12/06/22 14:53 Calcium 8.9 mg/dL (8.5-10.1) 12/06/22 13:08 Corrected Calcium TNP 12/06/22 13:08 Magnesium 1.5 mg/dL (2.0-2.9) L 12/06/22 13:08 Total Bilirubin 0.60 mg/dL (0.2-1.0) 12/06/22 13:08 AST 7 Units/L (15-37) L 12/06/22 13:08 ALT 18 Units/L (12-78) 12/06/22 13:08 Alkaline Phosphatase 85 Units/L (46-116) 12/06/22 13:08 Creatine Kinase 84 Units/L (39-308) 12/06/22 13:08 Troponin I High Sens 25.6 ng/L (4.0-60.0) 12/06/22 13:08 C-Reactive Protein 16.40 mg/L (0-3.0) H 12/06/22 13:08 Total Protein 7.3 g/dL (6.4-8.2) 12/06/22 13:08 Albumin 4.0 g/dL (3.4-5.0) 12/06/22 13:08 Globulin 3.3 g/dL (2.5-4.5) 12/06/22 13:08 Albumin/Globulin Ratio 1.2 Ratio (1.1-2.1) 12/06/22 13:08 Amylase 25 Units/L (25-115) 12/06/22 13:08 Lipase 56 Units/L (73-393) L 12/06/22 13:08 Specimen Type Clean catch urine 12/06/22 14:43 Urine Color Yellow (YELLOW) 12/06/22 14:43 Urine Appearance Clear (CLEAR) 12/06/22 14:43 Urine pH 7.0 (5.0 - 8.0) 12/06/22 14:43 Ur Specific [place] 1.015 (1.000-1.030) 12/06/22 14:43 Urine Protein 1+ (NEGATIVE) 12/06/22 14:43 Urine Glucose (UA) 4+ (NEGATIVE) 12/06/22 14:43 Urine Ketones 2+ (NEGATIVE) 12/06/22 14:43 Urine Blood Negative (NEGATIVE) 12/06/22 14:43 Urine Nitrite Negative (NEGATIVE) 12/06/22 14:43 Urine Bilirubin Negative (NEGATIVE) 12/06/22 14:43 Urine Urobilinogen Normal (NORMAL) 12/06/22 14:43 Ur Leukocyte Esterase Negative (NEGATIVE) 12/06/22 14:43 Urine RBC None seen /HPF (0-3) 12/06/22 14:43 Urine WBC None seen /HPF (0-5) 12/06/22 14:43 Ur Squamous Epith Cells Rare /HPF (NEGATIVE) 12/06/22 14:43 Urine Bacteria Negative /HPF (NEGATIVE) 12/06/22 14:43 Ur Culture Indicated? No/not indicated 12/06/22 14:43 Urine Opiates Screen Negative (NEG=<300) 12/06/22 14:43 Urine Methadone Screen Negative (NEG=<300) 12/06/22 14:43 Ur Barbiturates Screen Negative (NEG=<200) 12/06/22 14:43 Ur Phencyclidine Scrn Negative (NEG=<25) 12/06/22 14:43 Ur Amphetamines Screen Negative (NEG=<1000) 12/06/22 14:43 U Benzodiazepines Scrn Negative (NEG=<200) 12/06/22 14:43 Urine Cocaine Screen Negative (NEG=<300) 12/06/22 14:43 U Marijuana (THC) Screen Negative (NEG=<50) 12/06/22 14:43 XRAY XRAY Interpreted by: Radiologist X-ray Results: HISTORY ABD PAIN STUDY ABDOMEN/PELVIS WITH CON COMPARISON CT abdomen pelvis 08/15/2019. Only the report is available at the time of this dictation (images not available). TECHNIQUE Multiple axial images of the abdomen and pelvis were obtained from the lung bases to the upper thighs after the administration of IV contrast. Dose reduction techniques including Automated Exposure Control (AEC) and adjustment of mA and kV were utilized. FINDINGS There is small hiatal hernia with mild dilatation of the distal esophagus. The heart is mildly enlarged. The lung bases are clear. The liver, gallbladder, spleen, and adrenal glands have a benign appearance. The pancreas is partially fatty replaced. No peripancreatic edema. The common duct measures 1.4 cm medial- lateral at its proximal extrahepatic aspect image 26 series 5. There is a diverticulum near the ampulla which may be causing ductal obstruction. The diverticulum measures approximately 2.2 x 1.6 cm image 40 series 3. There are calcifications at bilateral renal pelvis, favored to be vascular. No hydronephrosis. The urinary bladder appears benign. The prostate is normal in size. Small fat containing right inguinal hernia. Diverticulosis of the colon without evidence of diverticulitis. The appendix appears normal. Negative for bowel obstruction. The stomach is moderately distended and filled with debris. 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 Moderately atherosclerotic normal caliber abdominal aorta. No pathologic adenopathy. No free air, free fluid, or collection. Multiple chronic left cer vical rib fractures. Bilateral L3 pars defects with grade 1 anterolisthesis of L3-4. Severe degenerative disc disease at L3-4 and L5-S1. IMPRESSION Small hiatal hernia. Moderate sized debris-filled stomach. This could be incidental/idiopathic but gastric outlet obstruction or gastroparesis is not excluded. Dilated common duct measuring 1.4 cm proximally may be due to a duodenal diverticulum. Subcentimeter calcifications at bilateral renal pelves are favored to be vascular. Small fat containing right inguinal hernia. Chronic appearing dissection flaps in the common iliac arteries. Electronically signed by: Chandler Theodore (Dec 06, 2022 14:47:46) EKG Compared to prior EKG Dated: 12/06/22 Rate: 123 [place]: Normal Rhythm: PVCs Opioid Opioid Risk Tool Age (Nam box if 16-45): No History of Preadolescent Sexual Abuse: No Total: 0 Total Score Risk Category: Low Risk Copyright: Clif VIDAL predicting aberrant behaviors Discharge Plan Diagnosis Discharge Problem: Upper GI bleed, Hypomagnesemia Discharge Plan Patient Disposition: 09 ADMITTED INPATIENT Condition: Stable ADDITIONAL NOTES Additional Notes Additional Notes: EKG #2 13:26 RATE 121 Wide QRS Tachycardia AXIS NML EKG #3 14:04 RATE 94 NSR AXIS NEG
--- NOTE | 2022-12-06 12:59 | EKG ---
Test Reason : chest Pain Blood Pressure : */* mmHG Vent. Rate : 123 BPM Atrial Rate : * BPM P-R Int : * ms QRS Dur : 166 ms QT Int : 408 ms P-R-T Axes : * 34 265 degrees QTc Int : 584 ms Probable atrial flutter with 2:1 AV block Nonspecific intraventricular block Lateral infarct , age undetermined Abnormal ECG When compared with ECG of 05-JUN-2022 18:26, Wide QRS tachycardia has replaced Sinus rhythm Confirmed by Pantera Good (4) on 12/07/2022 7:49:26 AM Referred By: Confirmed By: Pantera Good
[2022-12-06] MEDS ORDERED: NS 1,000 ML IV 1,000 ML IV ONE (13:03)
[2022-12-06] MEDS ORDERED: ASPIRIN PO ONE (13:12)
[2022-12-06] MEDS ORDERED: PROTONIX INJ 40 MG VIAL IVP ONE (13:12)
[2022-12-06] MEDS ORDERED: PROTONIX INJ 40 MG VIAL ONE (13:17)
[2022-12-06] MEDS ORDERED: NS 1,000 ML IV 1,000 ML ONE (13:17)
[2022-12-06] MEDS ORDERED: NS 100 ML IV 100 ML ONE (13:26)
[2022-12-06] MEDS ORDERED: OMNIPAQUE 350 mg/mL 100 mL BTL 100 ML ONE (13:26)
[2022-12-06] MEDS ORDERED: ZOFRAN INJ 4 MG VIAL ONE (13:29)
[2022-12-06] MEDS ORDERED: LOPRESSOR INJ 5 MG AMP ONE (13:35)
[2022-12-06] MEDS ORDERED: ZOFRAN INJ 4 MG VIAL IVP ONE (13:35)
[2022-12-06] MEDS ORDERED: LOPRESSOR INJ 5 MG AMP IVP ONE (13:35)
[2022-12-06 13:36] LABS: BASOPHILS # (AUTO) 0.1 X10^3/uL (0.0-0.1); BASOPHILS % (AUTO) 0.7 % (0.2-1.0); EOSINOPHILS % (AUTO) 0.2 % (0.9-2.9); HEMATOCRIT 43.1 % (42.0-54.0); HEMOGLOBIN 14.6 g/dL (13.5-18.0); LYMPHOCYTES % (AUTO) 6.9 % (21.0-51.0); MEAN CORPUSCULAR HEMOGLOBIN 29.8 pg (27.0-34.0); MEAN CORPUSCULAR VOLUME 87.6 fL (80.0-100.0); MEAN PLATELET VOLUME 9.1 fL (7.4-11.0); MONOCYTES # (AUTO) 1.3 x10^3/uL (0.3-0.8); MONOCYTES % (AUTO) 8.6 % (0.0-13.0); NEUTROPHILS # (AUTO) 12.7 x10^3/uL (2.2-4.8); NEUTROPHILS % (AUTO) 83.6 % (42.0-75.0); PLATELET COUNT 264 X10^3/uL (150.0-450.0); RED BLOOD COUNT 4.92 X10^6/uL (4.7-6.0); RED CELL DISTRIBUTION WIDTH 14.2 % (11.6-16.5); WHITE BLOOD COUNT 15.2 X10^3/uL (3.6-10.0)
--- NOTE | 2022-12-06 13:41 | EKG ---
Test Reason : palpitations Blood Pressure : */* mmHG Vent. Rate : 121 BPM Atrial Rate : * BPM P-R Int : * ms QRS Dur : 166 ms QT Int : 408 ms P-R-T Axes : * 26 240 degrees QTc Int : 579 ms Atrial flutter with 2:1 block Left bundle branch block Abnormal ECG When compared with ECG of 06-DEC-2022 12:57, (Unconfirmed) No significant change was found Confirmed by Pantera Good (4) on 12/07/2022 7:48:37 AM Referred By: Confirmed By: Pantera Good
[2022-12-06 13:55] LABS: LACTIC ACID 3.3 mmol/L (0.4-2.0)
[2022-12-06] MEDS ORDERED: REGLAN INJ 10 MG VIAL IVP ONE (13:57)
[2022-12-06 13:58] LABS: ALANINE AMINOTRANSFERASE 18 Units/L (12-78); ALKALINE PHOSPHATASE 85 Units/L (46-116); AMYLASE 25 Units/L (25-115); ASPARTATE AMINO TRANSFERASE 7 Units/L (15-37); BLOOD UREA NITROGEN 42 mg/dL (7-18); CALCIUM 8.9 mg/dL (8.5-10.1); CARBON DIOXIDE 21.2 mmol/L (21-32); CHLORIDE 100 mmol/L (98-107); COR NA(FOR HYPERGLY) 143 mmol/L (136-145); CREATINE KINASE 84 Units/L (39-308); CREATININE 1.63 mg/dL (0.70-1.30); GLUCOSE 395 mg/dL (65-99); LIPASE 56 Units/L (73-393); POTASSIUM 4.8 mmol/L (3.5-5.1); SODIUM 136 mmol/L (136-145); TOTAL PROTEIN 7.3 g/dL (6.4-8.2); eGFR NON BLACK RACES 47 (>60)
[2022-12-06] MEDS ORDERED: REGLAN INJ 10 MG VIAL ONE (13:58)
[2022-12-06 14:04] LABS: MAGNESIUM 1.5 mg/dL (2.0-2.9)
--- NOTE | 2022-12-06 14:06 | EKG ---
Test Reason : rhythm change after meds Blood Pressure : */* mmHG Vent. Rate : 94 BPM Atrial Rate : 94 BPM P-R Int : 196 ms QRS Dur : 138 ms QT Int : 406 ms P-R-T Axes : 36 -65 97 degrees QTc Int : 507 ms Normal sinus rhythm Left axis deviation Nonspecific intraventricular block Minimal voltage criteria for LVH, may be normal variant ( Hira product ) T wave abnormality, consider lateral ischemia Abnormal ECG When compared with ECG of 06-DEC-2022 13:26, (Unconfirmed) Sinus rhythm has replaced Wide QRS tachycardia Confirmed by Pantera Good (4) on 12/07/2022 7:47:58 AM Referred By: Confirmed By: Pantera Good
[2022-12-06] MEDS ORDERED: MAGNESIUM SULFATE 1 GRAM/100 mL PREMIX 1 G/100 ML BAG IV ONE ×4 (14:12→15:49)
--- NOTE | 2022-12-06 14:49 | CT ---
HISTORYABD PAINSTUDYABDOMEN/PELVIS WITH CONCOMPARISONCT abdomen pelvis 08/15/2019. Only the report is available at the time of this dictation (images not available).TECHNIQUEMultiple axial images of the abdomen and pelvis were obtained from the lung bases to the upper thighs after the administration of IV contrast. Dose reduction techniques including Automated Exposure Control (AEC) and adjustment of mA and kV were utilized.FINDINGSThere is small hiatal hernia with mild dilatation of the distal esophagus. The heart is mildly enlarged. The lung bases are clear. The liver, gallbladder, spleen, and adrenal glands have a benign appearance. The pancreas is partially fatty replaced. No peripancreatic edema. The common duct measures 1.4 cm medial-lateral at its proximal extrahepatic aspect image 26 series 5. There is a diverticulum near the ampulla which may be causing ductal obstruction. The diverticulum measures approximately 2.2 x 1.6 cm image 40 series 3. There are calcifications at bilateral renal pelvis, favored to be vascular. No hydronephrosis. The urinary bladder appears benign. The prostate is normal in size. Small fat containing right inguinal hernia. Diverticulosis of the colon without evidence of diverticulitis. The appendix appears normal. Negative for bowel obstruction. The stomach is moderately distended and filled with debris. 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 Moderately atherosclerotic normal caliber abdominal aorta. No pathologic adenopathy. No free air, free fluid, or collection. Multiple chronic left cervical rib fractures. Bilateral L3 pars defects with grade 1 anterolisthesis of L3-4. Severe degenerative disc disease at L3-4 and L5-S1.IMPRESSIONSmall hiatal hernia. Moderate sized debris-filled stomach. This could be incidental/idiopathic but gastric outlet obstruction or gastroparesis is not excluded.Dilated common duct measuring 1.4 cm proximally may be due to a duodenal diverticulum.Subcentimeter calcifications at bilateral renal pelves are favored to be vascular.Small fat containing right inguinal hernia.Chronic appearing dissection flaps in the common iliac arteries.Electronically signed by: Chandler Theodore (Dec 06, 2022 14:47:46)
[2022-12-06 14:58] LABS: BILIRUBIN,URINE NEGATIVE (NEGATIVE); BLOOD/HEMOGLOBIN,URINE NEGATIVE (NEGATIVE); GLUCOSE, URINE 4+ (NEGATIVE); KETONES,URINE 2+ (NEGATIVE); LEUKOCYTE ESTERASE ,URINE NEGATIVE (NEGATIVE); NITRITES,URINE NEGATIVE (NEGATIVE); PROTEIN,URINE 1+ (NEGATIVE); UROBILINOGEN,URINE NORMAL (NORMAL)
[2022-12-06 15:15] LABS: APPEARANCE,URINE CLEAR (CLEAR); COLOR,URINE YELLOW (YELLOW)
[2022-12-06 15:16] LABS: BACTERIA,URINE NEGATIVE /HPF (NEGATIVE); RBC,URINE NONE SEEN /HPF (0-3); SQUAMOUS EPITHELIAL CELL,UR RARE /HPF (NEGATIVE)
[2022-12-06] MEDS ORDERED: NovoLIN R (or HumuLIN R) ONE ×2 (15:56→16:02)
[2022-12-06] MEDS ORDERED: NovoLIN R (or HumuLIN R) IV STA (15:56)
[2022-12-06 17:36] VITALS: BMI 29.2
[2022-12-06] MEDS ORDERED: NovoLIN R (or HumuLIN R) SC PRN (20:18)
[2022-12-06] MEDS: VALPROIC ACID 250 MG PO SCH (21:05)
[2022-12-06] MEDS: LIPITOR TAB 20 MG PO SCH (21:24)
[2022-12-06] MEDS: DESYREL PO SCH (21:24)
[2022-12-06] MEDS: MELATONIN PO SCH (21:24)
[2022-12-06] MEDS: PROTONIX INJ 40 MG VIAL IVP SCH (21:24)
[2022-12-06] MEDS: ARICEPT TAB 10 MG PO SCH (21:24)
[2022-12-06] MEDS: XANAX PO PRN (21:25)
[2022-12-06] MEDS: OXYBUTYNIN CHLORIDE ER PO SCH (21:25)
[2022-12-06] MEDS ORDERED: NovoLIN R (or HumuLIN R) SUBCUT ONE (22:12)
[2022-12-07 05:27] LABS: BASOPHILS # (AUTO) 0.1 X10^3/uL (0.0-0.1); BASOPHILS % (AUTO) 0.5 % (0.2-1.0); EOSINOPHILS % (AUTO) 0.4 % (0.9-2.9); HEMATOCRIT 32.7 % (42.0-54.0); LYMPHOCYTES # (AUTO) 1.8 X10^3/uL (1.3-2.9); LYMPHOCYTES % (AUTO) 15.1 % (21.0-51.0); MEAN CORPUSCULAR HEMOGLOBIN 29.9 pg (27.0-34.0); MEAN CORPUSCULAR HGB CONC 34.2 g/dL (33.0-35.0); MEAN CORPUSCULAR VOLUME 87.4 fL (80.0-100.0); MEAN PLATELET VOLUME 9.3 fL (7.4-11.0); MONOCYTES # (AUTO) 1.4 x10^3/uL (0.3-0.8); MONOCYTES % (AUTO) 12.1 % (0.0-13.0); NEUTROPHILS # (AUTO) 8.4 x10^3/uL (2.2-4.8); NEUTROPHILS % (AUTO) 71.9 % (42.0-75.0); PLATELET COUNT 212 X10^3/uL (150.0-450.0); RED BLOOD COUNT 3.74 X10^6/uL (4.7-6.0); RED CELL DISTRIBUTION WIDTH 14.6 % (11.6-16.5); WHITE BLOOD COUNT 11.7 X10^3/uL (3.6-10.0)
[2022-12-07 05:29] LABS: ALANINE AMINOTRANSFERASE 16 Units/L (12-78); ALBUMIN 3.1 g/dL (3.4-5.0); ALKALINE PHOSPHATASE 61 Units/L (46-116); ASPARTATE AMINO TRANSFERASE 6 Units/L (15-37); BLOOD UREA NITROGEN 58 mg/dL (7-18); CALCIUM 8.3 mg/dL (8.5-10.1); CARBON DIOXIDE 20.3 mmol/L (21-32); CHLORIDE 105 mmol/L (98-107); COR NA(FOR HYPERGLY) 144 mmol/L (136-145); CREATININE 1.24 mg/dL (0.70-1.30); GLUCOSE 319 mg/dL (65-99); POTASSIUM 4.7 mmol/L (3.5-5.1); SODIUM 139 mmol/L (136-145); TOTAL PROTEIN 5.9 g/dL (6.4-8.2); eGFR NON BLACK RACES > 60 (>60)
[2022-12-07 05:32] LABS: HEMOGLOBIN 11.2 g/dL (13.5-18.0)
[2022-12-07] MEDS ORDERED: AMANTADINE HCL 100 MG CAP PO SCH (08:00)
[2022-12-07] MEDS: PROTONIX INJ 40 MG VIAL IVP SCH ×2 (09:27→21:21)
[2022-12-07] MEDS: NS 1,000 ML IV 1,000 ML IV SCH ×2 (09:28→18:15)
[2022-12-07] MEDS ORDERED: XYLOCAINE 2 % (PLAIN) ONE (10:59)
[2022-12-07] MEDS ORDERED: DIPRIVAN VIAL 20 ML ONE (11:04)
[2022-12-07] MEDS ORDERED: PEPCID 20 MG VIAL ONE (11:04)
[2022-12-07] MEDS: METHYLPHENIDATE HCL 10 MG PO SCH (12:06)
[2022-12-07] MEDS: [UNRECOGNIZED DRUG - OTHER] PO SCH (12:06)
[2022-12-07] MEDS: PROVERA PO SCH (12:08)
[2022-12-07] MEDS: PROzac PO SCH (12:08)
[2022-12-07] MEDS: VALPROIC ACID 250 MG PO SCH ×2 (12:09→21:30)
[2022-12-07] MEDS: VITAMIN D3 25 mcg (1,000 UNITS) PO SCH (12:10)
[2022-12-07] MEDS: VITAMIN C PO SCH (12:10)
[2022-12-07] MEDS: PATIENT'S HOME MEDICATION PO SCH (12:11)
--- NOTE | 2022-12-07 12:25 | DR.H&P ---
H&P History & Physical for Day of: H&P Date: 12/07/22 Chief Complaint Chief Complaint: Nausea, Vomiting Abdominal pain Allergies Allergies Allergy/AdvReac Type Severity Reaction Status Date / Time adhesive tape Allergy Verified 08/15/19 14:37 History of Present Illness History of Present Illness: Pt is a 57 year old male past medical history of TBI, DMT2, Chronic pain syndrome, presenting with abdominal pain, nausea, and vomiting. It was stated that he was having "coffee ground emesis" for the past 2 days. Labs/imaging: Wbc 11.7, Hgb 14.6>11.2, Plt 212, Na 139, K 4.7, Creatinine 1.24, Glucose 319, LA 2.1, UA negative, CT abdomen and pelvis was obtained that revealed: Small hiatal hernia. Moderate sized debris-filled stomach. This could be incidental/ idiopathic but gastric outlet obstruction or gastroparesis is not excluded. Pt was admitted for possible GI bleed. Will start on IVF NS@125ml/h, keep NPO, PPI with IV protonix. General surgery consulted-Dr Avila, will follow up recommendations. Trend hgb. Continue to closely monitor and follow up labs/imaging. Past Medical History Past Medical History: Diabetes and Hypertension Additional Medical History: Traumatic Brain Injury 2015, Muscle Weakness, Chronic Back Pain, Left sided weakness, Chronic Neck Pain, Chronic Knee Pain, ADD Past Surgical History Surgical History: Neurosurgery Additional Surgical History: Left knee surgery, Back surgery, Hernia Repair, prior tracheostomy and peg tube with brain injury Family History Family Medical History: Hypertension Social History Does patient currently use any type of tobacco product: No Have you used tobacco products in the last 12 months: No Type of Tobacco Use: None Does any household member use tobacco: No Alcohol Use: None Drug Use: None Medications Home Medications: Home Medications Medication Instructions Recorded Confirmed Type amantadine HCl 100 mg capsule 200 mg PO 0800,1200 01/18/16 12/06/22 History methylphenidate HCl 10 mg biphasic 10 mg PO BID 01/18/16 12/06/22 History 50-50 capsule,extended release (Ritalin LA) pantoprazole 40 mg tablet,delayed 40 mg PO DAILY 01/18/16 12/06/22 History release melatonin 5 mg tablet 5 mg PO HS 04/22/17 12/06/22 History alprazolam 1 mg tablet (Xanax) 1 mg PO HS 04/03/18 12/06/22 History donepezil 10 mg tablet (Aricept) 10 mg PO HS 03/20/19 12/06/22 History fluoxetine 10 mg capsule 10 mg PO DAILY 06/17/21 12/06/22 History medroxyprogesterone 10 mg tablet 10 mg PO DAILY 06/17/21 12/06/22 History trazodone 100 mg tablet 100 mg PO HS 06/17/21 12/06/22 History valproic acid 250 mg capsule 500 mg PO BID 06/17/21 12/06/22 History ascorbic acid (vitamin C) 500 mg 500 mg PO DAILY 01/14/22 12/06/22 History tablet (Vitamin C) aspirin 81 mg tablet,delayed 81 mg PO DAILY 01/14/22 12/06/22 History release oxybutynin chloride 10 mg 10 mg PO QPM bladder pain 01/14/22 12/06/22 History tablet,extended release 24 hr amlodipine 2.5 mg tablet 2.5 mg PO QDAY 12/06/22 12/06/22 History cholecalciferol (vitamin D3) 25 25 mcg PO QDAY 12/06/22 12/06/22 History mcg (1,000 unit) tablet (Vitamin D3) imipramine HCl 25 mg tablet 25 mg PO QPM 12/06/22 12/06/22 History ipratropium 0.5 mg-albuterol 3 mg 1 vial inhalation TID 12/06/22 12/06/22 History (2.5 mg base)/3 mL nebulization soln levocetirizine 5 mg tablet 5 mg PO HS 12/06/22 12/06/22 History Labs Result Diagrams: 12/07/22 04:35 12/07/22 04:35 Labs: Laboratory WBC 11.7 X10^3/uL (3.6-10.0) H 12/07/22 04:35 RBC 3.74 X10^6/uL (4.7-6.0) L 12/07/22 04:35 Hgb 11.2 g/dL (13.5-18.0) L D 12/07/22 04:35 Hct 32.7 % (42.0-54.0) L 12/07/22 04:35 MCV 87.4 fL (80.0-100.0) 12/07/22 04:35 MCH 29.9 pg (27.0-34.0) 12/07/22 04:35 MCHC 34.2 g/dL (33.0-35.0) 12/07/22 04:35 RDW 14.6 % (11.6-16.5) 12/07/22 04:35 Plt Count 212 X10^3/uL (150.0-450.0) 12/07/22 04:35 MPV 9.3 fL (7.4-11.0) 12/07/22 04:35 Neut % (Auto) 71.9 % (42.0-75.0) 12/07/22 04:35 Lymph % (Auto) 15.1 % (21.0-51.0) L 12/07/22 04:35 [place] % (Auto) 12.1 % (0.0-13.0) 12/07/22 04:35 Eos % (Auto) 0.4 % (0.9-2.9) L 12/07/22 04:35 Baso % (Auto) 0.5 % (0.2-1.0) 12/07/22 04:35 Neut # (Auto) 8.4 x10^3/uL (2.2-4.8) H 12/07/22 04:35 Lymph # (Auto) 1.8 X10^3/uL (1.3-2.9) 12/07/22 04:35 [place] # (Auto) 1.4 x10^3/uL (0.3-0.8) H 12/07/22 04:35 Eos # (Auto) 0.0 x10^3/uL (0.0-0.2) 12/07/22 04:35 Baso # (Auto) 0.1 X10^3/uL (0.0-0.1) 12/07/22 04:35 Absolute Nucleated RBC 0.0 /100WBC 12/07/22 04:35 Sodium 139 mmol/L (136-145) 12/07/22 04:35 Corrected Sodium 144 mmol/L (136-145) 12/07/22 04:35 Potassium 4.7 mmol/L (3.5-5.1) 12/07/22 04:35 Chloride 105 mmol/L (98-107) 12/07/22 04:35 Carbon Dioxide 20.3 mmol/L (21-32) L 12/07/22 04:35 BUN 58 mg/dL (7-18) H 12/07/22 04:35 Creatinine 1.24 mg/dL (0.70-1.30) 12/07/22 04:35 Est GFR (MDRD) Af Amer > 60 (>60) 12/07/22 04:35 Est GFR (MDRD) Non-Af > 60 (>60) 12/07/22 04:35 Glucose 319 mg/dL (65-99) H 12/07/22 04:35 POC Glucose (mg/dL) 280 mg/dL (65-99) H 12/07/22 05:16 Lactic Acid 2.1 mmol/L (0.4-2.0) H 12/07/22 04:35 Calcium 8.3 mg/dL (8.5-10.1) L 12/07/22 04:35 Corrected Calcium 9.0 mg/dL (8.5-10.1) 12/07/22 04:35 Magnesium 1.5 mg/dL (2.0-2.9) L 12/06/22 13:08 Total Bilirubin 0.40 mg/dL (0.2-1.0) 12/07/22 04:35 AST 6 Units/L (15-37) L 12/07/22 04:35 ALT 16 Units/L (12-78) 12/07/22 04:35 Alkaline Phosphatase 61 Units/L (46-116) 12/07/22 04:35 Creatine Kinase 84 Units/L (39-308) 12/06/22 13:08 Troponin I High Sens 25.6 ng/L (4.0-60.0) 12/06/22 13:08 C-Reactive Protein 16.40 mg/L (0-3.0) H 12/06/22 13:08 Total Protein 5.9 g/dL (6.4-8.2) L 12/07/22 04:35 Albumin 3.1 g/dL (3.4-5.0) L 12/07/22 04:35 Globulin 2.8 g/dL (2.5-4.5) 12/07/22 04:35 Albumin/Globulin Ratio 1.1 Ratio (1.1-2.1) 12/07/22 04:35 Amylase 25 Units/L (25-115) 12/06/22 13:08 Lipase 56 Units/L (73-393) L 12/06/22 13:08 Specimen Type Clean catch urine 12/06/22 14:43 Urine Color Yellow (YELLOW) 12/06/22 14:43 Urine Appearance Clear (CLEAR) 12/06/22 14:43 Urine pH 7.0 (5.0 - 8.0) 12/06/22 14:43 Ur Specific [place] 1.015 (1.000-1.030) 12/06/22 14:43 Urine Protein 1+ (NEGATIVE) 12/06/22 14:43 Urine Glucose (UA) 4+ (NEGATIVE) 12/06/22 14:43 Urine Ketones 2+ (NEGATIVE) 12/06/22 14:43 Urine Blood Negative (NEGATIVE) 12/06/22 14:43 Urine Nitrite Negative (NEGATIVE) 12/06/22 14:43 Urine Bilirubin Negative (NEGATIVE) 12/06/22 14:43 Urine Urobilinogen Normal (NORMAL) 12/06/22 14:43 Ur Leukocyte Esterase Negative (NEGATIVE) 12/06/22 14:43 Urine RBC None seen /HPF (0-3) 12/06/22 14:43 Urine WBC None seen /HPF (0-5) 12/06/22 14:43 Ur Squamous Epith Cells Rare /HPF (NEGATIVE) 12/06/22 14:43 Urine Bacteria Negative /HPF (NEGATIVE) 12/06/22 14:43 Ur Culture Indicated? No/not indicated 12/06/22 14:43 Urine Opiates Screen Negative (NEG=<300) 12/06/22 14:43 Urine Methadone Screen Negative (NEG=<300) 12/06/22 14:43 Ur Barbiturates Screen Negative (NEG=<200) 12/06/22 14:43 Ur Phencyclidine Scrn Negative (NEG=<25) 12/06/22 14:43 Ur Amphetamines Screen Negative (NEG=<1000) 12/06/22 14:43 U Benzodiazepines Scrn Negative (NEG=<200) 12/06/22 14:43 Urine Cocaine Screen Negative (NEG=<300) 12/06/22 14:43 U Marijuana (THC) Screen Negative (NEG=<50) 12/06/22 14:43 Review of Systems Constitutional: No Symptoms Reported Eyes: No Symptoms Reported ENT: No Symptoms Reported Respiratory: No Symptoms Reported Cardiovascular: No Symptoms Reported Gastrointestinal: Nausea, Vomiting and Abdominal Pain Genitourinary: No Symptoms Reported Musculoskeletal: No Symptoms Reported Skin: No Symptoms Reported Neurological: No Symptoms Reported Physical Exam Vital Signs: Vital Signs Temperature 98.6 F Pulse Rate [Right Radial] 115 Respiratory Rate 18 Blood Pressure [Right Arm] 120/71 O2 Sat by Pulse Oximetry 96 Oriented: Normal Eyes: Normal Ear: Normal Nose: Normal Throat: Normal Respiratory: Clear Throughout Cardiovascular: Normal : Normal Auscultation: Bowel Sounds: Normal Palpation: Normal Tenderness: Epigastric and Moderate Skin: Normal Musculoskeletal: Normal Psychiatric: Normal Mood Description: Calm and Appropriate Affect: Normal Speech Pattern: Clear and Appropriate Assessment/Plan (1) Upper GI bleed: Narrative Support Text: NPO, IVF, PPI, Surgery consulted. Status: Acute Review H&P Reviewed: Yes Patient was examined?: Yes
[2022-12-07] MEDS ORDERED: REGLAN INJ 10 MG VIAL ONE (13:11)
[2022-12-07] MEDS: REGLAN INJ 10 MG VIAL IVP SCH ×2 (13:22→21:22)
[2022-12-07] MEDS: NORVASC TAB 5 MG PO SCH (13:22)
--- NOTE | 2022-12-07 14:01 | RAD ---
HISTORYPOSSIBLE ASPIRATIONSTUDYCHEST, 1 VIEWCOMPARISONChest x-ray 06/27/2022FINDINGSThe heart is normal in size. The pulmonary vasculature is within normal limits. The lungs appear clear. No pneumothorax, pleural effusion, or focal consolidation. No acute osseous abnormality. Questionable small hiatal hernia. Tortuosity of the aorta.IMPRESSIONNo acute cardiopulmonary findings .Electronically signed by: Jorge Garcia (Dec 07, 2022 13:59:27)
[2022-12-07] MEDS: NovoLIN R (or HumuLIN R) SC PRN ×2 (16:45→21:45)
[2022-12-07] MEDS: ARICEPT TAB 10 MG PO SCH (21:19)
[2022-12-07] MEDS: DESYREL PO SCH (21:19)
[2022-12-07] MEDS: MAG-OX TAB PO SCH (21:20)
[2022-12-07] MEDS: LIPITOR TAB 20 MG PO SCH (21:20)
[2022-12-07] MEDS: OXYBUTYNIN CHLORIDE ER PO SCH (21:21)
[2022-12-07] MEDS: MELATONIN PO SCH (21:21)
[2022-12-07] MEDS: XANAX PO PRN (21:22)
[2022-12-08] MEDS: NS 1,000 ML IV 1,000 ML IV SCH ×2 (04:33→09:54)
[2022-12-08] MEDS: REGLAN INJ 10 MG VIAL IVP SCH (06:13)
[2022-12-08 06:16] LABS: BASOPHILS # (AUTO) 0.1 X10^3/uL (0.0-0.1); BASOPHILS % (AUTO) 0.7 % (0.2-1.0); EOSINOPHILS # (AUTO) 0.2 x10^3/uL (0.0-0.2); EOSINOPHILS % (AUTO) 2.7 % (0.9-2.9); LYMPHOCYTES # (AUTO) 1.7 X10^3/uL (1.3-2.9); LYMPHOCYTES % (AUTO) 22.4 % (21.0-51.0); MEAN CORPUSCULAR HEMOGLOBIN 30.6 pg (27.0-34.0); MEAN CORPUSCULAR HGB CONC 34.8 g/dL (33.0-35.0); MEAN CORPUSCULAR VOLUME 87.8 fL (80.0-100.0); MONOCYTES # (AUTO) 0.7 x10^3/uL (0.3-0.8); MONOCYTES % (AUTO) 9.7 % (0.0-13.0); NEUTROPHILS # (AUTO) 4.8 x10^3/uL (2.2-4.8); NEUTROPHILS % (AUTO) 64.5 % (42.0-75.0); PLATELET COUNT 148 X10^3/uL (150.0-450.0); RED BLOOD COUNT 2.96 X10^6/uL (4.7-6.0); RED CELL DISTRIBUTION WIDTH 14.8 % (11.6-16.5); WHITE BLOOD COUNT 7.4 X10^3/uL (3.6-10.0)
[2022-12-08 06:25] LABS: ALANINE AMINOTRANSFERASE 11 Units/L (12-78); ALBUMIN 2.6 g/dL (3.4-5.0); ALKALINE PHOSPHATASE 47 Units/L (46-116); ASPARTATE AMINO TRANSFERASE < 6 Units/L (15-37); BLOOD UREA NITROGEN 30 mg/dL (7-18); CARBON DIOXIDE 24.9 mmol/L (21-32); CHLORIDE 109 mmol/L (98-107); COR CA(FOR HYPOALB) 9.1 mg/dL (8.5-10.1); COR NA(FOR HYPERGLY) 146 mmol/L (136-145); CREATININE 1.05 mg/dL (0.70-1.30); GLUCOSE 226 mg/dL (65-99); MAGNESIUM 1.6 mg/dL (2.0-2.9); POTASSIUM 4.3 mmol/L (3.5-5.1); SODIUM 143 mmol/L (136-145); TOTAL PROTEIN 5.2 g/dL (6.4-8.2); eGFR NON BLACK RACES > 60 (>60)
[2022-12-08] MEDS: PROVERA PO SCH (09:21)
[2022-12-08] MEDS: VITAMIN C PO SCH (09:21)
[2022-12-08] MEDS: PROzac PO SCH (09:21)
[2022-12-08] MEDS: PROTONIX INJ 40 MG VIAL IVP SCH (09:21)
[2022-12-08] MEDS: VALPROIC ACID 250 MG PO SCH (09:22)
[2022-12-08] MEDS: PATIENT'S HOME MEDICATION PO SCH (09:31)
[2022-12-08] MEDS: METHYLPHENIDATE HCL 10 MG PO SCH (09:33)
[2022-12-08] MEDS: [UNRECOGNIZED DRUG - OTHER] PO SCH (09:33)
[2022-12-08] MEDS: MAGNESIUM SULFATE 1 GRAM/100 mL PREMIX 1 G/100 ML BAG IV SCH ×2 (09:40→11:19)
[2022-12-08] MEDS: VITAMIN D3 25 mcg (1,000 UNITS) PO SCH (09:49)
[2022-12-08] MEDS: MAG-OX TAB PO SCH (09:49)
[2022-12-08] MEDS: NORVASC TAB 5 MG PO SCH (09:50)
[2022-12-08 10:15] VITALS: RESP 20
[2022-12-08 13:21] VITALS: BP 131/60; PULSE 90; TEMP 98.6; O2SAT 94
== END 2022-12-08 13:16 | disposition home or self-care (01) ==
LOC: ER 12:44 → MED/SURG 12:44
PROVIDERS: ADMIT Family Medicine; ATTEND Family Medicine
DX: K31.84 Gastroparesis; I10 Essential (primary) hypertension; Z87.898 Personal history of other specified conditions; I48.92 Unspecified atrial flutter; K21.00 Gastro-esophageal reflux disease with esophagitis, without bleeding; E83.42 Hypomagnesemia; K92.2 Gastrointestinal hemorrhage, unspecified; E11.65 Type 2 diabetes mellitus with hyperglycemia; K92.1 Melena; R79.82 Elevated C-reactive protein (CRP)

== ENCOUNTER 2025-03-20 14:27 | Observation (INO) ==
--- NOTE | 2025-03-20 14:52 | EKG ---
Test Reason : sob, lethargic Blood Pressure : */* mmHG Vent. Rate : 99 BPM Atrial Rate : 44 BPM P-R Int : * ms QRS Dur : 182 ms QT Int : 426 ms P-R-T Axes : 8 -11 185 degrees QTc Int : 546 ms Normal sinus rhythm with boredrline first degree AV block Left bundle branch block Abnormal ECG When compared with ECG of 22-JUL-2023 02:24, QRS duration has increased Minimal criteria for Septal infarct are no longer present T wave inversion now evident in Inferior leads Confirmed by Titus Aponte MD ([id number]) on 03/21/2025 7:03:46 AM Referred By: Confirmed By: Titus Aponte MD
--- NOTE | 2025-03-20 14:58 | DR.GENAD ---
HPI Time Seen Time Seen by Provider: 03/20/25 14:30 Complaint/Symptoms Chief Complaint Doctors Comments: Old male with history TBI Significant side effects with decreased mentation and decreased ability to care for self. brought patient in for Fever onset this morning about 4 AM patient has a history of recurrent aspiration pneumonia secondary to his brain injury. reports no complaints of chest pain shortness of breath nausea vomiting diarrhea COVID-19 Coronavirus risk:travel/contact w/high risk person: No Has patient experienced Coronavirus symptoms: No PMH PMH Past Medical History: Depression, Diabetes, Dyslipidemia, GERD, Hypertension and Renal Disease Past Surgical History: Yes Surgical History: Neurosurgery and Ortho Surgery Family History Family Medical History: Diabetes Mellitus, Cancer, NM, Coronary Artery Disease, Heart Failure and Hypertension Social History Do you use any recreational Drugs:: No Travel Risk Coronavirus risk:travel/contact w/high risk person: No Has patient experienced Coronavirus symptoms: No ROS Review of Systems Constitutional: See HPI and Fever Eyes: No Symptoms Reported ENTM: No Symptoms Reported Respiratoy: No Symptoms Reported Cardiovascular: No Symptoms Reported Gastrointestinal/Abdominal: No Symptoms Reported Genitourinary: No Symptoms Reported Neurological: No Symptoms Reported Musculoskeletal: No Symptoms Reported Integumentary: No Symptoms Reported Hematologic/Lymphatic: No Symptoms Reported Endocrine: No Symptoms Reported Psychiatric: No Symptoms Reported All Other Systems: Reviewed and Negative PE Vital Signs Vitals: Vital Signs Temperature 98.5 F Pulse Rate 90 Pulse Rate 92 Pulse Rate 93 Pulse Rate 92 Pulse Rate 94 Pulse Rate 94 Pulse Rate 96 Pulse Rate 96 Pulse Rate 95 Pulse Rate 99 Pulse Rate 98 Pulse Rate 98 Respiratory Rate 24 Respiratory Rate 25 Respiratory Rate 24 Respiratory Rate 27 Respiratory Rate 35 Respiratory Rate 26 Respiratory Rate 24 Respiratory Rate 19 Respiratory Rate 25 Respiratory Rate 26 Respiratory Rate 26 Respiratory Rate 25 Blood Pressure 107/60 Blood Pressure 96/58 Blood Pressure 96/58 Blood Pressure 96/58 Blood Pressure 89/60 Blood Pressure 96/61 Blood Pressure 97/62 Blood Pressure 92/60 O2 Sat by Pulse Oximetry 95 O2 Sat by Pulse Oximetry 95 O2 Sat by Pulse Oximetry 95 O2 Sat by Pulse Oximetry 95 O2 Sat by Pulse Oximetry 95 O2 Sat by Pulse Oximetry 96 O2 Sat by Pulse Oximetry 93 O2 Sat by Pulse Oximetry 92 O2 Sat by Pulse Oximetry 93 O2 Sat by Pulse Oximetry 95 O2 Sat by Pulse Oximetry 94 O2 Sat by Pulse Oximetry 94 General Limitations: No Limitations General Appearance: Alert and In No Apparent Distress (Alert but not answering questionsPer normal state of cognition) Head Head Exam: Normal Inspection Eyes Eye exam: Normal Appearance ENT ENT Exam: Normal Exam External Ear Exam: Normal External Inspection TM/Canal Exam: Bilateral: Normal Nose Exam: Normal Nose Exam Mouth Exam: Normal Inspection Throat Exam: Normal Inspection Neck Neck Exam: Normal Inspection Chest Chest Inspection: Normal Inspection Respiratory Respiratory Exam: Normal Lung Sounds Bilat Respiratory Exam: Bilateral: Clear to Auscultation Cardiovascular Cardiovascular Exam: Regular Rate and Normal Rhythm Abdominal Exam Abdominal Exam: Normal Inspection, Normal Bowel Sounds and Soft Extremities Extremities Exam: Normal Inspection Back Back Exam: Normal Inspection Neurologic Neurological Exam: Alert and Oriented X3 Psychiatric Psychiatric Exam: Normal Affect and Normal Mood Skin Skin Exam: Warm, Dry, Intact and Normal Color COURSE Treatment Treatment: Discussed with patient and reviewed findings risk benefits options discussed in detail questions answered recommend admission. agrees. Discussed with Dr. Schneider who agrees to admission [facility]OR Labs Reviewed 03/20/25 14:58 03/20/25 14:58 Laboratory: WBC 11.4 X10^3/uL (3.6-10.0) H 03/20/25 14:58 RBC 4.29 X10^6/uL (4.7-6.0) L 03/20/25 14:58 Hgb 11.8 g/dL (13.5-18.0) L 03/20/25 14:58 Hct 36.0 % (42.0-54.0) L 03/20/25 14:58 MCV 83.7 fL (80.0-100.0) 03/20/25 14:58 MCH 27.5 pg (27.0-34.0) 03/20/25 14:58 MCHC 32.9 g/dL (33.0-35.0) L 03/20/25 14:58 RDW 17.0 % (11.6-16.5) H 03/20/25 14:58 Plt Count 168 X10^3/uL (150.0-450.0) 03/20/25 14:58 MPV 9.4 fL (7.4-11.0) 03/20/25 14:58 Neut % (Auto) 87.2 % (42.0-75.0) H 03/20/25 14:58 Lymph % (Auto) 5.0 % (21.0-51.0) L 03/20/25 14:58 [place] % (Auto) 7.4 % (0.0-13.0) 03/20/25 14:58 Eos % (Auto) 0.1 % (0.9-2.9) L 03/20/25 14:58 Baso % (Auto) 0.3 % (0.2-1.0) 03/20/25 14:58 Neut # (Auto) 9.9 x10^3/uL (2.2-4.8) H 03/20/25 14:58 Lymph # (Auto) 0.6 X10^3/uL (1.3-2.9) L 03/20/25 14:58 [place] # (Auto) 0.8 x10^3/uL (0.3-0.8) 03/20/25 14:58 Eos # (Auto) 0.0 x10^3/uL (0.0-0.2) 03/20/25 14:58 Baso # (Auto) 0.0 X10^3/uL (0.0-0.1) 03/20/25 14:58 Absolute Nucleated RBC 0.0 /100WBC 03/20/25 14:58 PT 13.8 SECONDS (11.8-14.3) 03/20/25 14:58 INR Target Range - 03/20/25 14:58 INR 1.05 (0.8-1.3) 03/20/25 14:58 APTT 33.7 SECONDS (22.9-36.5) 03/20/25 14:58 PTT Comment - 03/20/25 14:58 Sodium 138 mmol/L (136-145) 03/20/25 14:58 Corrected Sodium 141 mmol/L (136-145) 03/20/25 14:58 Potassium 3.8 mmol/L (3.5-5.1) 03/20/25 14:58 Chloride 102 mmol/L (98-107) 03/20/25 14:58 Carbon Dioxide 23.8 mmol/L (21-32) 03/20/25 14:58 BUN 16 mg/dL (7-18) 03/20/25 14:58 Creatinine 1.43 mg/dL (0.70-1.30) H 03/20/25 14:58 Est GFR (MDRD) Af Amer > 60 (>60) 03/20/25 14:58 Est GFR (MDRD) Non-Af 54 (>60) L 03/20/25 14:58 Glucose 239 mg/dL (65-99) H 03/20/25 14:58 Lactic Acid 4.7 mmol/L (0.4-2.0) H* 03/20/25 14:58 Calcium 8.6 mg/dL (8.5-10.1) 03/20/25 14:58 Corrected Calcium 9.2 mg/dL (8.5-10.1) 03/20/25 14:58 Total Bilirubin 0.50 mg/dL (0.2-1.0) 03/20/25 14:58 Total Bilirubin Cancelled 03/20/25 14:58 AST 11 Units/L (15-37) L 03/20/25 14:58 ALT < 6 Units/L (12-78) L 03/20/25 14:58 Alkaline Phosphatase 85 Units/L (46-116) 03/20/25 14:58 Total Protein 6.3 g/dL (6.4-8.2) L 03/20/25 14:58 Albumin 3.3 g/dL (3.4-5.0) L 03/20/25 14:58 Globulin 3.0 g/dL (2.5-4.5) 03/20/25 14:58 Albumin/Globulin Ratio 1.1 Ratio (1.1-2.1) 03/20/25 14:58 Specimen Type Clean catch urine 03/20/25 15: Urine Color Pale yellow (YELLOW) 03/20/25 15: Urine Appearance Clear (CLEAR) 03/20/25 15: Urine pH 6.0 (5.0 - 8.0) 03/20/25 15: Ur Specific [place] 1.015 (1.000-1.030) 03/20/25 15: Urine Protein 1+ (NEGATIVE) 03/20/25 15: Urine Glucose (UA) Negative (NEGATIVE) 03/20/25 15: Urine Ketones Negative (NEGATIVE) 03/20/25 15: Urine Blood Negative (NEGATIVE) 03/20/25 15:29 Urine Nitrite Negative (NEGATIVE) 03/20/25 15:29 Urine Bilirubin Negative (NEGATIVE) 03/20/25 15:29 Urine Urobilinogen Normal (NORMAL) 03/20/25 15:29 Ur Leukocyte Esterase Negative (NEGATIVE) 03/20/25 15:29 Urine RBC None seen /HPF (0-3) 03/20/25 15:29 Urine WBC 0-2 /HPF (0-5) 03/20/25 15:29 Ur Squamous Epith Cells Negative /HPF (NEGATIVE) 03/20/25 15:29 Urine Bacteria Trace /HPF (NEGATIVE) 03/20/25 15:29 Urine Mucus Rare /HPF (NEGATIVE) 03/20/25 15:29 Ur Culture Indicated? No/not indicated 03/20/25 15:29 XRAY X-ray Results: Name: TAMI WELSH : 1965 Sex: M Location: ER Order Number(s): [id number] Procedure(s):CHEST, 1 VIEW X-RAY Ordering Physician: John Gonzales Primary Care: HEIKE POSADAS Service Date: 03/20/25 Service Time: 1447 EXAM: CHEST HISTORY: SOB; COMPARISON: [email or web address] submitted for interpretation. FINDINGS: The cardiomediastinal silhouette is within normal limits. Lungs show right perihilar airspace disease. IMPRESSION: Right perihilar pneumonia THIS IS AN ELECTRONICALLY VERIFIED FINAL REPORT 03/20/2025 3:38 PM - Electronically signed by Tyler Ferreira MD Opioid Opioid Risk Tool Age (Nam box if 16-45): No History of Preadolescent Sexual Abuse: No Total: 0 Total Score Risk Category: Low Risk Copyright: [facility] predicting aberrant behaviors Discharge Plan Diagnosis Discharge Problem: Aspiration pneumonia Discharge Plan Patient Disposition: 09 ADMITTED INPATIENT Condition: Stable Prescriptions: No Action methylphenidate HCl 10 mg tablet 10 mg PO BID metformin 500 mg tablet extended release 24 hr 500 mg PO BID amantadine HCl 100 mg tablet 200 mg PO BID metoclopramide HCl 5 mg tablet 5 mg PO QID pantoprazole 40 MG tablet,delayed release (DR/EC) 40 mg PO DAILY atorvastatin 20 MG tablet 20 mg PO HS Qty: 30 0RF Rx Instructions: TAKE 1 TABLET BY MOUTH AT BEDTIME. melatonin 5 MG tablet 5 mg PO HS alprazolam [Xanax] 1 mg Tablet 1 mg PO HS aspirin 81 mg Tablet,Delayed Release (Dr/Ec) 81 mg PO DAILY ascorbic acid (vitamin C) [Vitamin C] 500 mg Tablet 500 mg PO DAILY levocetirizine 5 mg tablet 5 mg PO HS ipratropium-albuterol 0.5 mg-3 mg(2.5 mg base)/3 mL solution for nebulization 1 vial INHALATION TID cholecalciferol (vitamin D3) [Vitamin D3] 25 mcg (1,000 unit) Tablet 25 mcg PO QDAY donepezil [Aricept] 10 mg Tablet 10 mg PO HS valproic acid 250 mg capsule 500 mg PO BID Patient Comments: TAKE 2 CAPSULES BY MOUTH TWICE DAILY trazodone 100 mg tablet 100 mg PO HS fluoxetine 10 mg capsule 10 mg PO DAILY Patient Comments: TAKE 1 CAPSULE BY MOUTH DAILY glimepiride [Amaryl] 4 mg tablet 4 mg PO QDAY Qty: 30 0RF medroxyprogesterone 10 mg tablet 10 mg PO QDAY potassium chloride 10 mEq tablet extended release 10 meq PO QDAY furosemide 20 mg tablet 20 mg PO QDAY metoprolol succinate 25 mg tablet extended release 24 hr 12.5 mg PO QDAY celecoxib 100 mg capsule 100 mg PO QDAY sacubitril-valsartan [Entresto] 24-26 mg tablet 0.5 tab PO BID Humalog U-100 Insulin 100 unit/mL Cartridge See Rx Instructions .ROUTE .COMPLEX Rx Instructions: sliding scale Health Concerns: Post Hospitalization: new medications and changes needed to prevent readmission or further decline. Pt educated and given instructions on all concerns. Plan of Treatment: Continue with present treatment and follow up plan. Pt is to keep follow up appointment as instructed and take medications as ordered. Follow ups/Referrals Follow ups/Referrals: HEIKE POSADAS [Primary Care Provider, Unknown] - 3 days Instructions Print Language: SLOVENIAN
[2025-03-20] MEDS: NS 1,000 ML IV 1,000 ML IV SCH ×2 (15:03→17:08)
[2025-03-20 15:21] LABS: MEAN PLATELET VOLUME 9.4 fL (7.4-11.0); RED CELL DISTRIBUTION WIDTH 17.0 % (11.6-16.5)
[2025-03-20 15:24] LABS: INR 1.05 (0.8-1.3)
[2025-03-20 15:33] LABS: COR CA(FOR HYPOALB) 9.2 mg/dL (8.5-10.1); COR NA(FOR HYPERGLY) 141 mmol/L (136-145); CREATININE 1.43 mg/dL (0.70-1.30); eGFR NON BLACK RACES 54 (>60)
[2025-03-20 15:35] LABS: BLOOD/HEMOGLOBIN,URINE NEGATIVE (NEGATIVE); LEUKOCYTE ESTERASE ,URINE NEGATIVE (NEGATIVE); NITRITES,URINE NEGATIVE (NEGATIVE)
--- NOTE | 2025-03-20 15:41 | RAD ---
EXAM: CHEST HISTORY: SOB; COMPARISON: [email or web address] submitted for interpretation. FINDINGS: The cardiomediastinal silhouette is within normal limits. Lungs show right perihilar airspace disease. IMPRESSION: Right perihilar pneumonia THIS IS AN ELECTRONICALLY VERIFIED FINAL REPORT 03/20/2025 3:38 PM - Electronically signed by Tyler Ferreira MD
[2025-03-20 15:44] LABS: APPEARANCE,URINE CLEAR (CLEAR); SQUAMOUS EPITHELIAL CELL,UR NEGATIVE /HPF (NEGATIVE)
[2025-03-20] MEDS: ZOSYN VIAL 3.375 GRAMS 3.375 G in NS 100 ML IV 100 ML IV ONE (16:06)
[2025-03-20] MEDS ORDERED: NORCO 5/325 MG TAB PO PRN (16:58)
[2025-03-20] MEDS ORDERED: ULTRAM PO PRN (16:58)
[2025-03-20] MEDS ORDERED: CONSULT PHARMACY - POTASSIUM & MAGNESIUM XX SCH (17:00)
[2025-03-20] MEDS: REGLAN TAB 5 MG PO SCH (17:50)
[2025-03-20] MEDS: K-DUR TAB 20 MEQ PO ONE (17:50)
[2025-03-20 18:18] VITALS: BMI 26.2
[2025-03-20] MEDS ORDERED: NS 250 ML IV 250 ML IV ONE (20:23)
[2025-03-20] MEDS: DESYREL PO SCH (21:10)
[2025-03-20] MEDS: NS 250 ML IV 250 ML IV PRN (21:10)
[2025-03-20] MEDS: SNACK - Diabetic Appropriate PO SCH (21:10)
[2025-03-20] MEDS: ALPRAZOLAM ODT PO SCH (21:11)
[2025-03-20] MEDS: GLUCOPHAGE XR 24-HR PO SCH (21:11)
[2025-03-20] MEDS: ZOSYN VIAL 3.375 GRAMS 3.375 G in NS 100 ML IV 100 ML IV SCH (21:12)
[2025-03-20] MEDS: VALPROIC ACID 250 MG PO SCH (21:12)
[2025-03-20] MEDS: PULMICORT NEB TX 0.5 MG NEB SCH (21:26)
[2025-03-20] MEDS: DUONEB 0.5 MG/3 MG (3 mL) NEB SCH (21:26)
[2025-03-21 05:01] LABS: MEAN PLATELET VOLUME 10.3 fL (7.4-11.0); RED CELL DISTRIBUTION WIDTH 16.3 % (11.6-16.5)
[2025-03-21 05:14] LABS: COR CA(FOR HYPOALB) 9.3 mg/dL (8.5-10.1); COR NA(FOR HYPERGLY) 143 mmol/L (136-145); CREATININE 1.15 mg/dL (0.70-1.30); eGFR NON BLACK RACES > 60 (>60)
[2025-03-21] MEDS ORDERED: CONSULT PHARMACY - POTASSIUM & MAGNESIUM XX SCH (06:00)
[2025-03-21] MEDS: LASIX PO SCH (08:52)
[2025-03-21] MEDS: TOPROL XL PO SCH (08:53)
[2025-03-21] MEDS: MAG-OX TAB PO SCH (08:53)
[2025-03-21] MEDS: ASPIRIN EC 81 MG PO SCH (08:54)
[2025-03-21] MEDS: AMARYL TAB 4 MG PO SCH (08:54)
[2025-03-21] MEDS: DEPAKOTE D.R. TAB PO SCH (09:47)
--- NOTE | 2025-03-21 11:29 | DR.H&P ---
H&P History & Physical for Day of: H&P Date: 03/21/25 Chief Complaint Chief Complaint: lethargy, fever History of Present Illness History of Present Illness: Patient is a 59-year-old male with a past medical history of traumatic brain injury, generalized weakness, chronic pain, hypertension, type 2 diabetes and hyperlipidemia presented due to lethargy, weakness and fever. Patient has a history of aspiration pneumonia. Patient requires assistance with all ADLs and is nonverbal. noticed that patient might have possibly aspirated on Saturday after he was eating. He was brought in due to being more drowsy and had a fever. ER workup showed elevated WBC and lactic acid. Chest x-ray was concerning for right-sided pneumonia. UA was negative. Patient was started on IV antibiotics and fluids. Lab/imaging reviewed: - WBC 9.6 hemoglobin 10.3 platelet 111 potassium 4.0 creatinine 1.15 lactic acid 1.9 magnesium 1.4 - Urine analysis negative - AIT respiratory pending - Chest x-ray reviewed Plan: Admit to [facility]. Continue IV Zosyn, bronchodilators. Wean O2 as tolerated. Speech consult. Resume home medications as tolerated. Replace electrolytes as per protocol. Follow pending cultures. Monitor a.m. labs and imaging. Time spent for clinical assessment, reviewing labs/imaging, physical exam, decision making and documentation greater than 45 mins. Past Medical History Past Medical History: Depression, Diabetes, Dyslipidemia, GERD, Hypertension and Renal Disease Additional Medical History: Traumatic Brain Injury 2014, Muscle Weakness, Chronic Back Pain, Left sided weakness, Chronic Neck Pain, Chronic Knee Pain, ADD Past Surgical History Surgical History: Neurosurgery Additional Surgical History: Left knee surgery, Back surgery, Hernia Repair, prior tracheostomy and peg tube with brain injury Family History Family Medical History: Hypertension Social History Does patient currently use any type of tobacco product: No Have you used tobacco products in the last 12 months: No Type of Tobacco Use: Cigarettes Does any household member use tobacco: No Alcohol Use: None Drug Use: None Medications Home Medications: Home Medications Medication Instructions Recorded Confirmed Type pantoprazole 40 mg tablet,delayed 40 mg PO DAILY 01/1703/20/25 History release melatonin 5 mg tablet 5 mg PO HS 04/22/17 03/20/25 History alprazolam 1 mg tablet (Xanax) 1 mg PO HS 04/03/1810/09 History donepezil 10 mg tablet (Aricept) 10 mg PO HS 03/20/19 03/20/25 History fluoxetine 10 mg capsule 10 mg PO DAILY 06/17/2110/09 History trazodone 100 mg tablet 100 mg PO HS 06/17/21 History valproic acid 250 mg capsule 500 mg PO BID 06/17/21 History ascorbic acid (vitamin C) 500 mg 500 mg PO DAILY 01/1403/20/25 History tablet (Vitamin C) aspirin 81 mg tablet,delayed 81 mg PO DAILY 01/14/22 1 History release cholecalciferol (vitamin D3) 25 25 mcg PO QDAY 3 03/20/25 History mcg (1,000 unit) tablet (Vitamin D3) ipratropium 0.5 mg-albuterol 3 mg 1 vial inhalation TI D 12/06/22 03/20/25 History (2.5 mg base)/3 mL nebulization soln levocetirizine 5 mg tablet 5 mg PO HS 12/06/22 5 History amantadine HCl 100 mg tablet 200 mg PO BID 08/13/23 History metformin 500 mg tablet,extended 500 mg PO BID 4 03/20/25 History release 24 hr methylphenidate HCl 10 mg tablet 10 mg PO BID 08/13/23 03/20/25 History metoclopramide HCl 5 mg tablet 5 mg PO QID 08/16/23 History celecoxib 100 mg capsule 100 mg PO QDAY 03/20/2510/09 History furosemide 20 mg tablet 20 mg PO QDAY 03/20/2503/20 History insulin lispro 100 unit/mL See Rx Instructions .Route .COMPLEX 03/20/25 03/20/25 History subcutaneous cartridge (Humalog U-100 Insulin) medroxyprogesterone 10 mg tablet 10 mg PO QDAY 5 03/20/25 History metoprolol succinate 25 mg 12.5 mg PO QDAY 03/20/25 History tablet,extended release 24 hr potassium chloride 10 mEq 10 meq PO QDAY 03/20/2510/09 History tablet,extended release sacubitril 24 mg-valsartan 26 mg 0.5 tab PO BID 03/20/25 History tablet (Entresto) Allergies Allergies Allergy/AdvReac Type Severity Reaction Status Date / Time adhesive tape Allergy Verified 03/20/25 14:50 Labs 03/21/25 04:33 03/21/25 04:33 Labs: Laboratory WBC 9.6 X10^3/uL (3.6-10.0) 03/21/25 04:33 RBC 3.72 X10^6/uL (4.7-6.0) L 03/21/25 04:33 Hgb 10.3 g/dL (13.5-18.0) L 03/21/25 04:33 Hct 31.0 % (42.0-54.0) L 03/21/25 04:33 MCV 83.4 fL (80.0-100.0) 03/21/25 04:33 MCH 27.6 pg (27.0-34.0) 03/21/25 04:33 MCHC 33.1 g/dL (33.0-35.0) 03/21/25 04:33 RDW 16.3 % (11.6-16.5) 03/21/25 04:33 Plt Count 111 X10^3/uL (150.0-450.0) L 03/21/25 04:33 MPV 10.3 fL (7.4-11.0) 03/21/25 04:33 Neut % (Auto) 82.7 % (42.0-75.0) H 03/21/25 04:33 Lymph % (Auto) 8.6 % (21.0-51.0) L 03/21/25 04:33 [place] % (Auto) 6.9 % (0.0-13.0) 03/21/25 04:33 Eos % (Auto) 1.4 % (0.9-2.9) 03/21/25 04:33 Baso % (Auto) 0.4 % (0.2-1.0) 03/21/25 04:33 Neut # (Auto) 8.0 x10^3/uL (2.2-4.8) H 03/21/25 04:33 Lymph # (Auto) 0.8 X10^3/uL (1.3-2.9) L 03/21/25 04:33 [place] # (Auto) 0.7 x10^3/uL (0.3-0.8) 03/21/25 04:33 Eos # (Auto) 0.1 x10^3/uL (0.0-0.2) 03/21/25 04:33 Baso # (Auto) 0.0 X10^3/uL (0.0-0.1) 03/21/25 04:33 Absolute Nucleated RBC 0.2 /100WBC 03/21/25 04:33 PT 13.8 SECONDS (11.8-14.3) 03/20/25 14:58 INR Target Range - 03/20/25 14:58 INR 1.05 (0.8-1.3) 03/20/25 14:58 APTT 33.7 SECONDS (22.9-36.5) 03/20/25 14:58 PTT Comment - 03/20/25 14:58 Sodium 142 mmol/L (136-145) 03/21/25 04:33 Corrected Sodium 143 mmol/L (136-145) 03/21/25 04:33 Potassium 4.0 mmol/L (3.5-5.1) 03/21/25 04:33 Chloride 106 mmol/L (98-107) 03/21/25 04:33 Carbon Dioxide 23.9 mmol/L (21-32) 03/21/25 04:33 BUN 17 mg/dL (7-18) 03/21/25 04:33 Creatinine 1.15 mg/dL (0.70-1.30) 03/21/25 04:33 Est GFR (MDRD) Af Amer > 60 (>60) 03/21/25 04:33 Est GFR (MDRD) Non-Af > 60 (>60) 03/21/25 04:33 Glucose 138 mg/dL (65-99) H 03/21/25 04:33 POC Glucose (mg/dL) 206 mg/dL (65-99) H 03/21/25 11:05 Lactic Acid 1.9 mmol/L (0.4-2.0) 03/21/25 08:31 Calcium 8.3 mg/dL (8.5-10.1) L 03/21/25 04:33 Corrected Calcium 9.3 mg/dL (8.5-10.1) 03/21/25 04:33 Magnesium 1.4 mg/dL (2.0-2.9) L 03/21/25 04:33 Total Bilirubin 0.50 mg/dL (0.2-1.0) 03/21/25 04:33 AST 10 Units/L (15-37) L 03/21/25 04:33 ALT 23 Units/L (12-78) 03/21/25 04:33 Alkaline Phosphatase 68 Units/L (46-116) 03/21/25 04:33 Total Protein 5.9 g/dL (6.4-8.2) L 03/21/25 04:33 Albumin 2.8 g/dL (3.4-5.0) L 03/21/25 04:33 Globulin 3.1 g/dL (2.5-4.5) 03/21/25 04:33 Albumin/Globulin Ratio 0.9 Ratio (1.1-2.1) L 03/21/25 04:33 Specimen Type Clean catch urine 03/20/25 15: Urine Color Pale yellow (YELLOW) 03/20/25 15: Urine Appearance Clear (CLEAR) 03/20/25 15: Urine pH 6.0 (5.0 - 8.0) 03/20/25 15: Ur Specific [place] 1.015 (1.000-1.030) 03/20/25 15: Urine Protein 1+ (NEGATIVE) 03/20/25 15: Urine Glucose (UA) Negative (NEGATIVE) 03/20/25 15: Urine Ketones Negative (NEGATIVE) 03/20/25 15: Urine Blood Negative (NEGATIVE) 03/20/25 15: Urine Nitrite Negative (NEGATIVE) 03/20/25 15: Urine Bilirubin Negative (NEGATIVE) 03/20/25 15: Urine Urobilinogen Normal (NORMAL) 03/20/25 15: Ur Leukocyte Esterase Negative (NEGATIVE) 03/20/25 15: Urine RBC None seen /HPF (0-3) 03/20/25 15: Urine WBC 0-2 /HPF (0-5) 03/20/25 15: Ur Squamous Epith Cells Negative /HPF (NEGATIVE) 03/20/25 15:29 Urine Bacteria Trace /HPF (NEGATIVE) 03/20/25 15:29 Urine Mucus Rare /HPF (NEGATIVE) 03/20/25 15:29 Ur Culture Indicated? No/not indicated 03/20/25 15:29 Review of Systems Constitutional: Fever and Weakness Eyes: No Symptoms Reported ENT: No Symptoms Reported Respiratory: Cough Cardiovascular: No Symptoms Reported Gastrointestinal: No Symptoms Reported Genitourinary: No Symptoms Reported Musculoskeletal: No Symptoms Reported Skin: No Symptoms Reported Neurological: No Symptoms Reported Physical Exam Vital Signs: Vital Signs Temperature 97.6 F Temperature 97.9 F Pulse Rate [Radial] 92 Pulse Rate [Radial] 83 Respiratory Rate 19 Respiratory Rate 19 Blood Pressure [Right Arm] 110/68 Blood Pressure [Right Arm] 122/66 O2 Sat by Pulse Oximetry 94 O2 Sat by Pulse Oximetry 96 Oriented: Unable to test Respiratory: Diminished Throughout Cardiovascular: Normal Auscultation: Bowel Sounds: Normal Palpation: Normal Tenderness: Normal Skin: Decreased [place] Musculoskeletal: Normal Psychiatric: Normal Mood Description: Calm Affect: Normal Speech Pattern: Aphasic Assessment/Plan (1) Aspiration pneumonia: Status: Acute (2) Generalized weakness: Status: Acute (3) Hypomagnesemia: Status: Acute (4) GERD (gastroesophageal reflux disease): Qualifiers: Esophagitis presence: esophagitis presence not specified Qualified Code(s): K21.9 - Gastro-esophageal reflux disease without esophagitis Status: Chronic (5) Traumatic brain injury: Qualifiers: Encounter type: initial encounter Loss of consciousness presence/duration: with LOC of unspecified duration Qualified Code(s): S06.9X9A - Unspecified intracranial injury with loss of consciousness of unspecified duration, initial encounter Status: Chronic (6) Hyperlipidemia: Status: Chronic Review H&P Reviewed: Yes Patient was examined?: Yes
[2025-03-21] MEDS: TYLENOL 325 MG TAB PO PRN (16:47)
[2025-03-21] MEDS: BENADRYL CAP/TAB 25 MG PO SCH (22:42)
[2025-03-21] MEDS: MELATONIN PO SCH (22:43)
[2025-03-21] MEDS: MELATONIN ONE (22:48)
[2025-03-22 05:33] LABS: MEAN PLATELET VOLUME 10.4 fL (7.4-11.0); RED CELL DISTRIBUTION WIDTH 16.8 % (11.6-16.5)
[2025-03-22 05:47] LABS: COR CA(FOR HYPOALB) 9.5 mg/dL (8.5-10.1); COR NA(FOR HYPERGLY) 143 mmol/L (136-145); CREATININE 1.04 mg/dL (0.70-1.30); eGFR NON BLACK RACES > 60 (>60)
[2025-03-22] MEDS ORDERED: CONSULT PHARMACY - POTASSIUM & MAGNESIUM XX SCH (07:00)
[2025-03-22] MEDS: MAG-OX TAB PO SCH (08:28)
[2025-03-22] MEDS ORDERED: PHARMACY CONSULT XX SCH (10:00)
--- NOTE | 2025-03-22 16:33 | PCM.PROG ---
Progress Note Progress Note for Day of Date of Exam: 03/22/25 Subjective Subjective: Patient seen at bedside, no acute events overnight. He is admitted for aspiration pneumonia and weakness. He remains on IV antibiotics. AIT results pending. Speech consult pending. Lab/imaging reviewed: - WBC 8.1 hemoglobin 9.8 platelet 113 creatinine 1.04 potassium 4.1 glucose 142 - Blood cultures pending - AIT pending Plan: Continue IV antibiotics and hydration. Repeat chest x-ray. Continue bronchodilators. Follow-up pending culture results. Speech consult pending. Continue current diet. Continue home medications. PT/OT as tolerated. Replace electrolytes as per protocol. Monitor a.m. labs and imaging. Past Medical Family Social History Allergies: Allergies adhesive tape Allergy (Verified 03/20/25 14:50) Vital Signs and I&O's Vital Signs: Vital Signs Temperature 97.4 F Temperature 97.5 F Pulse Rate [Radial] 90 Pulse Rate [Radial] 93 Respiratory Rate 18 Respiratory Rate 18 Blood Pressure [Right Arm] 128/70 Blood Pressure [Right Arm] 139/76 O2 Sat by Pulse Oximetry 94 O2 Sat by Pulse Oximetry 96 O2 Sat by Pulse Oximetry 96 Intake and Output: Intake & Output 03/19/25 03/20/25 03/21/25 03/22/25 23:59 23:59 23:59 23:59 Intake Total 558 / 558 3209 / 3209 1809 / 1809 Output Total 1800 / 1800 1450 / 1450 Balance 558 / 558 1409 / 1409 359 / 359 Physical Exam Oriented: Unable to test Throat: Dry Respiratory: Generalized and Diminished Cardiovascular: Normal Auscultation: Bowel Sounds: Normal Palpation: Normal Tenderness: Normal Skin: Decreased [place] Musculoskeletal: Normal Psychiatric: Normal Mood Description: Calm Affect: Normal Speech Pattern: Aphasic Laboratory and Diagnostics 03/22/25 05:24 03/22/25 05:24 Labs: 03/20/25 15:08 Blood Blood Culture - Preliminary 03/20/25 14:58 Blood Blood Culture - Preliminary Laboratory WBC 8.1 X10^3/uL (3.6-10.0) 03/22/25 05:24 RBC 3.49 X10^6/uL (4.7-6.0) L 03/22/25 05:24 Hgb 9.8 g/dL (13.5-18.0) L 03/22/25 05:24 Hct 28.8 % (42.0-54.0) L 03/22/25 05:24 MCV 82.6 fL (80.0-100.0) 03/22/25 05:24 MCH 28.1 pg (27.0-34.0) 03/22/25 05:24 MCHC 34.0 g/dL (33.0-35.0) 03/22/25 05:24 RDW 16.8 % (11.6-16.5) H 03/22/25 05:24 Plt Count 113 X10^3/uL (150.0-450.0) L 03/22/25 05:24 MPV 10.4 fL (7.4-11.0) 03/22/25 05:24 Neut % (Auto) 79.5 % (42.0-75.0) H 03/22/25 05:24 Lymph % (Auto) 8.0 % (21.0-51.0) L 03/22/25 05:24 [place] % (Auto) 8.0 % (0.0-13.0) 03/22/25 05:24 Eos % (Auto) 4.2 % (0.9-2.9) H 03/22/25 05:24 Baso % (Auto) 0.3 % (0.2-1.0) 03/22/25 05:24 Neut # (Auto) 6.4 x10^3/uL (2.2-4.8) H 03/22/25 05:24 Lymph # (Auto) 0.6 X10^3/uL (1.3-2.9) L 03/22/25 05:24 [place] # (Auto) 0.6 x10^3/uL (0.3-0.8) 03/22/25 05:24 Eos # (Auto) 0.3 x10^3/uL (0.0-0.2) H 03/22/25 05:24 Baso # (Auto) 0.0 X10^3/uL (0.0-0.1) 03/22/25 05:24 Absolute Nucleated RBC 0.0 /100WBC 03/22/25 05:24 PT 13.8 SECONDS (11.8-14.3) 03/20/25 14:58 INR Target Range - 03/20/25 14:58 INR 1.05 (0.8-1.3) 03/20/25 14:58 APTT 33.7 SECONDS (22.9-36.5) 03/20/25 14:58 PTT Comment - 03/20/25 14:58 Sodium 142 mmol/L (136-145) 03/22/25 05:24 Corrected Sodium 143 mmol/L (136-145) 03/22/25 05:24 Potassium 4.1 mmol/L (3.5-5.1) 03/22/25 05:24 Chloride 106 mmol/L (98-107) 03/22/25 05:24 Carbon Dioxide 30.1 mmol/L (21-32) 03/22/25 05:24 BUN 14 mg/dL (7-18) 03/22/25 05:24 Creatinine 1.04 mg/dL (0.70-1.30) 03/22/25 05:24 Est GFR (MDRD) Af Amer > 60 (>60) 03/22/25 05:24 Est GFR (MDRD) Non-Af > 60 (>60) 03/22/25 05:24 Glucose 142 mg/dL (65-99) H 03/22/25 05:24 POC Glucose (mg/dL) 143 mg/dL (65-99) H 03/22/25 16:09 Lactic Acid 1.9 mmol/L (0.4-2.0) 03/21/25 08:31 Calcium 8.4 mg/dL (8.5-10.1) L 03/22/25 05:24 Corrected Calcium 9.5 mg/dL (8.5-10.1) 03/22/25 05:24 Magnesium 1.8 mg/dL (2.0-2.9) L 03/22/25 05:24 Total Bilirubin 0.30 mg/dL (0.2-1.0) 03/22/25 05:24 AST 8 Units/L (15-37) L 03/22/25 05:24 ALT 18 Units/L (12-78) 03/22/25 05:24 Alkaline Phosphatase 69 Units/L (46-116) 03/22/25 05:24 Total Protein 5.9 g/dL (6.4-8.2) L 03/22/25 05:24 Albumin 2.6 g/dL (3.4-5.0) L 03/22/25 05:24 Globulin 3.3 g/dL (2.5-4.5) 03/22/25 05:24 Albumin/Globulin Ratio 0.8 Ratio (1.1-2.1) L 03/22/25 05:24 Specimen Type Clean catch urine 03/20/25 15: Urine Color Pale yellow (YELLOW) 03/20/25 15: Urine Appearance Clear (CLEAR) 03/20/25 15: Urine pH 6.0 (5.0 - 8.0) 03/20/25 15: Ur Specific [place] 1.015 (1.000-1.030) 03/20/25 15: Urine Protein 1+ (NEGATIVE) 03/20/25 15: Urine Glucose (UA) Negative (NEGATIVE) 03/20/25 15: Urine Ketones Negative (NEGATIVE) 03/20/25 15: Urine Blood Negative (NEGATIVE) 03/20/25 15: Urine Nitrite Negative (NEGATIVE) 03/20/25 15: Urine Bilirubin Negative (NEGATIVE) 03/20/25 15: Urine Urobilinogen Normal (NORMAL) 03/20/25 15: Ur Leukocyte Esterase Negative (NEGATIVE) 03/20/25 15:29 Urine RBC None seen /HPF (0-3) 03/20/25 15:29 Urine WBC 0-2 /HPF (0-5) 03/20/25 15: Ur Squamous Epith Cells Negative /HPF (NEGATIVE) 03/20/25 15: Urine Bacteria Trace /HPF (NEGATIVE) 03/20/25 15: Urine Mucus Rare /HPF (NEGATIVE) 03/20/25 15: Ur Culture Indicated? No/not indicated 03/20/25 15: Plan (1) Aspiration pneumonia: Status: Acute (2) Generalized weakness: Status: Acute (3) Hypomagnesemia: Status: Acute (4) GERD (gastroesophageal reflux disease): Status: Chronic Qualifiers: Esophagitis presence: esophagitis presence not specified Qualified Code(s): K21.9 - Gastro-esophageal reflux disease without esophagitis (5) Traumatic brain injury: Status: Chronic Qualifiers: Encounter type: initial encounter Loss of consciousness presence/duration: with LOC of unspecified duration Qualified Code(s): S06.9X9A - Unspecified intracranial injury with loss of consciousness of unspecified duration, initial encounter (6) Hyperlipidemia: Status: Chronic
[2025-03-22] MEDS: ENTRESTO 24/26 MG TABLET PO SCH (22:06)
--- NOTE | 2025-03-22 23:52 | RAD ---
EXAMINATION: CHEST, 1 VIEW HISTORY: Aspiration pneumonia; . COMPARISON STUDY: Chest x-ray 03/20/2025 TECHNIQUE: Single portable AP view of the chest FINDINGS: Lungs are expanded. Patchy interstitial alveolar opacities mid and lower lung leija bilaterally. Mild cardiac silhouette enlargement. Tortuosity of the thoracic aorta. Bones are intact. IMPRESSION: Patchy infiltrates scattered in both lungs. Cardiac silhouette enlargement with tortuosity of the thoracic aorta. THIS IS AN ELECTRONICALLY VERIFIED FINAL REPORT 03/22/2025 11:49 PM - Electronically signed by Tati Sandoval MD
[2025-03-23 05:19] LABS: MEAN PLATELET VOLUME 9.5 fL (7.4-11.0); RED CELL DISTRIBUTION WIDTH 16.6 % (11.6-16.5)
[2025-03-23 05:23] LABS: COR CA(FOR HYPOALB) 9.6 mg/dL (8.5-10.1); COR NA(FOR HYPERGLY) 143 mmol/L (136-145); CREATININE 1.07 mg/dL (0.70-1.30); eGFR NON BLACK RACES > 60 (>60)
[2025-03-23 05:27] LABS: PLATELET MORPHOLOGY COMMENT NORMAL (NORMAL)
[2025-03-23 07:44] VITALS: RESP 18
[2025-03-23] MEDS: COLACE CAP 100 MG PO SCH (10:05)
[2025-03-23 11:56] VITALS: BP 122/68; PULSE 87; TEMP 97.4; O2SAT 96
== END 2025-03-23 16:05 | disposition home or self-care (01) ==
LOC: ER 14:32 → MED/SURG 14:32
PROVIDERS: ADMIT Internal Medicine; ATTEND Internal Medicine
DX: E11.65 Type 2 diabetes mellitus with hyperglycemia; R94.31 Abnormal electrocardiogram [ECG] [EKG]; E78.5 Hyperlipidemia, unspecified; Z87.820 Personal history of traumatic brain injury; M62.81 Muscle weakness (generalized); E83.42 Hypomagnesemia; R06.02 Shortness of breath; J69.0 Pneumonitis due to inhalation of food and vomit; R13.11 Dysphagia, oral phase; Z87.01 Personal history of pneumonia (recurrent); R26.89 Other abnormalities of gait and mobility; R41.841 Cognitive communication deficit; D72.828 Other elevated white blood cell count; R79.89 Other specified abnormal findings of blood chemistry; M54.2 Cervicalgia; I10 Essential (primary) hypertension; R53.83 Other fatigue